=== PATIENT | male | born 1945 | race Caucasian/White ===

== ENCOUNTER 2019-05-30 04:44 | Inpatient (IN) ==
--- NOTE | 2019-05-22 09:06 | PAT Medication Instructions ---
Medication Instructions Date of Service May 22, 2019 Home Medications Testesterone 1 dose INJ UD allopurinol 100 mg PO QPM coQ10 (ubiquinol) 100 mg PO QPM dbgmf-px-1-emz-fbz-eluaepz-ast [krill oil] 1 cap PO QPM metformin 500 mg PO QPM naproxen sodium [Aleve] 440 mg PO Q8H PRN omeprazole 20 mg PO HS sertraline 100 mg PO QPM simvastatin 20 mg PO HS tamsulosin 0.8 mg PO QPM turmeric root extract 500 mg PO QPM Continue as directed Testesterone 1 dose INJ UD ASK your surgeon for instructions naproxen sodium [Aleve] 440 mg PO Q8H PRN STOP taking 2 weeks before surgery (or as soon as possible if surgery is within 2 weeks) coQ10 (ubiquinol) 100 mg PO QPM zitzj-ve-0-ewb-cgx-iguhozl-ast [krill oil] 1 cap PO QPM turmeric root extract 500 mg PO QPM Take morning of surgery With a small sip of water, OTHERWISE NOTHING TO EAT OR DRINK AFTER MIDNIGHT: allopurinol 100 mg PO QPM omeprazole 20 mg PO HS sertraline 100 mg PO QPM simvastatin 20 mg PO HS tamsulosin 0.8 mg PO QPM Other Notes If you have any questions please call us at [phone] or [phone] or [phone] or [phone]
--- NOTE | 2019-05-23 09:54 | Anesthesiology Consultation ---
Date of Service May 23, 2019 Assessment & Plan (1) Encounter for pre-operative examination: - Awaiting surgeon-ordered PCP clearance (KOLE Asher). - Awaiting preop testing (labs). - Awaiting preop EKG tracings (received written report from 04/2019- [facility]). - Possible difficult intubation: due to decreased cervical extension Chart Review Chart Review: Patient seen in Pre Admission Testing Teaching & Discussion Pre-Anesthesia Teaching/Discussion Notes: Instructed NPO after midnight before surgery,except medications with 15 cc of water. Medication instructions provided according to the PAT guidelines. History Surgery Operation Date: 05/30/19 07:30 Proposed Procedures p Left Reverse Shoulder Arthroplasty - Scott Marin M.D. Height/Weight Height: 5 ft 11 in Weight: 118 kg Allergies Allergy/AdvReac Type Severity Reaction Status Date / Time adhesive tape Allergy Unknown SKIN Verified 05/16/19 14:03 IRRITATION Medications Home Medications Medication Instructions Recorded Confirmed Last Taken Testesterone 1 dose INJ UD 05/16/19 Unknown allopurinol 100 mg PO QPM 05/16/19 05/16/19 Unknown coQ10 (ubiquinol) 100 mg PO QPM 05/16/19 05/16/19 Unknown bxggy-xz-2-ruf-mbj-vezvubz-ast 1 cap PO QPM 05/16/19 05/16/19 Unknown [krill oil] metformin 500 mg PO QPM 05/16/19 05/16/19 Unknown naproxen sodium [Aleve] 440 mg PO Q8H PRN 05/16/19 05/16/19 Unknown omeprazole 20 mg PO HS 05/16/19 05/16/19 Unknown sertraline 100 mg PO QPM 05/16/19 05/16/19 Unknown simvastatin 20 mg PO HS 05/16/19 05/16/19 Unknown tamsulosin 0.8 mg PO QPM 05/16/19 05/16/19 Unknown turmeric root extract 500 mg PO QPM 05/16/19 05/16/19 Unknown Past Medical History Medical History Arthritis BPH (benign prostatic hyperplasia) Cancer skin (s/p excision)- ?BCC vs. SCC Diabetes mellitus, type 2 NIDDM GERD (gastroesophageal reflux disease) controlled Hiatal hernia Hyperlipidemia Low testosterone testosterone injections q10 days Obesity Sleep apnea CPAP Exercise / Class Metabolic Activity III < 4 Walking/Shop/Light housework Past Surgical History Surgical History Fusion of spine S/P CERVICAL FRACTURE-RODS IN PLACE 1995 Hemorrhoids REMOVAL History of bowel resection FOR PERFORATION WITH COLOSTOMY/AND REVERSAL COLOSTOMY History of herniorrhaphy MULTIPLE History of repair of rotator cuff LEFT History of tonsillectomy History of total hip arthroplasty R/L History of total knee replacement R/L Past Anesthesia History No Hx of Anesthesia Complications and No Family Hx of Anesthesia Complications History of PONV No Hx of PONV and Hx of Motion Sickness Social History Smoking Status: Former smoker Do You Dip or Chew Tobacco: No Smoking End Date: QUIT 50 YRS AGO Hx Alcohol Use: Yes Alcohol type: beer and hard liquor alcohol intake frequency: a few times a month Hx Substance Use: No Review of Systems Reflux controlled. Patient denies chest pain, shortness of breath, cough, wheezing, palpitations. Physical Exam Vital Signs VITALS BP 145/91 P 67 TEMP 98.3 SP02 95%RA RESP 18 PHYSICAL Decreased cervical extension s/p cervical rods Full TMJ range of motion. TMD 3 finger breaths Mallampati Score 3 Dentition: missing sides on lower, full dentures on upper Lungs: clear throughout to auscultation Cardiac: regular rate and rhythm, no murmurs noted Spine: normal Carotid arteries: negative bruit Extremities: no edema Testing Laboratory Results 04/25/19 WBC 7.04 H/H 15.2/47.0 PLATELETS 258 SODIUM 136 POTASSIUM 4.2 CHLORIDE 103 CO2 29 BUN 16 CREATININE 1.30 GLUCOSE 114 HGBA1C 5.7% Electrocardiogram Date: 04/25/19 SR with occasional PVC's with occasional SPVC's. NS TWA (per written report; awaiting tracings) Chest X-Ray Date: 04/25/19 Chronic pleural thickening along right chest wall laterally and inferiorly. No lobar consolidations or infiltrate.
[2019-05-23 11:21] LABS: Appearance Urine Clear (Clear); Bacteria Urine Automated Negative (Negative); Bilirubin Urine Negative (Negative); Blood Urine Negative (Negative); Cast Urine Automated 0 /lpf (0-5); Color Urine Yellow; Glucose Urine UA Negative (Negative); Ketones Urine Negative (Negative); Leukocyte Esterase Urine Trace (Negative); Nitrite Urine Negative (Negative); Protein Urine Negative (Negative); RBC Urine Automated 0-4 /hpf (0-4); Specific Gravity Urine 1.018 (1.000-1.030); Urobilinogen Urine Negative (Negative)
[2019-05-23 11:25] LABS: Partial Thromboplastin Ratio 1.1; Partial Thromboplastin Time 30.6 Seconds (21.0-31.0); Prothrombin Time 10.5 Seconds (9.0-12.0)
--- NOTE | 2019-05-29 15:41 | History & Physical Report ---
Date of Service May 29, 2019 Assessment & Plan (1) Rotator cuff tear arthropathy of left shoulder: He again has left shoulder rotator cuff tear arthropathy. His previous rotator cuff repair from 2015 has failed, and he has a recurrent full-thickness tear with retraction and fatty atrophy of the rotator cuff muscle bellies. He has already failed a long course of conservative treatment with injections. I again offered him a reverse total shoulder arthroplasty, and he is in agreement with this plan. His diagnosis and the implant were explained in detail. We reviewed his patient specific implant planned today. He has been cleared for surgery by his primary care physician, and I reviewed this today. Risks, benefits, and alternatives of surgery were explained in detail. The surgical procedure, as well as postoperative recovery and rehabilitation, was also explained in detail. Risks include bleeding; infection; damage to surrounding structures such as nerves, blood vessels, and tendons that run in the area; persistent pain or stiffness; hardware failure; dislocation; brachial plexus palsy; blood clots; or need for further surgery. The patient understands all of this and wishes to proceed with surgery. Preoperative workup was completed today, and informed consent was obtained. Present on Admission?: Yes History of Present Illness Chief Complaint: Left shoulder pain Primary Care Provider: NO PCP Mr. Potter is a 73-year-old [id number]-wegb-juptuclk male who has had problems with his left shoulder for many years. He previously underwent a left shoulder rotator cuff repair back [place] [address] Haynes. He reports that after the surgery, he never really regained any good strength in that left shoulder. He had persistent pain and weakness, and poor function. This has progressively worsened over the past 3 to 4 years. He has required numerous injections into that left shoulder over the past 3 years. He thinks that he has had at least 6 to 8 injections in that left shoulder. These typically only last a few weeks. He last had an injection about 2 weeks ago, and it has already worn off. This pain is quite severe, and keeps him up at night. It is significantly limiting his activities of daily living. Allergies Allergy/AdvReac Type Severity Reaction Status Date / Time adhesive tape Allergy Unknown SKIN Verified 05/16/19 14:03 IRRITATION Home Medications Home Medications Medication Instructions Recorded Confirmed Type Testesterone 1 dose INJ UD 05/16/19 History allopurinol 100 mg PO QPM 05/16/19 05/16/19 History coQ10 (ubiquinol) 100 mg PO QPM 05/16/19 05/16/19 History qamyd-au-9-gvn-ekt-dsfwrfh-ast 1 cap PO QPM 05/16/19 05/16/19 History [krill oil] metformin 500 mg PO QPM 05/16/19 05/16/19 History naproxen sodium [Aleve] 440 mg PO Q8H PRN 05/16/19 05/16/19 History omeprazole 20 mg PO HS 05/16/19 05/16/19 History sertraline 100 mg PO QPM 05/16/19 05/16/19 History simvastatin 20 mg PO HS 05/16/19 05/16/19 History tamsulosin 0.8 mg PO QPM 05/16/19 05/16/19 History turmeric root extract 500 mg PO QPM 05/16/19 05/16/19 History Past Med/Surg History Medical History Arthritis BPH (benign prostatic hyperplasia) Cancer skin (s/p excision)- ?BCC vs. SCC Diabetes mellitus, type 2 NIDDM GERD (gastroesophageal reflux disease) controlled Hiatal hernia Hyperlipidemia Low testosterone testosterone injections q10 days Obesity Sleep apnea CPAP Surgical History Fusion of spine S/P CERVICAL FRACTURE-RODS IN PLACE 1995 Hemorrhoids REMOVAL History of bowel resection FOR PERFORATION WITH COLOSTOMY/AND REVERSAL COLOSTOMY History of herniorrhaphy MULTIPLE History of repair of rotator cuff LEFT History of tonsillectomy History of total hip arthroplasty R/L History of total knee replacement R/L Social History Preferred Language: Greenlandic Communication Ability: Effective Dry Ice Maker Required: No Beliefs That Will Affect Care: None Current Living Situation: Spouse Other Information That Helps Us Care for You: No Feels Safe at Home: Yes Safety Concerns: Feels Safe At This Time Smoking Status: Former smoker Do You Dip or Chew Tobacco: No ; Smoking End Date: QUIT 50 YRS AGO ; Second Hand Exposure: No ; Hx Alcohol Use: Yes Alcohol type: beer and hard liquor Hx Substance Use: No Physical Exam Physical Exam: General: The patient appears well developed and well nourished. Awake, alert, and oriented x 3. Appropriate mood and affect. Normal gait and station. Normal coordination and balance. Skin: The skin over the left shoulder shows no lesion or erythema. Inspection/Palpation: Visual inspection reveals no gross deformity of the left shoulder. There is no palpable focal swelling. No significant focal tenderness to palpation. Range of Motion: There is limitation in shoulder range of motion due to pain. He can only actively abduct up to about 70 degrees on his left shoulder, and about 100 degrees on his right. Stability: There is no gross ligamentous laxity. Strength: Supraspinatus strength is very poor. Infraspinatus strength is also very weak. Subscapularis strength is well-maintained. Sensation: The patient reports no numbness in the hand. Vascular: Hand is warm and well perfused. No diffuse edema. Results & Data Diagnostic Findings Previous x-rays and MRI of his left shoulder were reviewed. He has proximal migration of his humeral head, a full-thickness retracted rotator cuff tear, and fatty atrophy of his supraspinatus and infraspinatus muscle bellies. He has obvious anchors in the humeral head consistent with a previous rotator cuff repair. He does have some arthritic degeneration of the glenohumeral joint.
[2019-05-30] MEDS ORDERED: GABAPENTIN 300 MG CAP PO SCH (06:00)
[2019-05-30] MEDS ORDERED: ACETAMINOPHEN 500 MG TAB PO SCH (06:00)
[2019-05-30] MEDS ORDERED: ROPIVACAINE 0.5% HCL/PF 150 MG, BUPIVACAINE 0.5% MPF 30 ML, EPINEPHrine 30MG/30ML (OR U... INFIL SCH (06:00)
[2019-05-30] MEDS ORDERED: dexAMETHasone 4 MG TAB PO SCH (06:00)
[2019-05-30] MEDS ORDERED: CEFAZOLIN 2000MG 2,000 MG/15 ML SYR IV SCH (06:00)
[2019-05-30] MEDS ORDERED: LR 500ML BOLUS, THEN 15ML/HR IV SCH (06:00)
[2019-05-30] MEDS ORDERED: CeleBREX 200 MG CAP PO SCH (06:00)
[2019-05-30] MEDS ORDERED: FAMOTIDINE 20 MG TAB PO SCH (06:00)
[2019-05-30] MEDS ORDERED: BUPIVACAINE/EPINEPHRINE 0.25% 1:200,000 30 ML VIAL ONE (06:24)
[2019-05-30] MEDS ORDERED: fentaNYL citrate 100 MCG/2 ML VIAL ONE (06:59)
[2019-05-30] MEDS ORDERED: MIDAZOLAM HCL 1 MG/ML 2ML VIAL ONE (06:59)
[2019-05-30] MEDS ORDERED: ONDANSETRON INJ 2 MG/ML 2 ML VIAL IV PRN ×2 (06:59→10:59)
[2019-05-30] MEDS ORDERED: fentaNYL citrate 100 MCG/2 ML VIAL IV PRN (06:59)
[2019-05-30] MEDS ORDERED: ePHEDrine sulfate 50 MG/ML AMP IV PRN (06:59)
[2019-05-30] MEDS ORDERED: TRANEXAMIC ACID 1,000 MG in 0.9 % SODIUM CHLORIDE 100 ML IV ONE (06:59)
[2019-05-30] MEDS ORDERED: ATROPINE SULFATE 0.1 MG/ML 10ML SYR IV PRN (06:59)
[2019-05-30] MEDS ORDERED: BACITRACIN INJ 50,000 UNIT VIAL ONE (07:02)
[2019-05-30] MEDS ORDERED: BUPIVACAINE 0.5 % 5 MG/1 ML PF 10ML VIAL ONE (07:04)
--- NOTE | 2019-05-30 07:11 | History & Physical Bridge Note ---
Date of Service May 30, 2019 History & Physical Bridge Note I have examined the patient, reviewed the History & Physical and in the interval since the performance of the History & Physical I have noted the following changes of clinical significance: no changes noted
[2019-05-30] MEDS ORDERED: ROCURONIUM BROMIDE 10 MG/ML 5 ML VIAL ONE (08:20)
[2019-05-30] MEDS ORDERED: ONDANSETRON INJ 2 MG/ML 2 ML VIAL ONE (08:20)
[2019-05-30] MEDS ORDERED: PROPOFOL IV EMULSION 10 MG/ML 20 ML VIAL IV ONE (08:20)
[2019-05-30] MEDS ORDERED: KETAMINE HCL INJ 50 MG/ML 10 ML VIAL ONE (08:35)
[2019-05-30] MEDS ORDERED: NEOSTIGMINE METHYLSULFATE 5 MG/5 ML SYR ONE (08:42)
[2019-05-30] MEDS ORDERED: GLYCOPYRROLATE 0.2 MG/ML VIAL ONE ×2 (08:42→08:45)
[2019-05-30] MEDS ORDERED: PHENYLEPHRINE HCL 10 MG/ML VIAL ONE (09:15)
--- NOTE | 2019-05-30 10:17 | Post Operative Brief Note ---
Immediate Post Op Note v1 Date of Surgery May 30, 2019 Pre & Post Diagnosis Operation Date: 05/30/19 07:15 Pre-Op Diagnosis: Left Shoulder Rotator Cuff Tear Arthropathy Post-Op Diagnosis: Left Shoulder Rotator Cuff Tear Arthropathy I identified the patient and participated in the time-out.: Yes Procedure Operation Date: 05/30/19 07:15 Actual Procedures p Left Reverse Shoulder Arthroplasty(Left) - Scott Marin M.D. Surgeon Scott Marin Director Of Field Sales Santino Friedman PA-C Estimated Blood Loss 100 Findings Consistent with Post-Op Diagnosis Anesthesia Type General Regional Complications none Disposition Disposition: Recovery Room Overlapping Procedure I was present for: the critical portions of procedure. I was immediately available: during the entire case.
--- NOTE | 2019-05-30 10:22 | Operative Report ---
Post Operative Report Pre & Post Diagnosis Operation Date: 05/30/19 07:15 Pre-Op Diagnosis: Left Shoulder Rotator Cuff Tear Arthropathy Post-Op Diagnosis: Left Shoulder Rotator Cuff Tear Arthropathy I identified the patient and participated in the time-out.: Yes Procedure Operation Date: 05/30/19 07:15 Actual Procedures Left Reverse Total Shoulder Arthroplasty (87756) with biceps tenodesis (45877) - Scott Marin M.D. Surgeon Scott Marin Estate Conservator Santino Friedman PA-C Estimated Blood Loss 100 Findings Consistent with Post-Op Diagnosis Specimens None Drains None Anesthesia Type General Regional Complications none Disposition Disposition: Recovery Room Indications Mr. Potter is a 73-year old male with chronic left shoulder pain. Preoperative imaging showed rotator cuff tear arthropathy. Description of Procedure Left reverse Total Shoulder Arthroplasty (15546) with biceps tenodesis () Components Implanted: Tornier Reverse Total Shoulder implants Perform glenoid baseplate: 29mm, 15 degree full wedge with 6.5mm central screw and 5.0mm peripheral screws Glenosphere: 39mm, 3mm eccentric offset Ascend Flex humeral stem: 4B Standard length (78mm) Humeral tray: 1.5mm offset, +0mm thickness Polyethylene insert: 39mm, +6mm thickness Patient was identified in the preoperative holding area. Operative extremity was marked. Regional blockade was given by the Anesthesia Staff. Patient was then brought back to the operating room, and general anesthesia was induced without complication. Appropriate weight-based dose of Ancef was infused intravenously for antibiotic prophylaxis. The patient was then placed in the beachchair position. Left arm was then prepped and draped in a standard sterile fashion using Chlorhexidine prep. A standard deltopectoral incision was made through the skin and subcutaneous tissue. The cephalic vein was identified and retracted medially. Small branches to the deltoid were coagulated as necessary. The clavipectoral fascia was then incised and the subdeltoid space was opened. The rotator cuff was found to be deficient, and I therefore decided to perform a reverse total shoulder arthroplasty as planned preoperatively. The biceps tendon was identified within the bicipital groove and tenodesed at the superior border of the pectoralis tendon with #2 FiberWire sutures. The biceps tendon was then divided proximal to the tenodesis site and the rotator interval was opened. The proximal portion of the biceps tendon was excised. The remaining subscapularis tendon was elevated subperiosteally off of the lesser tuberosity and tagged with a #0 Vicryl suture. The glenohumeral joint was then dislocated, and large osteophytes were debrided with a ronguer. The humeral head cut was then made in the appropriate inclination and version using the cutting guide. The intramedullary canal of the humerus was then opened with a canal finder. The humeral canal was then sequentially broached to the appropriate size. A protective cap was then placed on top of the humeral trial. I then turned my attention to the glenoid. The proximal stump of the biceps tendon was excised, along with the labrum circumferentially around the glenoid. The blueprint drill guide was then positioned on the glenoid, and the guidepin was then inserted. The 15 degree angled reamer reamer was then inserted over the guidepin and an reamed to an appropriate depth. The central screw hole was drilled and tapped, and appropriate length 6.5mm central screw was selected. The baseplate was then implanted into place according to our preoperative blueprint plan by tightening down the central screw. A peripheral 5mm nonlocking screw was placed superiorly first for additional compression of the baseplate, and then additional locking 5 mm peripheral screws were placed to complete fixation of the baseplate. Glenosphere was then impacted and secured. A trial humeral tray and insert were placed on the trial humeral stem, and a trial reduction was carried out. Once I achieved acceptable joint stability and range of motion with the trial implants, the final humeral implants were a ssembled on the back table and then impacted into position. I then took the shoulder through full range of motion to ensure good stability and acceptable motion. Wound was then copiously irrigated with sterile saline. Deep fascia was closed with 0 V-lock suture. Subcutaneous tissue was closed with 2-0 V-lock, and skin was closed with 3-0 V-lock. Skin was then sealed with Dermabond. Sterile d ressings were then applied with a waterproof silver-impregnated dressing. The drapes were removed, the patient was awakened from anesthesia, and taken to the Post Anesthesia Care Unit in stable condition. There were no immediate complications from the procedure. I was present and scrubbed for the entire procedure. Due to the complex nature of the procedure, the entire surgery was performed wi th the operational assistance of Santino Friedman PA-C. The warehouse administrative assistant, under direct supervision, was involved in the performance of all aspects of the surgical procedure including patient positioning, tissue retraction, hemostasis, wound closure, and dressing application. I attest to the content of the Intraoperative Record and any orders documented therein. Any exceptions are noted below.
[2019-05-30] MEDS ORDERED: NALOXONE HCL 0.4 MG/1 ML VIAL/CARP IV PRN (10:59)
[2019-05-30] MEDS ORDERED: MAGNESIUM HYDROXIDE SUSP 30 ML UDC PO PRN (10:59)
[2019-05-30] MEDS ORDERED: METOCLOPRAMIDE HCL INJ 5 MG/ML 2 ML VIAL IV PRN (10:59)
[2019-05-30] MEDS ORDERED: bisacodyL 10 MG SUPP PR PRN (10:59)
[2019-05-30] MEDS ORDERED: OXYCODONE HCL IR 5 MG TAB (IMMEDIATE RELEASE) PO PRN (10:59)
[2019-05-30] MEDS ORDERED: SODIUM CHLORIDE 0.9% 1000ML 1,000 ML IV SCH (11:00)
--- NOTE | 2019-05-30 11:21 | XRay Report ---
XR shoulder LT 1V CLINICAL HISTORY: Postoperative evaluation. COMPARISON: None FINDINGS: Alignment of the left shoulder arthroplasty is anatomic. There is no fracture or unexpecte d radiopaque foreign body. Anterior cervical spine fusion is incidentally noted. IMPRESSION: Expected findings following left shoulder arthroplasty. Electronically signed by: Tarun Cueto M.D. 05/30/2019 11:20 AM
--- NOTE | 2019-05-30 11:22 | Anesthesiology Progress Note ---
Date of Service May 30, 2019 k Anesthesia Post Procedure Vital Signs Vital Signs: Temp Pulse Pulse Pulse Resp BP BP 05/30/19 11:20 79 17 05/30/19 11:19 36.4 C L 05/30/19 11:15 81 15 135/82 05/30/19 11:10 79 22 139/79 05/30/19 11:06 87 24 140/74 05/30/19 11:05 83 20 05/30/19 11:00 83 17 135/91 05/30/19 10:55 82 18 137/80 05/30/19 10:50 81 17 134/81 05/30/19 10:45 86 21 142/87 H 05/30/19 10:41 89 21 112/85 05/30/19 10:40 89 15 05/30/19 10:36 35.8 C L 92 H 94 H 20 141/85 H 141/85 H 05/30/19 05:27 36.6 C 77 20 142/81 H Pulse Ox 05/30/19 11:20 96 05/30/19 11:19 96 05/30/19 11:15 96 05/30/19 11:10 94 05/30/19 11:06 97 05/30/19 11:05 95 05/30/19 11:00 94 05/30/19 10:55 96 05/30/19 10:50 97 05/30/19 10:45 96 05/30/19 10:41 95 05/30/19 10:40 95 05/30/19 10:36 95 05/30/19 05:27 96 Pain Intensity Left Shoulder: Pain Intensity: 0 Transfer of Care Handoff Completed per policy Notes Mental Status: alert / awake / arousable and participated in evaluation Patient Amnestic to Procedure: Yes Nausea / Vomiting: adequately controlled Pain: adequately controlled Airway Patency, RR, SpO2: stable & adequate BP & HR: stable & adequate Hydration State: stable & adequate Anesthetic Complications: no major complications apparent and Pt Satisfied with anesthetic care
[2019-05-30] MEDS ORDERED: NAPROXEN 375 MG TAB PO PRN (11:40)
[2019-05-30] MEDS: CEFAZOLIN 2000MG 2,000 MG/15 ML SYR IV SCH ×2 (15:33→22:55)
[2019-05-30] MEDS: DOCUSATE SODIUM 100 MG CAP PO SCH (20:27)
[2019-05-30] MEDS ORDERED: PANTOprazole 40 MG TAB PO SCH (21:00)
[2019-05-30] MEDS ORDERED: METFORMIN HCL 500 MG TAB PO SCH (21:00)
[2019-05-30] MEDS ORDERED: SERTRALINE HCL 100 MG TABLET PO SCH (21:00)
[2019-05-30] MEDS ORDERED: SIMVASTATIN 20 MG TAB PO SCH (21:00)
[2019-05-30] MEDS ORDERED: NON-FORMULARY MEDICATION (Coq10 (Ubiquinol) 100 MG) PO SCH (21:00)
[2019-05-30] MEDS ORDERED: NON-FORMULARY MEDICATION (Turmeric Root Extract 500 MG) PO SCH (21:00)
[2019-05-30] MEDS ORDERED: NON-FORMULARY MEDICATION (Krill-Om-3-Dha-Epa-Phospho-Ast [Krill Oil] 1 CAP) PO SCH (21:00)
[2019-05-30] MEDS ORDERED: allopurinoL 100 MG TAB PO SCH (21:00)
[2019-05-30] MEDS ORDERED: SENNA 8.6 MG TAB PO SCH (21:00)
[2019-05-30] MEDS ORDERED: TAMSULOSIN HCL 0.4 MG CAP PO SCH (21:00)
[2019-05-30] MEDS: ACETAMINOPHEN 500 MG TAB PO SCH (22:55)
[2019-05-30] MEDS: IBUPROFEN 600 MG TAB PO SCH (22:55)
[2019-05-31] MEDS: IBUPROFEN 600 MG TAB PO SCH ×2 (05:09→09:30)
[2019-05-31] MEDS: ACETAMINOPHEN 500 MG TAB PO SCH ×2 (05:09→09:30)
[2019-05-31 05:20] LABS: Hematocrit (blood only) 41.6 % (42-52); Hemoglobin 13.8 g/dL (14.0-18.0); Mean Corpuscular Hemoglobin 29.3 pg (25-34); Mean Corpuscular Hgb Conc 33.2 g/dL (32-36); Mean Corpuscular Volume 88.3 fL (80-100); Mean Platelet Volume 9.3 fL (7.4-10.4); Platelet Count 254 K/uL (130-400); RDW Coefficient of Variation 14.6 % (11.5-14.5); RDW Standard Deviation 47.2 fL (36.4-46.3); Red Blood Count 4.71 M/uL (4.7-6.1); White Blood Count 13.61 K/uL (4.8-10.8)
[2019-05-31 05:50] LABS: BUN Creatinine Ratio 13.5 (10-20); Calcium 8.5 mg/dl (8.5-10.1); Est GFR (African American) 56.9; Est GFR (Non-African American) 49.1; Potassium 4.5 mmol/L (3.5-5.1)
[2019-05-31] MEDS ORDERED: LEVOTHYROXINE SODIUM 50 MCG TABLET PO SCH (06:30)
--- NOTE | 2019-05-31 07:45 | Anesthesiology Progress Note ---
Date of Service May 31, 2019 Anesthesia Post Procedure Vital Signs Vital Signs: Temp Pulse Pulse Pulse Resp BP BP 05/31/19 07:22 36.8 C 87 16 107/67 05/31/19 03:00 36.4 C L 77 18 136/85 05/30/19 23:10 36.7 C 85 18 127/81 05/30/19 14:54 36.7 C 91 H 18 142/93 H 05/30/19 13:51 93 H 16 128/75 05/30/19 12:41 87 16 131/72 05/30/19 12:15 87 17 124/86 05/30/19 11:45 36.8 C 83 18 124/80 05/30/19 11:35 79 18 135/87 05/30/19 11:30 78 15 141/86 H 05/30/19 11:26 83 18 136/91 05/30/19 11:25 77 16 05/30/19 11:20 79 17 05/30/19 11:19 36.4 C L 05/30/19 11:15 81 15 135/82 05/30/19 11:10 79 22 139/79 05/30/19 11:06 87 24 140/74 05/30/19 11:05 83 20 05/30/19 11:00 83 17 135/91 05/30/19 10:55 82 18 137/80 05/30/19 10:50 81 17 134/81 05/30/19 10:45 86 21 142/87 H 05/30/19 10:41 89 21 112/85 05/30/19 10:40 89 15 05/30/19 10:36 35.8 C L 92 H 94 H 20 141/85 H 141/85 H Pulse Ox 05/31/19 07:22 94 05/31/19 03:00 92 05/30/19 23:10 91 05/30/19 14:54 95 05/30/19 13:51 94 05/30/19 12:41 94 05/30/19 12:15 96 05/30/19 11:45 93 05/30/19 11:35 96 05/30/19 11:30 96 05/30/19 11:26 95 05/30/19 11:25 97 05/30/19 11:20 96 05/30/19 11:19 96 05/30/19 11:15 96 05/30/19 11:10 94 05/30/19 11:06 97 05/30/19 11:05 95 05/30/19 11:00 94 05/30/19 10:55 96 05/30/19 10:50 97 05/30/19 10:45 96 05/30/19 10:41 95 05/30/19 10:40 95 05/30/19 10:36 95 Pain Intensity Left Shoulder: Pain Intensity: 0 Notes Mental Status: alert / awake / arousable and participated in evaluation Nausea / Vomiting: adequately controlled Pain: adequately controlled Airway Patency, RR, SpO2: stable & adequate BP & HR: stable & adequate Hydration State: stable & adequate Neuraxial Anesthesia: sensory block resolved
--- NOTE | 2019-05-31 08:31 | Orthopedic Progress Note ---
Date of Service May 31, 2019 Assessment & Plan (1) Rotator cuff tear arthropathy of left shoulder: POD 1 s/p Left Reverse TSA PT today. DVT prophylaxis - ASA, SCD's Pain management as written. DC planning - OPPT upon discharge. Plan for dc to home today. Subjective Pt sitting up in chair at bedside. No complaints. Pain controlled. Denies SOB,CP,LH. Hoping to go home today. Physical Exam Physical Exam: Awake, alert. Dressings C/D/I. Has some residual numbness in the left thumb but ROM of the wrist/fingers wnl. Rest of sensation intact. Sling in place. Cap refill < 2 seconds. Results & Data Vital Signs (Past 12 Hours) Vital Signs Temp Pulse Resp BP Pulse Ox 05/31/19 07:22 36.8 C 87 16 107/67 94 05/31/19 03:00 36.4 C L 77 18 136/85 92 05/30/19 23:10 36.7 C 85 18 127/81 91
[2019-05-31] MEDS: DOCUSATE SODIUM 100 MG CAP PO SCH (08:36)
[2019-05-31] MEDS ORDERED: ASPIRIN 325 MG ECTAB PO SCH ×2 (09:00)
[2019-05-31] MEDS ORDERED: MULTIVITAMIN TAB PO SCH (09:00)
--- NOTE | 2019-05-31 17:04 | Discharge Summary ---
Date of Service May 31, 2019 Admission HPI Per Admitting Provider Mr. Potter is a 73-year-old [id number] male who has had problems with his left shoulder for many years. He previously underwent a left shoulder rotator cuff [place] back [place] [address] Haynes. He reports that after the surgery, he never really regained any good strength in that left shoulder. He had persistent pain and weakness, and poor function. This has progressively worsened over the past 3 to 4 years. He has required numerous injections into that left shoulder over the past 3 years. He thinks that he has had at least 6 to 8 injections in that left shoulder. These typically only last a few weeks. He last had an injection about 2 weeks ago, and it has already worn off. This pain is quite severe, and keeps him up at night. It is significantly limiting his activities of daily living. Principal Diagnosis Left shoulder rotator cuff tear arthropathy Discharge Data Allergies Allergy/AdvReac Type Severity Reaction Status Date / Time adhesive tape Allergy Unknown SKIN Verified 05/30/19 05:21 IRRITATION Consultations 05/30/19 10:59 Consult Case Management - Discharge Planning Routine Procedures Performed Operation Date: 05/30/19 07:15 Actual Procedures p Left Reverse Shoulder Arthroplasty(Left) - Scott Marin M.D. Ordered Studies 05/30/19 05:00 US - OR guided needle placemen Routine Hospital Course (1) Rotator cuff tear arthropathy of left shoulder: He underwent a left reverse total shoulder arthroplasty on the date of admission without complication. He tolerated the procedure well, and was transferred up to the general orthopedic surgery floor in stable condition. Standard perioperative antibiotics and DVT prophylaxis was initiated. He did very well, and pain was well controlled on oral medications on the morning after surgery. He was determined to be safe and ready for discharge to home. Total Time Total Time Spent Total Time Spent (In Minutes): 20 Discharge Plan Discharge Items Patient Disposition: Home - Self-Care Reason For Visit: Left Shoulder Rotator Cuff Tear Arthropathy Discharge Diagnosis: Left Shoulder Rotator Cuff Tear Arthropathy Activity: Per Instructions section Lifting: Wait until after follow-up appointment Non-emergency contact: Surgeon Call non-emergency contact if: you have any medication questions, your pain is not controlled and your temperature is above 101.5 Follow-up/Referrals: Scott Marin M.D. [Physician] - PCP,NO [Primary Care Provider] - Diet: Regular Ambulatory Orders: Basic Metabolic Panel (Routine) Timeframe: 3 Days Location: Determined by Patient Ordered By: Ck Grady Attending Provider Instructions: Things to Watch Out For -Go to the Emergency Room if you have sudden onset of nausea, vomiting, chest pain, shortness of breath, or uncontrollable pain. -Call the clinic or go to the Emergency Room if you have a sudden increase in the amount of wound drainage or the drainage becomes thick, yellow or green, or foul-smelling. -For routine questions, call the clinic during regular business hours (8am-5pm). For urgent issues after regular business hours, you may call the clinic to be connected to the on-call physician. Dressings -A special waterproof, silver-impregnated dressing was placed on your shoulder. Keep this dressing in place for 1 week after surgery. You may shower with the waterproof dressing in place, but do not soak the dressing in the bathtub or pool. -One week after surgery, you may remove the waterproof dressing. You may continue to shower, and let water run BRIEFLY over the incision, but do not soak the incision in the bathtub or pool for 2 weeks. You may also gently clean the incision with mild soap and water; pat the incision dry after cleaningdo not rub the incision. Apply a new dressing daily thereafter. Shoulder Exercises -Keep your operative shoulder in the sling for comfort, except as detailed below. -You should come out of the sling 4-5 times a day for passive pendulum exercises: lean over and swing your arm in a circular pattern. -You should also do active-assisted forward flexion exercises: use your opposite hand to lift your operative arm forward to 90 degrees. -Do not use your arm to push yourself up out of bed or up from a seated position. -Do not flex your elbow (curl motion) or supinate your forearm (rotating palm up) against resistance. Pain Medicines -You have been prescribed an anti-inflammatory (Motrin/ibuprofen) and a non- narcotic pain medicine (Tylenol/acetaminophen). These are your primary pain me dications. Take them each every 6 hours as instructed. It is recommended that you stagger these medicines every 3 hours (i.e. take ibuprofen at 8:00 am, then acetaminophen at 11:00 am, then ibuprofen at 2:00 pm, etc) -DO NOT take any additional anti-inflammatories (Advil, Aleve/naproxen, Mobic/meloxicam, Celebrex) or any additional Tylenol/acetaminophen products with these prescribed medications. -You have also been prescribed an additional narcotic pain medication (oxycodone). Take this medicine ONLY for breakthrough pain not controlled by the ibuprofen and acetaminophen. -Do not drive or operate heavy machinery while taking the narcotic medication. -Common side effects of narcotic pain medicines include itching, nausea, constipation, and feeling loopy. However, if you develop a rash or hives, stop taking the medicine and call the clinic. If you develop swelling in your throat or difficulty breathing, go to the Emergency Room or call 911 IMMEDIATELY. -You may take over the counter stool softeners if needed for constipation. Aspirin -Take a full strength (325mg) aspirin every day for 4 weeks (28 days) to prevent blood clots. -If you were taking a baby aspirin (81mg) prior to surgery, you may resume taking this 81mg dose after you complete the 28-day course of the 325mg strength dose; do not take the 325mg dose in addition to your 81mg dose. -Be aware that you will bruise easier while taking Aspirin; this is normal. However, if you develop a significantly large area of swelling after an injury, or have a cut that will not stop bleeding, call the clinic or go to the Emergency Room immediately. Pending Studies at Discharge: No Stand-Alone Forms: My [facility] Medications and DC Order Prescriptions: New aspirin 325 mg Tablet,Delayed Release (Dr/Ec) 325 mg PO DAILY Qty: 28 RF: 0 oxycodone 5 mg Tablet 5 mg PO Q6 PRN (Reason: pain) 30 Days Qty: 30 RF: 0 acetaminophen [Tylenol Extra Strength] 500 mg Tablet 500 mg PO Q6H Qty: 60 RF: 2 ibuprofen 600 mg Tablet 600 mg PO Q6H Qty: 60 RF: 2 Continued metformin 500 mg Tablet 500 mg PO QPM RF: 0 sertraline 100 mg Tablet 100 mg PO QPM RF: 0 allopurinol 100 mg Tablet 100 mg PO QPM RF: 0 tamsulosin 0.4 mg Capsule 0.8 mg PO QPM RF: 0 simvastatin 20 mg Tablet 20 mg PO HS RF: 0 omeprazole 20 mg Capsule,Delayed Release(Dr/Ec) 20 mg PO HS RF: 0 turmeric root extract 500 mg Capsule 500 mg PO QPM RF: 0 coQ10 (ubiquinol) 100 mg Capsule 100 mg PO QPM RF: 0 [id number] [krill oil] [id number] mg Capsule 1 cap PO QPM RF: 0 Testesterone 1 dose INJ UD RF: 0 levothyroxine 50 mcg Tablet 50 mcg PO DAILY RF: 0 Discontinued naproxen sodium [Aleve] 220 mg Capsule 440 mg PO Q8H PRN (Reason: Pain) RF: 0 Discharge Orders: Discharge Order (Routine); Ordered 05/31/19 Ordered By: Ck Stringer/Other Patient Handouts: Surgery Prevent DVT After, After Reverse Total Shoulder Replacement Admission Data Admit Date/Time: 05/30/19 10:59 Attending Provider: Scott Marin Admit Provider: Scott Marin Primary Care Provider: PCP,NO Other Interventions: Discharge Summary Assessment (RN) Last Done: 05/31/19 11:47 DC Date/Time DO NOT enter until pt leaves facility: 05/31/19 13:16
== END 2019-05-31 13:16 | disposition home or self-care (01) | DRG 483 ==
LOC: ASU 04:44 → 3E 10:59

== ENCOUNTER 2024-12-11 08:03 | Inpatient (IN) ==
--- NOTE | 2024-08-12 11:21 | PAT Medication Instructions ---
Medication Instructions Date of Service August 12, 2024 Home Medications Medication Instructions Recorded acetaminophen 500 mg tablet 500 mg PO Q6H #60 tabs 05/30/19 (Tylenol Extra Strength) aspirin 325 mg tablet,delayed 325 mg PO DAILY #28 tabs 05/30/19 release ibuprofen 600 mg tablet 600 mg PO Q6H #60 tabs 05/30/19 allopurinol 100 mg tablet 100 mg PO QPM coQ10 (ubiquinol) 100 mg capsule 100 mg PO QPM omeprazole 20 mg capsule,delayed release 20 mg PO HS sertraline 100 mg tablet 100 mg PO QPM simvastatin 20 mg tablet 20 mg PO HS tamsulosin 0.4 mg capsule 0.8 mg PO QPM turmeric root extract 500 mg capsule 500 mg PO QPM acetaminophen 500 mg tablet (Tylenol Extra Strength) 500 mg PO Q6H aspirin 325 mg tablet,delayed release 325 mg PO DAILY ibuprofen 600 mg tablet 600 mg PO Q6H levothyroxine 50 mcg tablet 50 mcg PO QAM ASK your surgeon for instructions ibuprofen 600 mg tablet 600 mg PO Q6H ASK your prescriber and surgeon aspirin 325 mg tablet,delayed release 325 mg PO DAILY STOP taking 2 weeks before surgery (or as soon as possible if surgery is within 2 weeks) coQ10 (ubiquinol) 100 mg capsule 100 mg PO QPM turmeric root extract 500 mg capsule 500 mg PO QPM Take morning of surgery With a small sip of water, OTHERWISE NOTHING TO EAT OR DRINK AFTER MIDNIGHT: acetaminophen 500 mg tablet (Tylenol Extra Strength) 500 mg PO Q6H levothyroxine 50 mcg tablet 50 mcg PO QAM Take evening before surgery allopurinol 100 mg tablet 100 mg PO QPM omeprazole 20 mg capsule,delayed release 20 mg PO HS sertraline 100 mg tablet 100 mg PO QPM simvastatin 20 mg tablet 20 mg PO HS tamsulosin 0.4 mg capsule 0.8 mg PO QPM acetaminophen 500 mg tablet (Tylenol Extra Strength) 500 mg PO Q6H Other Notes If you have any questions please call us at [phone] or [phone] or [phone] or [phone]
--- NOTE | 2024-08-15 12:20 | Anesthesiology Consultation ---
Date of Service August 15, 2024 Assessment & Plan (1) Encounter for pre-operative examination: - Check BSG DOS - Infectious disease screening: Per assessment on 08/15/24- No known recent infectious disease contacts or current infectious disease symptoms. - Hx difficult intubation: Left reverse shoulder arthroplasty (05/30/19): "Pt with poor view with MAC 4, easy mask. Short neck. Glidescope #3 used without difficulty" - Abnormal preop testing: Elevated creatinine (1.5) and abnormal preop CXR (faint bibasilar airspace opacities) on preop testing. Note written to PCP- Awaiting surgeon-ordered PCP preop evaluation + preop testing response (Laya Bergman PAC/[facility], appt 08/22). Patient otherwise acceptable risk for surgery. Chart Review Chart Review: Patient seen in Pre Admission Testing Teaching & Discussion Pre-Anesthesia Teaching/Discussion Notes: Instructed NPO after midnight before surgery,except medications with 15 cc of water. Medication instructions p rovided according to the PAT guidelines. History Surgery Operation Date: 09/04/24 10:05 Proposed Procedures p L4-L5 Decompression and Fusion, Spinal Cord Monitoring - Karan Claros, Height/Weight Height: 5 ft 10.5 in Weight: 119.2 kg Allergies Allergy/AdvReac Type Severity Reaction Status Date / Time adhesive tape Allergy Unknown Skin Verified 08/15/24 12:33 irritation Medications Home Medications Medication Instructions Recorded Confirmed Last Taken allopurinol 100 mg tablet 100 mg PO QPM 05/16/19 08/06/24 Unknown coQ10 (ubiquinol) 100 mg capsule 100 mg PO QPM 05/16/19 08/06/24 Unknown omeprazole 20 mg capsule,delayed 20 mg PO HS 05/16/19 08/06/24 Unknown release sertraline 100 mg tablet 100 mg PO QPM 05/16/19 08/06/24 Unknown simvastatin 20 mg tablet 20 mg PO HS 05/16/19 08/06/24 Unknown tamsulosin 0.4 mg capsule 0.8 mg PO QPM 05/16/19 08/06/24 Unknown turmeric root extract 500 mg 500 mg PO QPM 05/16/19 08/06/24 Unknown capsule acetaminophen 500 mg tablet 500 mg PO Q6H #60 tabs 05/30/19 08/06/24 Unknown (Tylenol Extra Strength) aspirin 325 mg tablet,delayed 325 mg PO DAILY #28 tabs 05/30/19 08/06/24 Unknown release ibuprofen 600 mg tablet 600 mg PO Q6H #60 tabs 05/30/19 08/06/24 Unknown levothyroxine 50 mcg tablet 50 mcg PO QAM 05/30/19 08/06/24 05/29/19 07:00 Past Medical History Medical History Arthritis BPH (benign prostatic hyperplasia) Cancer Skin (s/p excision)- ?BCC vs. SCC Diabetes mellitus, type 2 Per records, patient denies GERD (gastroesophageal reflux disease) Controlled Gout Hiatal hernia Hyperlipidemia Hypothyroidism Obesity Sleep apnea CPAP (compliant) Exercise / Class Metabolic Activity III < 4 Walking/Shop/Light housework Past Surgical History Surgical History Fusion of spine (1995) Cervical rods (r/t cervical fracture) Hemorrhoids Removal History of bowel resection R/t perforation with colostomy > reversal colostomy History of herniorrhaphy Multiple History of left shoulder replacement Left reverse shoulder arthroplasty (05/30/19): "Pt with poor view with MAC 4, easy mask. Short neck. Glidescope #3 used without difficulty" History of repair of rotator cuff Left History of tonsillectomy History of total hip arthroplasty R/L History of total knee replacement R/L Hx of colonoscopy Past Anesthesia History Difficult Airway (Left reverse shoulder arthroplasty (05/30/19): "Pt with poor view with MAC 4, easy mask. Short neck. Glidescope #3 used without difficulty") and No Family Hx of Anesthesia Complications History of PONV No Hx of PONV and No Hx of Motion Sickness Social History Smoking Status: Former smoker Do You Dip or Chew Tobacco: No Smoking End Date: Quit 50 years ago Hx Alcohol Use: Yes Alcohol type: beer and hard liquor alcohol intake frequency: a few times a month Hx Substance Use: No substance use type: does not use Review of Systems Patient denies chest pain, shortness of breath, fever, chills, cough, wheezing. Physical Exam Vital Signs BP 116/70 P 93 TEMP 98.5 SP02 95%RA RESP 18 Physical Decreased cervical extension range of motion. Full TMJ range of motion. TMD 3 finger breaths Mallampati Score III Dentition: full upper denture, lower several missing Lungs: clear throughout to auscultation Cardiac: regular rate and rhythm, no murmurs noted Spine: normal Carotid arteries: negative bruit Extremities: no LE edema Lab Results Anesthesia Preop Results Results Anesthesia Widget: WBC 7.49 K/ul (4.8-10.8) 08/15/24 Hgb 14.9 g/dl (14.0-18.0) 08/15/24 Hct 43.7 % (42.0-52.0) 08/15/24 Plt 234 K/uL (130-400) 08/15/24 Na 139 mmol/L (136-145) 08/15/24 K 4.2 mmol/L (3.5-5.1) 08/15/24 Cl 104 mmol/L (98-107) 08/15/24 CO2 24 mmol/L (21-32) 08/15/24 BUN 20 mg/dl (6-23) 08/15/24 Creat 1.50 mg/dl (0.6-1.4) H 08/15/24 Glucose Level 128 mg/dl (70-99(Fasting)) H 08/15/24 PT 10.8 Seconds (9.0-12.0) 08/15/24 PTT 29 Seconds (21-31) 08/15/24 INR 1.0 (0.9-1.1) 08/15/24 HA1c 6.0 % (4.5-5.6) H 08/15/24 Urine Color Yellow 08/15/24 Urine Appearance Clear (Clear) 08/15/24 Urine pH 5.5 (4.5-7.5) 08/15/24 Urine Specific Dexter 1.019 (1.000-1.030) 08/15/24 Urine Protein Negative (Negative) 08/15/24 Urine Glucose (UA) Negative (Negative) 08/15/24 Urine Ketones Trace (Negative) H 08/15/24 Urine Blood Negative (Negative) 08/15/24 Urine Nitrite Negative (Negative) 08/15/24 Urine Bilirubin Negative (Negative) 08/15/24 Urine Urobilinogen Negative (Negative) 08/15/24 Urine Leukocyte Esterase Negative (Negative) 08/15/24 Blood Type O Positive 08/15/24 Antibody Screen NEGATIVE 08/15/24 Testing Electrocardiogram Date: 08/15/24 NSR at 86bpm. RBBB. Chest X-Ray Date: 08/15/24 FINDINGS: No lines and tubes are seen. Left shoulder arthroplasty is seen. The cardiomediastinal silhouette is normal. Faint bibasilar airspace opacities are seen. No evidence of pleural effusion or pneumothorax. IMPRESSION: Faint bibasilar airspace opacities which may represent atelectasis, pneumonia, and/or aspiration.
--- NOTE | 2024-11-29 10:16 | Anesthesiology Consultation ---
Date of Service November 29, 2024 Assessment & Plan (1) Encounter for pre-operative examination: Chart Review Chart Review: Acceptable Risk for Surgery (Pending DOS labs) and Patient NOT seen in Pre Admission Testing - Check BSG AM DOS - Check CBC with diff and BMP stat DOS (not updated preoperatively) - Hx difficult intubation: Left reverse shoulder arthroplasty (05/30/19): "Pt with poor view with MAC 4, easy mask. Short neck. Glidescope #3 used without difficulty" -Infectious Disease screening: Per PAT nursing assessment on 11/28/24. No known infectious disease contacts in past 10 days or current infectious disease symptoms. No recent travel outside the country. Seen by general surgery 10/09/2024 = seen for follow-up after cyst removals. Patient has history of removal of multiple infected cysts. Patient is doing fine. Denies any pain, drainage, fever or chills. Wounds are healing with no signs of infection. Okay to proceed with back surgery at any point. - PCP visit + preop testing response (08/22/24): "Labs reviewedcreatinine was slightly elevated. GFR slightly lower. Pt Was taking ibuprofen and not drinking water prior. Notes that he is going to the bathroom normally.. So much ibuprofen and repeat labs.. EKG reviewedstable from prior EKG.. CXR reviewedthe bibasilar opacities are similar to prior XR in 2023. Most likely scarring.. Pulmonary: No distress, CTA, no adventitious sounds.. Pt Lowmod risk for surgery.. Labs reviewed okay, CXR and EKG okay" History Surgery Operation Date: 09/04/24 10:05 Proposed Procedures p L4-L5 Decompression and Fusion, Spinal Cord Monitoring - Karan Claros DO Operation Date: 12/11/24 07:45 Proposed Procedures p L4-L5 Decompression and Fusion, Spinal Cord Monitoring - Karan Claros DO Height/Weight Height: 5 ft 10.5 in Weight: 115.212 kg Allergies Allergy/AdvReac Type Severity Reaction Status Date / Time adhesive tape Allergy Unknown Skin Verified 11/28/24 11:50 irritation Medications Home Medications Medication Instructions Recorded Confirmed Last Taken allopurinol 100 mg tablet 100 mg PO QPM 05/16/19 11/28/24 Unknown coQ10 (ubiquinol) 100 mg capsule 100 mg PO QPM 05/16/19 11/28/24 Unknown omeprazole 20 mg capsule,delayed 20 mg PO HS 05/16/19 11/28/24 Unknown release sertraline 100 mg tablet 100 mg PO QPM 05/16/19 11/28/24 Unknown simvastatin 20 mg tablet 20 mg PO HS 05/16/19 11/28/24 Unknown tamsulosin 0.4 mg capsule 0.8 mg PO QPM 05/16/19 11/28/24 Unknown turmeric root extract 500 mg 500 mg PO QPM 05/16/19 11/28/24 Unknown capsule acetaminophen 500 mg tablet 500 mg PO Q6H #60 tabs 05/30/19 11/28/24 Unknown (Tylenol Extra Strength) aspirin 325 mg tablet,delayed 325 mg PO DAILY #28 tabs 05/30/19 11/28/24 Unknown release ibuprofen 600 mg tablet 600 mg PO Q6H #60 tabs 05/30/19 11/28/24 Unknown levothyroxine 50 mcg tablet 50 mcg PO QAM 05/30/19 11/28/24 05/29/19 07:00 Past Medical History Medical History Arthritis BPH (benign prostatic hyperplasia) Cancer Skin (s/p excision)- ?BCC vs. SCC Diabetes mellitus, type 2 Per records, patient denies GERD (gastroesophageal reflux disease) Controlled Gout Hiatal hernia Hyperlipidemia Hypothyroidism Obesity Sleep apnea CPAP (non-compliant per pt) Past Surgical History Surgical History Fusion of spine (1995) 5-6 pt thinks > Cervical rods (r/t cervical fracture) limited ROM all directions Hemorrhoids Removal History of bowel resection R/t perforation with colostomy > reversal colostomy History of herniorrhaphy Multiple History of left shoulder replacement Left reverse shoulder arthroplasty (05/30/19): "Pt with poor view with MAC 4, easy mask. Short neck. Glidescope #3 used without difficulty" History of repair of rotator cuff Left History of tonsillectomy History of tooth extraction History of total hip arthroplasty R/L History of total knee replacement R/L Hx of colonoscopy Hx of removal of cyst 3 from back area removed in Aug 2024 Social History Smoking Status: Former smoker Do You Dip or Chew Tobacco: No Smoking End Date: 40 yrs ago Hx Alcohol Use: Yes Alcohol type: beer alcohol intake frequency: a few times a week Hx Substance Use: No substance use type: does not use Testing Electrocardiogram Date: 08/15/24 NSR at 86bpm. RBBB. Chest X-Ray Date: 08/15/24 FINDINGS: No lines and tubes are seen. Left shoulder arthroplasty is seen. The cardiomediastinal silhouette is normal. Faint bibasilar airspace opacities are seen. No evidence of pleural effusion or pneumothorax. IMPRESSION: Faint bibasilar airspace opacities which may represent atelectasis, pneumonia, and/or aspiration.
[2024-12-11] MEDS ORDERED: DEXAMETHASONE SOD INJ 4 MG/ML VIAL ONE (08:16)
[2024-12-11] MEDS ORDERED: PROPOFOL IV EMULSION 10 MG/ML 20 ML VIAL IV ONE (08:16)
[2024-12-11] MEDS ORDERED: LIDOCAINE 2% 2 ML VIAL/AMP(20MG/ML) INFIL ONE ×2 (08:16→08:17)
[2024-12-11] MEDS ORDERED: fentaNYL citrate PF 100 MCG/2 ML VIAL ONE (08:16)
[2024-12-11] MEDS ORDERED: ONDANSETRON INJ 2 MG/ML 2 ML VIAL ONE (08:16)
[2024-12-11] MEDS ORDERED: ROCURONIUM BROMIDE 10 MG/ML 5 ML VIAL IV ONE ×2 (08:17)
[2024-12-11 08:28] LABS: Basophils # (auto) 0.04 K/uL (0.00-0.20); Basophils % (auto) 0.7 %; Eosinophils # (auto) 0.16 K/uL (0.00-0.50); Eosinophils % (auto) 2.7 %; Hematocrit (blood only) 46.1 % (42.0-52.0); Hemoglobin 15.5 g/dl (14.0-18.0); Immature Granulocytes # (auto) 0.06 K/uL (0.01-0.20); Lymphocytes # (auto) 1.11 K/uL (1.20-3.40); Lymphocytes % (auto) 18.5 %; Mean Corpuscular Hemoglobin 32.3 pg (25.0-34.0); Mean Corpuscular Hgb Conc 33.6 g/dL (32.0-36.0); Mean Platelet Volume 9.5 fL (9.4-12.4); Monocytes # (auto) 0.48 K/uL (0.11-0.59); Neutrophils # (auto) 4.14 K/uL (1.40-6.50); Neutrophils % (auto) 69.1 %; Platelet Count 208 K/uL (130-400); RDW Coefficient of Variation 12.8 % (11.5-14.5); RDW Standard Deviation 45.5 fL (36.4-46.3); White Blood Count 5.99 K/ul (4.8-10.8)
[2024-12-11] MEDS: CeleBREX 200 MG CAP PO SCH (08:37)
[2024-12-11] MEDS: ACETAMINOPHEN 500 MG TAB PO SCH (08:37)
[2024-12-11] MEDS: GABAPENTIN 300 MG CAP PO SCH (08:37)
[2024-12-11 08:46] LABS: BUN Creatinine Ratio 11.4 (10-20); Calcium 9.3 mg/dl (8.6-10.3); Creatinine Clr Calc Pharmacy 54.9 ml/min; Potassium 4.4 mmol/L (3.5-5.1)
[2024-12-11] MEDS: LR 60ML/HR IV SCH (09:21)
[2024-12-11] MEDS: LR 15ML/HR IV SCH (09:21)
--- NOTE | 2024-12-11 09:25 | History & Physical Bridge Note ---
Date of Service December 11, 2024 History & Physical Bridge Note I have examined the patient, reviewed the History & Physical and in the interval since the performance of the History & Physical I have noted the following changes of clinical significance: no changes noted
--- NOTE | 2024-12-11 09:26 | History & Physical Report ---
Date of Service December 11, 2024 Assessment & Plan (1) Lumbosacral spondylosis with radiculopathy: Plan: L4-L5 decompression and fusion History of Present Illness Chief Complaint: Back and leg pain Primary Care Provider: NO PCP This is a 79-year-old male who presents with: Persistent back and leg pain after failing course of nonoperative care is here for surgical invention. Allergies Allergy/AdvReac Type Severity Reaction Status Date / Time adhesive tape Allergy Unknown Skin Verified 12/11/24 08:31 irritation Home Medications Medication Instructions Recorded Confirmed Type allopurinol 100 mg tablet 100 mg PO QPM 05/16/19 12/11/24 History coQ10 (ubiquinol) 100 mg capsule 100 mg PO QPM 05/16/19 12/11/24 History omeprazole 20 mg capsule,delayed 20 mg PO HS 05/16/19 12/11/24 History release sertraline 100 mg tablet 100 mg PO QPM 05/16/19 12/11/24 History simvastatin 20 mg tablet 20 mg PO HS 05/16/19 12/11/24 History tamsulosin 0.4 mg capsule 0.8 mg PO QPM 05/16/19 12/11/24 History turmeric root extract 500 mg 500 mg PO QPM 05/16/19 12/11/24 History capsule acetaminophen 500 mg tablet 500 mg PO Q6H #60 tabs 05/30/19 12/11/24 Rx (Tylenol Extra Strength) aspirin 325 mg tablet,delayed 325 mg PO DAILY #28 tabs 05/30/19 12/11/24 Rx release ibuprofen 600 mg tablet 600 mg PO Q6H #60 tabs 05/30/19 12/11/24 Rx levothyroxine 50 mcg tablet 50 mcg PO QAM 05/30/19 12/11/24 History Past Med/Surg History Problem List (Updated 12/11/24 @ 09:25 by Karan Claros DO) Lumbosacral spondylosis with radiculopathy Encounter for pre-operative examination Medical History Arthritis BPH (benign prostatic hyperplasia) Cancer Skin (s/p excision)- ?BCC vs. SCC Diabetes mellitus, type 2 Per records, patient denies GERD (gastroesophageal reflux disease) Controlled Gout Hiatal hernia Hyperlipidemia Hypothyroidism Obesity Sleep apnea CPAP (non-compliant per pt) Surgical History Fusion of spine (1995) 5-6 pt thinks > Cervical rods (r/t cervical fracture) limited ROM all directions Hemorrhoids Removal History of bowel resection R/t perforation with colostomy > reversal colostomy History of herniorrhaphy Multiple History of left shoulder replacement Left reverse shoulder arthroplasty (05/30/19): "Pt with poor view with MAC 4, easy mask. Short neck. Glidescope #3 used without difficulty" History of repair of rotator cuff Left History of tonsillectomy History of tooth extraction History of total hip arthroplasty R/L History of total knee replacement R/L Hx of colonoscopy Hx of removal of cyst 3 from back area removed in Aug 2024 Social History Smoking Status: Former smoker Tobacco Type: Cigarettes Smoking End Date: 40 yrs ago; Second Hand Exposure: No; Do You Dip or Chew Tobacco: No; Tobacco Cessation Education Requested by Patient: No Hx Alcohol Use: Yes Alcohol type: beer Hx Substance Use: No Preferred Language: Pashto Communication Ability: Effective Automation Mechanic Required: No Beliefs That Will Affect Care: None marital status: Current Living Situation: Spouse Other Information That Helps Us Care for You: No Feels Safe at Home: Yes Safety Concerns: Feels Safe At This Time Assistive Devices: Cane, CPAP, Denture - Upper, Glasses and Walker Physical Exam Physical Exam: Patient is alert and oriented Heart regular rhythm lungs clear Results & Data Results & Data Vital Signs (Past 12 Hours) Vital Signs Temp Pulse Resp BP Pulse Ox O2 Del Method 12/11/24 08:21 36.4 C L 76 17 148/85 H 97 Room Air
[2024-12-11] MEDS ORDERED: ONDANSETRON INJ 2 MG/ML 2 ML VIAL IV PRN ×2 (09:39→13:22)
[2024-12-11] MEDS ORDERED: ePHEDrine sulfate 50 MG/ML AMP IV PRN (09:39)
[2024-12-11] MEDS ORDERED: ATROPINE SULFATE 0.1 MG/ML 10ML SYR IV PRN (09:39)
[2024-12-11] MEDS ORDERED: HYDROmorphone INJ 1 MG/ML SYRINGE IV PRN ×2 (09:39→13:22)
[2024-12-11] MEDS ORDERED: HYDROmorphone INJ 2 MG/ML SYR/VIAL IV PRN (09:39)
[2024-12-11] MEDS: ceFAZolin 2000MG 2,000 MG/15 ML SYR IV SCH ×2 (09:56→17:28)
[2024-12-11] MEDS ORDERED: SUGAMMADEX SODIUM 200 MG/2 ML VIAL IV ONE (10:24)
[2024-12-11] MEDS ORDERED: PHENYLEPHRINE 100MCG/ML 5ML SYR ONE ×2 (10:24)
[2024-12-11] MEDS: ceFAZolin 330 MG/ML 1 GM VIAL ONE (10:35)
[2024-12-11] MEDS: BUPIVACAINE/EPINEPHRINE 0.25% 1:200,000 30 ML VIAL ONE (10:35)
[2024-12-11] MEDS: SURGICEL ABSORB HEMOSTAT 2IN X 14IN TOP ONE (10:36)
[2024-12-11] MEDS ORDERED: PHENYLEPHRINE HCL 10 MG/ML VIAL ONE ×2 (11:04)
[2024-12-11] MEDS: FLOSEAL HEMOSTATIC MATRIX 10ML TOP ONE (11:44)
[2024-12-11] MEDS ORDERED: ALBUMIN HUMAN 5% 12.5 GM/250 ML VIAL IV ONE (11:45)
--- NOTE | 2024-12-11 11:52 | Operative Report ---
Post Operative Report Pre & Post Diagnosis Operation Date: 12/11/24 09:35 Pre-Op Diagnosis: #1 lumbar spondylosis with radiculopathy #2 lumbar spinal stenosis Post-Op Diagnosis: Same I identified the patient and participated in the time-out.: Yes Procedure Operation Date: 12/11/24 09:35 Actual Procedures #1 lumbar decompression with bilateral medial facetectomies and foraminotomies L3-L4 L4-L5 #2 excision of extradural mass L4-L5 on the left. #3 posterior spinal fusion L4-L5 #4 placement posterior instrumentation L4-5 using camber. #5 interbody fusion L4-5. #6 placement of Spira 13 x 26 mm x 2 at L4-5. #7 placement infuse collagen sponge, with Koros in the posterior lateral gutters. #8 application of versa wrap over the exposed dura. Surgeon Karan Claros, DO Barrel Lathe Operator Inside Ludmila Arreola Estimated Blood Loss 600 Findings See Below The patient is 5 foot 10 weighing over 115 kg with a BMI of 36. This combined with an EBL created significant technical difficulty with positioning exposure and the procedure itself. This had at least 50% increased operative time. I am recommending a modifier 22. Specimens None Indications This is a 79-year-old male presents above-mentioned diagnosis after failing course of nonoperative care is here for surgical intervention. Description of Procedure Patient was met with identified informed consent obtained. Patient was then taken to the operative suite underwent intubation placed in a prone position on the Usman table top of the Ehsan frame. All bony prominences well-padded eyes inspected to ensure no external precipice upon the. This point the lumbar spine was prepped and draped in a normal sterile fashion. Sharp dissection with the assistance of Bovie cautery was performed down to and exposing the lamina and transverse processes of L4-L5. From caudal to cephalad fashion complete laminectomy of L4 was performed including bilateral medial facetectomies and foraminotomies addressing severe neural compression. This included removal of extradural mass facet cyst on the left adhered to the dura itself. I then performed a partial laminectomy of L3 with bilateral medial facetectomies to address all subarticular stenosis. Pedicle screws were then placed in L4-L5 bilaterally with assistance of fluoroscopy the process javon placed. By way of a transforaminal approach on the right discectomy of L4-L5 was performed endplates corrected to subcortical bleeding bone and a 13 x 26 mm spiral cage filled with os design bone graft after position. Then proceeded to the left transforaminal region at L4-5. Again discectomy performed. Endplates guided to subcortical bleeding bone and a second 13 x 26 mm spiral cage filled with os design bone graft tapped in position. The rods were then compressed locked in final position bilaterally. The transverse processes of L4-L5 burred to subcortical bleeding bone. Infuse collagen sponge, with Koros was placed in the posterior gutters. Versa wrap placed over the exposed dura. 15 round ERON drain inserted. The incision was then closed with 1 Vicryl the fascia 2-0 Vicryl subcutaneously and 4 Monocryl for final skin closure. Steri-Strips sterile dressing placed. Patient waken taken the PACU stable condition. Please note Ludmila Arreola was present at the entire procedure by the patient positioning complex portion of the surgery and final skin closure. Im ordering 10 grams of Collagen Powder (HCPCS A6010 Primary Dressing) and 10 bordered super absorbent (HCPCS A6196 Secondary Dressing) to treat an incision wound that was caused by a spine procedure. The incision is approximately 2 cm(W) x 2 cm(L) down to the spinal column and epidural space 2 cm (D) in size and is a full thickness wound showing no signs of infection. Collagen comes in 1 gram packets so 10 packets were ordered. Given the size of the wound, with moderate exudate I chose to order a 10 day supply. The patient will be provided instructions for proper application of the collagen wound kit. The patient will be asked to apply the collagen powder daily and then cover it with sterile dressings dispensed. Collagen was selected as I expect the collagen to attract monocytes and fibroblasts, act as a sacrificial substrate for MMPs, and ultimately proved a matrix for tissue and vessel growth. The collagen will act as a primary dressing in this scenario. It is medically necessary for proper healing of these wounds to improve bioavailability and contact with each wound surface, this is also to help prevent infection of wounds and promote healing ultimately leading to a better healing outcome and limit the risk of infection. I attest to the content of the Intraoperative Record and any orders documented therein. Any exceptions are noted below.
--- NOTE | 2024-12-11 12:01 | Fluoroscopy Report ---
FL lumbar spine 2-3V CLINICAL HISTORY: L4-L5 DECOMPRESSION AND FUSION COMPARISON STUDY: None pertinent FLUOROSCOPY TIME: 19.9 seconds FLUOROSCOPY IMAGES: 2 EXPOSURE DOSE: 18.50 mGy FINDINGS: Fluoroscopy provided for localization. IMPRESSION: Please refer to the procedure report for evaluation based upon real time fluoroscopic obs ervation [place] 112: Negative or not required by law. Electronically signed by: Kesha Tejeda M.D. 12/11/2024 11:59 AM
[2024-12-11] MEDS: fentaNYL citrate PF 100 MCG/2 ML VIAL IV PRN (12:12)
--- NOTE | 2024-12-11 12:45 | Anesthesiology Progress Note ---
Date of Service December 11, 2024 Anesthesia Post Procedure Vital Signs Vital Signs: Temp Pulse Pulse Resp BP Pulse Ox O2 Del Method 12/11/24 12:35 84 14 108/62 97 Nasal Cannula 12/11/24 12:25 83 13 122/61 98 Nasal Cannula 12/11/24 12:15 82 15 129/69 98 Oxymask 12/11/24 12:09 36.0 C L 86 23 130/64 96 Oxymask 12/11/24 08:21 36.4 C L 76 17 148/85 H 97 Room Air O2 Flow Rate 12/11/24 12:35 3 12/11/24 12:25 4 12/11/24 12:15 4 12/11/24 12:09 6 12/11/24 08:21 Pain Intensity Back: Pain Intensity: 4 Transfer of Care Handoff Completed per policy Notes Mental Status: alert / awake / arousable Patient Amnestic to Procedure: Yes Nausea / Vomiting: adequately controlled Pain: adequately controlled Airway Patency, RR, SpO2: stable & adequate BP & HR: stable & adequate Hydration State: stable & adequate Anesthetic Complications: no major complications apparent
[2024-12-11] MEDS ORDERED: LORazepam 0.5 MG TAB PO PRN (13:22)
[2024-12-11] MEDS ORDERED: ONDANSETRON 4 MG OD TAB PO PRN (13:22)
[2024-12-11] MEDS ORDERED: PROMETHAZINE 12.5 MG/50.5 ML BAG IV PRN (13:22)
[2024-12-11] MEDS ORDERED: oxyCODONE HCL IR 5 MG TAB (IMMEDIATE RELEASE) PO PRN (13:22)
[2024-12-11] MEDS ORDERED: MAGNESIUM HYDROXIDE SUSP 30 ML UDC PO PRN (13:22)
[2024-12-11] MEDS ORDERED: METOCLOPRAMIDE HCL INJ 5 MG/ML 2 ML VIAL IV PRN (13:22)
[2024-12-11] MEDS ORDERED: hydrOXYzine HCl 25 MG TAB PO PRN (13:22)
[2024-12-11] MEDS ORDERED: SOD PHOSPHATE/SOD BIPHOSPHATE ENEMA 132 ML BTL PR PRN (13:22)
[2024-12-11] MEDS ORDERED: ACETAMINOPHEN 1,000 MG/100 ML VIAL IV PRN (13:22)
[2024-12-11] MEDS ORDERED: HYDROmorphone INJ 0.5 MG/0.5 ML SYR IV PRN (13:22)
[2024-12-11] MEDS ORDERED: traMADol HCL 50 MG TABLET PO PRN (13:22)
[2024-12-11] MEDS ORDERED: ACETAMINOPHEN 500 MG TAB PO PRN (13:22)
[2024-12-11] MEDS ORDERED: bisacodyL 10 MG SUPP PR PRN (13:22)
[2024-12-11] MEDS ORDERED: NALOXONE HCL 0.4 MG/1 ML VIAL/CARP IV PRN (13:22)
[2024-12-11] MEDS ORDERED: DO NOT ADMINISTER FLU VACCINE PRN (13:22)
[2024-12-11] MEDS ORDERED: DO NOT ADMINISTER PNEUMOCOCCAL VACCINE PRN (13:22)
[2024-12-11] MEDS ORDERED: LORazepam 2 MG/1 ML VIAL IV PRN (13:22)
[2024-12-11] MEDS ORDERED: ALUMINUM/MAGNESIUM SUSP 30 ML UDC PO PRN (13:22)
[2024-12-11] MEDS ORDERED: FAMOTIDINE 20 MG TAB PO PRN (13:22)
[2024-12-11] MEDS ORDERED: diphenhydrAMINE Capsule 25 MG CAP PO PRN (13:22)
--- NOTE | 2024-12-11 13:46 | Consultation ---
Date of Consultation December 11, 2024 Assessment & Plan (1) S/P spinal surgery: (2) Lumbosacral spondylosis with radiculopathy: Post op day# 0 S/P s/p decompression L3-L5, excision of extradural mass L4-L5 on the left, and posterior spinal fusion L4-L5 by Dr Hyacinth SEPULVEDA#600ml Pain management per ortho Wound management per ortho PT/OT as appropriate DVT prophylaxis per ortho Incentive spirometry Monitor H&H for acute blood loss anemia, pre-op Hgb: 15 Having some extremity tremor. Labs from this am unremarkable without significant electrolyte abnormality. Monitor. (3) Prediabetes: A1c: 6.0 on 08/15/24 Diet controlled Novolog sliding scale correction per protocol (4) Hypothyroidism: Continue home levothyroxine (5) CKD (chronic kidney disease), stage III: Cr: 1.4. At baseline Monitor renal functions. Avoid nephrotoxic agents when possible. (6) Hyperlipidemia: Continue simvastatin (7) GERD (gastroesophageal reflux disease): Continue PPI (8) BPH (benign prostatic hyperplasia): Continue tamsulosin (9) Gout: Continue allopurinol (10) Sleep apnea: CPAP HS DVT Prophylaxis SCDs Disposition per primary service Follows with Laya Bergman PA-C, [facility] for routine care Pt was seen and care coordinated with Dr Chiu. See addendum Thank you for this consultation. We will follow the patient with you during their hospital stay. You can reach a [facility] via [facility] Supervising Physician Co-Signing Physician Notes Patient is a 79-year-old male with history of hypothyroidism, gout, prediabetes, mood disorder, ANGELA and other medical problems was consulted for postop medical management. Patient is doing well postoperatively. He denies any significant pain at surgical site. He also denies any chest pain, dyspnea, dizziness, focal weakness. He admits to have some involuntary leg tremors postoperatively. Please review HPI for complete details of presentation. I personally reviewed blood work and imaging studies. Physical Exam: Vitals signs as noted above General Appearance: Obese, no apparent distress Head: normocephalic, Atraumatic Eyes: normal inspection, EOMI Neck: supple, Trachea midline Respiratory/Chest: Normal breath sounds, CTA, No accessory muscle use Cardiovascular: S1, S2, No murmur Abdomen/GI:Soft, Non tender, Bowel sounds present Back: Surgical site in dressing, drain Extremities/Musculoskeletal:normal inspection, no edema Neurologic/Psych:AAOX3, grossly no focal neurological deficits ,+ involuntary tremor Skin: normal color, warm S/P Lumbar spondylosis with radiculopathy and lumbar spinal stenosis S/P lumbar decompression, fusion surgery by Dr. 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 I have reviewed the advanced practitioner's documentation on the date of service referred in note and agree with plan. Patient's care is coordinated with Mile Mtz PA-C. Please refer to the documentation above for details of patient's presentation and for discussion of other issues. I spent a total [id number] coordinating, documenting, and providing care for this patient excluding time spent in the performance of separately billed services or time spent by another provider/QHP. History of Present Illness Requesting Physician: Dr Claros Reason for Consultation: Post op medical management Attending Physician: Karan Claros, DO History of Present Illness Patient is 79 year old male with PMH HLD, prediabetes, BPH, hypothyroidism, gout, GERD, ANGELA, seen in medical consultation s/p decompression L3-L5, excision of extradural mass L4-L5 on the left, and posterior spinal fusion L4-L5 today by Dr Claros. Post op patient reports not having pain currently. Reports some intermittent LLE shaking that he has noticed post op. Denies extremity pain or paresthesias. Last BM was yesterday. Hasn't urinated yet post op. Denies fever/chills, N/V/D, INGRAM, dizziness, CP, SOB, cough, abdominal pain, extremity edema, rashes, urinary symptoms. Allergies Allergy/AdvReac Type Severity Reaction Status Date / Time adhesive tape Allergy Unknown Skin Verified 12/11/24 08:31 irritation Home Medications Medication Instructions Recorded Confirmed Type allopurinol 100 mg tablet 100 mg PO QPM 05/16/19 12/11/24 History coQ10 (ubiquinol) 100 mg capsule 100 mg PO QPM 05/16/19 12/11/24 History omeprazole 20 mg capsule,delayed 20 mg PO HS 05/16/19 12/11/24 History release sertraline 100 mg tablet 100 mg PO QPM 05/16/19 12/11/24 History simvastatin 20 mg tablet 20 mg PO HS 05/16/19 12/11/24 History tamsulosin 0.4 mg capsule 0.8 mg PO QPM 05/16/19 12/11/24 History turmeric root extract 500 mg 500 mg PO QPM 05/16/19 12/11/24 History capsule acetaminophen 500 mg tablet 500 mg PO Q6H #60 tabs 05/30/19 12/11/24 Rx (Tylenol Extra Strength) aspirin 325 mg tablet,delayed 325 mg PO DAILY #28 tabs 05/30/19 12/11/24 Rx release ibuprofen 600 mg tablet 600 mg PO Q6H #60 tabs 05/30/19 12/11/24 Rx levothyroxine 25 mcg tablet 25 mcg PO DAILY 12/11/24 12/11/24 History oxycodone 5 mg tablet 5 mg PO Q6H PRN pain #30 tabs 12/11/24 Rx tramadol 50 mg tablet 50 mg PO Q6H PRN pain, moderate 12/11/24 Rx #30 tabs Patient History Medical History Hypothyroidism Gout Obesity Arthritis BPH (benign prostatic hyperplasia) Hiatal hernia GERD (gastroesophageal reflux disease) Controlled Diabetes mellitus, type 2 Per records, patient denies Cancer Skin (s/p excision)- ?BCC vs. SCC Sleep apnea CPAP (non-compliant per pt) Hyperlipidemia Surgical History History of tooth extraction Hx of removal of cyst 3 from back area removed in Aug 2024 History of left shoulder replacement Left reverse shoulder arthroplasty (05/30/19): "Pt with poor view with MAC 4, easy mask. Short neck. Glidescope #3 used without difficulty" Hx of colonoscopy History of repair of rotator cuff Left History of total knee replacement R/L History of total hip arthroplasty R/L Hemorrhoids Removal History of herniorrhaphy Multiple History of tonsillectomy Fusion of spine (1995) 5-6 pt thinks > Cervical rods (r/t cervical fracture) limited ROM all directions History of bowel resection R/t perforation with colostomy > reversal colostomy Social History Smoking Status: Former smoker Tobacco Type: Cigarettes Smoking End Date: 40 yrs ago; Second Hand Exposure: No; Do You Dip or Chew Tobacco: No; Tobacco Cessation Education Requested by Patient: No Hx Alcohol Use: Yes Alcohol type: beer Hx Substance Use: No Preferred Language: Maldivian Communication Ability: Effective Triage Register Nurse Required: No Beliefs That Will Affect Care: None marital status: Current Living Situation: Spouse Other Information That Helps Us Care for You: No Feels Safe at Home: Yes Safety Concerns: Feels Safe At This Time Assistive Devices: Cane, CPAP, Denture - Upper, Glasses and Walker Review of Systems Review of Systems: All systems reviewed & are unremarkable except as noted in HPI & below Physical Exam Physical Exam: General: no distress, overweight elderly male Head: normocephalic, atraumatic Eyes: conjunctiva non-injected, anicteric ENT: normal inspection external ears, nose, mucous membranes moist Neck: supple, trachea midline Lungs: clear, no respiratory distress, no wheezing/rhonchi/rales CV: RRR, no murmur, no pretibial edema Abd: normal BS, soft, non-tender Back: +ERON drain in place with serosanguineous drainage Ext: no cyanosis, no calf tenderness, bilateral pedal pushes and pulls intact, sensation to light touch intact. +noted tremor of LLE Neuro: A&O x 3, no focal deficits noted, normal affect Skin: warm, dry Results & Data Vital Signs (Past 12 Hours) Vital Signs Temp Pulse Pulse Resp BP Pulse Ox O2 Del Method 12/11/24 13:22 36.2 C L 87 18 114/66 94 Room Air 12/11/24 13:00 86 19 123/68 96 Nasal Cannula 12/11/24 12:45 36.4 C L 86 14 113/66 97 Nasal Cannula 12/11/24 12:35 84 14 108/62 97 Nasal Cannula 12/11/24 12:25 83 13 122/61 98 Nasal Cannula 12/11/24 12:15 82 15 129/69 98 Oxymask 12/11/24 12:09 36.0 C L 86 23 130/64 96 Oxymask 12/11/24 08:21 36.4 C L 76 17 148/85 H 97 Room Air O2 Flow Rate 12/11/24 13:22 2 12/11/24 13:00 2 12/11/24 12:45 2 12/11/24 12:35 3 12/11/24 12:25 4 12/11/24 12:15 4 12/11/24 12:09 6 12/11/24 08:21 Laboratory Results Short CBC 12/11/24 Range/Units 08:09 WBC 5.99 (4.8-10.8) K/ul Hgb 15.5 (14.0-18.0) g/dl Hct 46.1 (42.0-52.0) % Plt Count 208 (130-400) K/uL BMP 12/11/24 08:09 Sodium 141 Potassium 4.4 Chloride 105 Carbon Dioxide 32 BUN 16 Creatinine 1.40 Glucose 111 H Calcium 9.3
[2024-12-11] MEDS ORDERED: GLUCOSE 10 TAB/TUBE PO PRN (14:21)
[2024-12-11] MEDS ORDERED: GLUCOSE 40% GEL 15 GM TUBE PO PRN (14:21)
[2024-12-11] MEDS ORDERED: CARBOHYDRATES FOR HYPOGLYCEMIA PO PRN (14:21)
[2024-12-11] MEDS ORDERED: GLUCAGON FOR INJ 1 MG VIAL SQ PRN (14:21)
[2024-12-11] MEDS ORDERED: DEXTROSE 50% 50 ML SYRINGE IV PRN (14:21)
[2024-12-11] MEDS: INSULIN ASPART PER UNIT CHARGE SC SCH (17:26)
[2024-12-11 17:41] LABS: Hematocrit (blood only) 41.9 % (42.0-52.0); Hemoglobin 13.9 g/dl (14.0-18.0)
[2024-12-11] MEDS ORDERED: NON-FORMULARY MEDICATION (Coq10 (Ubiquinol) 100 mg Capsule) PO SCH (21:00)
[2024-12-11] MEDS: SERTRALINE HCL 100 MG TABLET PO SCH (21:09)
[2024-12-11] MEDS: TAMSULOSIN HCL 0.4 MG CAP PO SCH (21:09)
[2024-12-11] MEDS: SIMVASTATIN 20 MG TAB PO SCH (21:09)
[2024-12-11] MEDS: allopurinoL 100 MG TAB PO SCH (21:09)
[2024-12-11] MEDS: PANTOprazole 40 MG TAB PO SCH (21:09)
[2024-12-11] MEDS: DOCUSATE SODIUM/SENNA 50/8.6MG TAB PO SCH (21:09)
[2024-12-12] MEDS: LEVOTHYROXINE SODIUM 25 MCG TABLET PO SCH (06:04)
[2024-12-12] MEDS: POLYETHYLENE (MIRALAX) 17 GM PACK PO SCH (06:12)
[2024-12-12] MEDS ORDERED: LEVOTHYROXINE SODIUM 50 MCG TABLET PO SCH (06:30)
--- NOTE | 2024-12-12 07:08 | Hospitalist Progress Note ---
Date of Service December 12, 2024 Assessment & Plan (1) Lumbosacral spondylosis with radiculopathy: (2) S/P spinal surgery: Plan: Esvin Potter is a 79y/o M with PMHx significant for hypothyroidism, CKD stage III, gout, prediabetes, mood disorder, BPH with LUTS, chronic anemia, prediabetes, GERD, gait ataxia, bilateral hearing loss, multiple thyroid nodules, ANGELA on CPAP HS, vitamin D deficiency and vitamin B12 deficiency who is being seen in consultation for routine postoperative medical management after undergoing elective L3-L5 decompression and fusion and excision of L4-L5 extradural mass on the left performed by Dr. Claros on 12/11/24. Per ortho for pain control, wound care, anticoagulation and activities. Continue incentive spirometry, PT/OT when appropriate as per ortho team. Was having postoperative BLE tremors last evening. These have resolved. Suspect spinal segmental myoclonus. (3) Acute blood loss anemia: Plan: Preoperative Hgb 15.5; Hgb downtrended to 12.5 this morning ISO expected surgical loss (EBL = 600mL). Dilutional component contributing as well. No indication to transfuse at this time as Hgb >7. Continue daily H/H monitoring. (4) Prediabetes: Plan: Hgb A1c 6% in August 2024. Diet-controlled. SSI per protocol. BSG checks ACHS. (5) Hypothyroidism: Plan: Continue levothyroxine. (6) CKD (chronic kidney disease), stage III: Plan: Cr remains stable at baseline. Continue to monitor renal function with daily BMP. Avoid nephrotoxic agents when able. Renally dose medications when able. Other Chronic Medical Conditions: HLD/GERD/BPH/Gout - Continue medications for these specific conditions. ANGELA - Continue CPAP HS. DVT Prophylaxis: SCDs/TEDs as per primary service. Code Status: FULL CODE PCP: Breonna Bergman PA-C [[facility]] Disposition: Discharge planning as per primary service. We will follow the patient with you during their hospital stay. You can reach a member of the [facility]ist Team 06/03 via [employer]. Patient seen in collaboration with Dr. Escamilla. Please see addendum. I spent a total of 38 minutes coordinating, documenting, and providing care for this patient excluding time spent in the performance of separately billed services or time spent by another provider/QHP. This included personally reviewing all current laboratories and imaging studies, medical reconciliation, outpatient chart review and discussion with specialists. This chart was completed in part utilizing Speech Voice Recognition Software. Grammatical errors, random word insertions, pronoun errors, and incomplete sentences are an occasional consequence of this system due to software limitations, ambient noise, and hardware issues. Any formal questions or concerns about the content, text, or information contained within the body of this dictation should be directly addressed to the provider for clarification. Admission and Anticipated Discharge Date Admission Date: December 11, 2024 Supervising Physician Co-Signing Physician Notes Attending Addendum: Case reviewed with the advanced practitioner. I have personally seen and examined patient at bedside I have reviewed the advanced practitioner's documentation on the date of service referenced in note, and I agree with, and take responsibility for the plan of care. please refer to her notes for full details patient seen and examined, records reviewed by myself as well all labs, imaging noted and reviewed ASSESSMENT AND PLAN diagnoses and plan of care as per advanced practitioner's notes I spent a total of 35 minutes coordinating, documenting, and providing care for this patient, excluding time spent in the performance of separately billed services or time spent by another provider/QHP. Vinh Escamilla MD Subjective Patient seen and examined in room E316-1. NAEO. Sitting up in chair at bedside. Endorses minimal back pain at this time. Slept fine overnight. Denies any N/V, abdominal pain, SOB or chest pain. No BM yet postoperatively however he is passing gas. Review of Systems Review of Systems: At least ten systems reviewed and negative, except as noted in the subjective section. Physical Exam Physical Exam: General: Elderly, M. NAD. Sitting up in chair at bedside eating lunch. A&Ox4. No overt focal deficits HEENT: Normocephalic, atraumatic. Conjunctivae normal. External ear and nose normal, oropharynx normal. Respiratory: Normal respiratory effort. Lungs clear to auscultation bilaterally. No accessory muscle use. Cardiovascular: Regular rate and rhythm, normal peripheral pulses. No BLE edema. Abdomen/GI: Active bowel sounds, soft, nondistended, nontender to palpation in all quadrants. Extremities/MSK: Surgical dressing on back C/D/I. ERON drain x 1 intact and draining serosanguineous output. Actively moving all extremities without issue. + pain and discomfort when leaning forward to auscultate lung sounds. BLE neurovascularly intact. Results & Data Results & Data Vital Signs (Past 12 Hours) Vital Signs Temp Pulse Resp BP Pulse Ox O2 Del Method O2 Flow Rate 12/12/24 03:27 36.8 C 99 H 16 125/77 98 Nasal Cannula 2 12/11/24 23:20 36.3 C L 96 H 16 99/63 L 98 Nasal Cannula 2 12/11/24 21:10 Room Air 12/11/24 19:28 36.5 C 91 H 16 109/64 97 Nasal Cannula 2 Laboratory Results Short CBC 12/11/24 12/11/24 Range/Units 08:09 17:19 WBC 5.99 (4.8-10.8) K/ul Hgb 15.5 13.9 L (14.0-18.0) g/dl Hct 46.1 41.9 L (42.0-52.0) % Plt Count 208 (130-400) K/uL BMP 12/11/24 08:09 Sodium 141 Potassium 4.4 Chloride 105 Carbon Dioxide 32 BUN 16 Creatinine 1.40 Glucose 111 H Calcium 9.3 (5) Hypothyroidism Hypothyroidism type: unspecified Qualified Code(s): E03.9 - Hypothyroidism, unspecified (6) CKD (chronic kidney disease), stage III Chronic kidney disease stage 3 subtype: unspecified whether 3a or 3b Qualified Code(s): N18.30 - Chronic kidney disease, stage 3 unspecified
[2024-12-12 07:36] LABS: Basophils # (auto) 0.02 K/uL (0.00-0.20); Basophils % (auto) 0.1 %; Hematocrit (blood only) 37.3 % (42.0-52.0); Hemoglobin 12.5 g/dl (14.0-18.0); Immature Granulocytes # (auto) 0.18 K/uL (0.01-0.20); Immature Granulocytes % (auto) 1.2 %; Lymphocytes # (auto) 0.67 K/uL (1.20-3.40); Lymphocytes % (auto) 4.5 %; Mean Corpuscular Hemoglobin 32.1 pg (25.0-34.0); Mean Corpuscular Hgb Conc 33.5 g/dL (32.0-36.0); Mean Corpuscular Volume 95.6 fL (80.0-100.0); Mean Platelet Volume 9.6 fL (9.4-12.4); Monocytes # (auto) 0.89 K/uL (0.11-0.59); Neutrophils # (auto) 13.02 K/uL (1.40-6.50); Neutrophils % (auto) 88.2 %; Platelet Count 208 K/uL (130-400); RDW Coefficient of Variation 12.7 % (11.5-14.5); RDW Standard Deviation 44.5 fL (36.4-46.3); White Blood Count 14.78 K/ul (4.8-10.8)
[2024-12-12 07:56] LABS: BUN Creatinine Ratio 14.7 (10-20); Calcium 8.9 mg/dl (8.6-10.3); Creatinine Clr Calc Pharmacy 66.2 ml/min; Potassium 4.6 mmol/L (3.5-5.1)
[2024-12-12] MEDS: ASPIRIN 325 MG ECTAB PO SCH (08:15)
[2024-12-12] MEDS: dexAMETHasone 6 MG in SYRINGE 0 ML IV SCH (08:15)
--- NOTE | 2024-12-12 08:32 | Orthopedic Progress Note ---
Date of Service December 12, 2024 Assessment & Plan (1) Lumbosacral spondylosis with radiculopathy: Plan: At this time initiate therapy. Assess his progress. Possible candidate for rehab. Admission and Anticipated Discharge Date Admission Date: December 11, 2024 Subjective Pain is controlled leg symptoms improved Physical Exam Physical Exam: Patient is currently in bed. Comfortable. Good strength testing. Results & Data Vital Signs (Past 12 Hours) Vital Signs Temp Pulse Pulse Resp BP Pulse Ox O2 Del Method 12/12/24 07:32 37 C 95 H 18 106/67 96 Room Air 12/12/24 07:15 Nasal Cannula 12/12/24 03:27 36.8 C 99 H 16 125/77 98 Nasal Cannula 12/11/24 23:20 36.3 C L 96 H 16 99/63 L 98 Nasal Cannula 12/11/24 21:10 Room Air O2 Flow Rate 12/12/24 07:32 12/12/24 07:15 12/12/24 03:27 2 12/11/24 23:20 2 12/11/24 21:10 Queries Orthopedic Spine Obesity: Yes
[2024-12-13 06:42] LABS: Hematocrit (blood only) 39.2 % (42.0-52.0); Hemoglobin 13.1 g/dl (14.0-18.0); Mean Corpuscular Hemoglobin 32.5 pg (25.0-34.0); Mean Corpuscular Hgb Conc 33.4 g/dL (32.0-36.0); Mean Corpuscular Volume 97.3 fL (80.0-100.0); Mean Platelet Volume 10.1 fL (9.4-12.4); Platelet Count 237 K/uL (130-400); RDW Coefficient of Variation 12.8 % (11.5-14.5); RDW Standard Deviation 45.8 fL (36.4-46.3); Red Blood Count 4.03 M/uL (4.70-6.10); White Blood Count 10.46 K/ul (4.8-10.8)
[2024-12-13 07:11] LABS: BUN Creatinine Ratio 20.3 (10-20); Calcium 9.1 mg/dl (8.6-10.3); Creatinine Clr Calc Pharmacy 62.5 ml/min; Magnesium 2.3 mg/dl (1.7-2.4); Potassium 4.8 mmol/L (3.5-5.1)
--- NOTE | 2024-12-13 07:34 | Hospitalist Progress Note ---
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 Claros on 12/11/24. Per ortho for pain control, wound care, anticoagulation and activities. Continue incentive spirometry, PT/OT when appropriate as per ortho team. Of note, patient has not required any narcotic pain medications postoperatively. Was having postoperative BLE tremors. These have resolved. Suspect spinal segmental myoclonus. (3) Acute blood loss anemia: Plan: Preoperative Hgb 15.5. Hgb downtrended postoperatively ISO expected surgical loss (EBL = 600mL) but overall remains stable this morning at 13.1; Dilutional component contributing as well. No indication to transfuse at this time as Hgb >7. Continue daily H/H monitoring. (4) Prediabetes: Plan: Hgb A1c 6% in August 2024. Diet-controlled. SSI per protocol. BSG checks ACHS. (5) Hypothyroidism: Plan: Continue levothyroxine. (6) CKD (chronic kidney disease), stage III: Plan: Cr remains stable at baseline. Continue to monitor renal function with daily BMP. Avoid nephrotoxic agents when able. Renally dose medications when able. Other Chronic Medical Conditions: HLD/GERD/BPH/Gout - Continue medications for these specific conditions. ANGELA - Continue CPAP HS. DVT Prophylaxis: SCDs/TEDs as per primary service. Code Status: FULL CODE PCP: Breonna Bergman PA-C [[facility]] Disposition: Discharge planning as per primary service. We will follow the patient with you during their hospital stay. You can reach a member of the [facility] Team 06/03 via [employer]. Patient seen in collaboration with Dr. Escamilla. Please see addendum. I spent a total of 32 minutes coordinating, documenting, and providing care for this patient excluding time spent in the performance of separately billed services or time spent by another provider/QHP. This included personally reviewing all current laboratories and imaging studies, medical reconciliation, outpatient chart review and discussion with specialists. This chart was completed in part utilizing Speech Voice Recognition Software. Grammatical errors, random word insertions, pronoun errors, and incomplete sentences are an occasional consequence of this system due to software limitations, ambient noise, and hardware issues. Any formal questions or concerns about the content, text, or information contained within the body of this dictation should be directly addressed to the provider for clarification. Admission and Anticipated Discharge Date Admission Date: December 11, 2024 Supervising Physician Co-Signing Physician Notes Attending Addendum: Case reviewed with the advanced practitioner. I have personally seen and examined patient at bedside I have reviewed the advanced practitioner's documentation on the date of service referenced in note, and I agree with, and take responsibility for the plan of care. please refer to her notes for full details patient seen and examined, records reviewed by myself as well diagnoses and plan of care as per advanced practitioner's notes I spent a total of 25 minutes coordinating, documenting, and providing care for this patient, excluding time spent in the performance of separately billed services or time spent by another provider/QHP. Vinh Escamilla MD Subjective Patient seen and examined in room E316-1. MIAH. Reports feeling well this afternoon. Was eating lunch when I entered the room. Endorses that his pain is well-controlled. Of note, patient has NOT required the use of any narcotic pain medications. Denies any SOB, chest pain, abdominal pain or N/V. Review of Systems Review of Systems: At least ten systems reviewed and negative, except as noted in the subjective section. Physical Exam Physical Exam: General: Elderly, M. NAD. Sitting up in chair at bedside eating lunch. A&Ox4. No overt focal deficits HEENT: Normocephalic, atraumatic. Conjunctivae normal. External ear and nose normal, oropharynx normal. Respiratory: Normal respiratory effort. Lungs clear to auscultation bilaterally. No accessory muscle use. Cardiovascular: Regular rate and rhythm, normal peripheral pulses. No BLE edema. Abdomen/GI: Active bowel sounds, soft, nondistended, nontender to palpation in all quadrants. Extremities/MSK: Surgical dressing on back C/D/I. ERON drain x 1 intact and draining serosanguineous output. Actively moving all extremities without issue. + pain and discomfort when leaning forward to auscultate lung sounds. BLE neurovascularly intact. Results & Data Results & Data Vital Signs (Past 12 Hours) Vital Signs Temp Pulse Pulse Resp BP Pulse Ox O2 Del Method 12/13/24 07:23 36.7 C 76 16 117/67 94 Room Air 12/12/24 21:10 Room Air 12/12/24 19:50 36.6 C 78 18 147/68 H 95 Room Air Laboratory Results Short CBC 12/13/24 Range/Units 05:55 WBC 10.46 (4.8-10.8) K/ul Hgb 13.1 L (14.0-18.0) g/dl Hct 39.2 L (42.0-52.0) % Plt Count 237 (130-400) K/uL BMP 12/13/24 05:55 Sodium 139 Potassium 4.8 Chloride 103 Carbon Dioxide 29 BUN 25 H Creatinine 1.23 Glucose 123 H Calcium 9.1 (5) Hypothyroidism Hypothyroidism type: unspecified Qualified Code(s): E03.9 - Hypothyroidism, unspecified (6) CKD (chronic kidney disease), stage III Chronic kidney disease stage 3 subtype: unspecified whether 3a or 3b Qualified Code(s): N18.30 - Chronic kidney disease, stage 3 unspecified
--- NOTE | 2024-12-13 10:03 | Orthopedic Progress Note ---
Date of Service December 13, 2024 Assessment & Plan (1) Lumbosacral spondylosis with radiculopathy: Plan: At this time we will continue physical therapy monitor his ERON operatively discharge home tomorrow. Admission and Anticipated Discharge Date Admission Date: December 11, 2024 Subjective Back pain controlled leg pain improved Physical Exam Physical Exam: Patient is in the chair at the bedside. Is constricted testing. Appears comfortable. Results & Data Vital Signs (Past 12 Hours) Vital Signs Temp Pulse Resp BP Pulse Ox O2 Del Method 12/13/24 07:23 36.7 C 76 16 117/67 94 Room Air 12/13/24 07:20 Room Air Queries Orthopedic Spine Obesity: Yes
[2024-12-14 06:59] LABS: Hematocrit (blood only) 37.6 % (42.0-52.0); Hemoglobin 12.8 g/dl (14.0-18.0); Mean Corpuscular Hemoglobin 32.6 pg (25.0-34.0); Mean Corpuscular Volume 95.7 fL (80.0-100.0); Mean Platelet Volume 9.9 fL (9.4-12.4); Platelet Count 224 K/uL (130-400); RDW Coefficient of Variation 12.8 % (11.5-14.5); RDW Standard Deviation 45.1 fL (36.4-46.3); Red Blood Count 3.93 M/uL (4.70-6.10); White Blood Count 6.82 K/ul (4.8-10.8)
[2024-12-14 07:22] LABS: BUN Creatinine Ratio 23.1 (10-20); Calcium 9.3 mg/dl (8.6-10.3); Creatinine Clr Calc Pharmacy 59.1 ml/min; Magnesium 2.2 mg/dl (1.7-2.4); Potassium 4.5 mmol/L (3.5-5.1)
--- NOTE | 2024-12-14 07:43 | Hospitalist Progress Note ---
Date of Service December 14, 2024 Assessment & Plan (1) Lumbosacral spondylosis with radiculopathy: (2) S/P spinal surgery: Plan: Esvin Potter is a 79y/o M with PMHx significant for hypothyroidism, CKD stage III, gout, prediabetes, mood disorder, BPH with LUTS, chronic anemia, prediabetes, GERD, gait ataxia, bilateral hearing loss, multiple thyroid nodules, ANGELA on CPAP HS, vitamin D deficiency and vitamin B12 deficiency who is being seen in consultation for routine postoperative medical management after undergoing elective L3-L5 decompression and fusion and excision of L4-L5 extradural mass on the left performed by Dr. Claros on 12/11/24. Per ortho for pain control, wound care, anticoagulation and activities. Continue incentive spirometry, PT/OT when appropriate as per ortho team. Doing well with pain control On day of procedure had LLE tremor which has resolved and not recurred. Possible spinal segmental myoclonus. Ortho spine plans for discharge home tomorrow (3) Acute blood loss anemia: Plan: EBL#600ml Hgb: 12.8 and stable. Preoperative Hgb 15.5. Having decreased ERON drain output (4) Prediabetes: Plan: Hgb A1c in August 2024. Diet-controlled. SSI per protocol. BSG checks ACHS. (5) Hypothyroidism: Plan: Continue levothyroxine (6) CKD (chronic kidney disease), stage III: Plan: Cr: 1.3. Remains about baseline Monitor renal functions. Avoid nephrotoxic agents when possible. #Hyperlipidemia: Continue simvastatin #GERD Continue PPI #BPH (benign prostatic hyperplasia): Continue tamsulosin #Gout: Continue allopurinol DVT Prophylaxis: SCDs/TEDs as per primary service. Code Status: FULL CODE PCP: Breonna Bergman PA-C [[facility] [place]] Disposition: Discharge planning as per primary service. Planned to be discharged home tomorrow We will follow the patient with you during their hospital stay. [facility] via [employer]. Patient seen in collaboration with Dr. Escamilla. I spent a total of 30 minutes coordinating, documenting, and providing care for this patient excluding time spent in the performance of separately billed services or time spent by another provider/QHP. This included personally reviewing all current laboratories and imaging studies, medical reconciliation, outpatient chart review and discussion with specialists. Admission and Anticipated Discharge Date Admission Date: December 11, 2024 Supervising Physician Co-Signing Physician Notes Attending Addendum: Case reviewed with the advanced practitioner. I have reviewed the advanced practitioner's documentation on the date of service referenced in note, and I agree with, and take responsibility for the plan of care. please refer to her notes for full details patient seen and examined, records reviewed by myself as well diagnoses and plan of care as per advanced practitioner's notes I spent a total of 15 minutes coordinating, documenting, and providing care for this patient, excluding time spent in the performance of separately billed services or time spent by another provider/QHP. Vinh Escamilla MD Subjective Patient seen and examined. Sitting up in bedside chair in room 316-1. Is POD #3 s/p decompression L3-L5, excision of extradural mass L4-L5 on the left, and posterior spinal fusion L4-L5 by Dr Claros. Patient reports is doing well and reports pain controlled. Denies LE paresthesias or pain or weakness. Is eating and drinking without difficulty. Denies fever/chills, diaphoresis, N/V/D/C, INGRAM, dizziness, syncope, CP, SOB, cough, rhinorrhea, abdominal pain, extremity edema, rashes, urinary symptoms. Review of Systems Review of Systems: All systems reviewed & are unremarkable except as noted in HPI & below Physical Exam Physical Exam: General: no distress, obese elderly male Head: normocephalic, atraumatic Eyes: conjunctiva non-injected, anicteric ENT: normal inspection external ears, nose, mucous membranes moist Neck: supple, trachea midline Lungs: clear, no respiratory distress, no wheezing/rhonchi/rales CV: RRR, no murmur, no pretibial edema Abd: normal BS, soft, non-tender Back: surgical dressing in place. prior marked area of drainage is within markings and no signs further drainage. ERON drain in place with small amount of serosanguineous drainage Ext: no cyanosis, no calf tenderness, moves BLE and BUE extremities, sensation to light touch intact Neuro: A&O x 3, no focal deficits noted, normal affect Skin: warm, dry Results & Data Results & Data Vital Signs (Past 12 Hours) Vital Signs Temp Pulse Resp BP BP Pulse Ox O2 Del Method 12/14/24 07:33 36.5 C 72 18 130/76 98 Room Air 12/13/24 20:23 36.6 C 67 18 146/81 H 95 Room Air Laboratory Results Short CBC 12/14/24 Range/Units 06:22 WBC 6.82 (4.8-10.8) K/ul Hgb 12.8 L (14.0-18.0) g/dl Hct 37.6 L (42.0-52.0) % Plt Count 224 (130-400) K/uL BMP 12/14/24 06:22 Sodium 137 Potassium 4.5 Chloride 100 Carbon Dioxide 30 BUN 30 H Creatinine 1.30 Glucose 143 H Calcium 9.3 (5) Hypothyroidism Hypothyroidism type: unspecified Qualified Code(s): E03.9 - Hypothyroidism, unspecified (6) CKD (chronic kidney disease), stage III Chronic kidney disease stage 3 subtype: unspecified whether 3a or 3b Qualified Code(s): N18.30 - Chronic kidney disease, stage 3 unspecified
--- NOTE | 2024-12-14 08:08 | Orthopedic Progress Note ---
Date of Service December 14, 2024 Assessment & Plan (1) Lumbosacral spondylosis with radiculopathy: Plan: Today we will continue physical therapy monitor his ERON output anticipate discharge home tomorrow. Admission and Anticipated Discharge Date Admission Date: December 11, 2024 Subjective Patient's back pain is controlled leg symptoms improved. He is tolerating physical therapy. Physical Exam Physical Exam: On exam he is in the chair at the bedside. Discussed when to testing. Appears comfortable. Results & Data Vital Signs (Past 12 Hours) Vital Signs Temp Pulse Resp BP BP Pulse Ox O2 Del Method 12/14/24 07:33 36.5 C 72 18 130/76 98 Room Air 12/13/24 20:23 36.6 C 67 18 146/81 H 95 Room Air Queries Orthopedic Spine Obesity: Yes
[2024-12-14] MEDS: dexAMETHasone 1 MG TAB PO ONE (09:46)
[2024-12-15 07:00] VITALS: BP 127/74; PULSE 79; RESP 16; TEMP 97.9; O2SAT 96
--- NOTE | 2024-12-15 07:36 | Hospitalist Progress Note ---
Date of Service December 15, 2024 Assessment & Plan (1) Lumbosacral spondylosis with radiculopathy: (2) S/P spinal surgery: Plan: Esvin Potter is a 79y/o M with PMHx significant for hypothyroidism, CKD stage III, gout, prediabetes, mood disorder, BPH with LUTS, chronic anemia, prediabetes, GERD, gait ataxia, bilateral hearing loss, multiple thyroid nodules, ANGELA on CPAP HS, vitamin D deficiency and vitamin B12 deficiency who is being seen in consultation for routine postoperative medical management after undergoing elective L3-L5 decompression and fusion and excision of L4-L5 extradural mass on the left performed by Dr. Claros on 12/11/24. Patient has done well and not required narcotic pain medications post op. Per ortho for wound care and activities. Ortho spine plans for discharge home today. (3) Acute blood loss anemia: Plan: EBL#600ml Yesterday Hgb: 12.8 and stable. Preoperative Hgb 15.5. (4) Prediabetes: Plan: Hgb A1c in August 2024. Diet-controlled (5) Hypothyroidism: Plan: Continue levothyroxine (6) CKD (chronic kidney disease), stage III: Plan: Yesterday Cr: 1.3. Remains about baseline Monitor renal functions. Avoid nephrotoxic agents when possible. #Hyperlipidemia: Continue home simvastatin #GERD Continue PPI #BPH (benign prostatic hyperplasia): Continue tamsulosin #Gout: Continue allopurinol DVT Prophylaxis: SCDs/TEDs as per primary service. Code Status: FULL CODE PCP: Breonna Bergman PA-C [[facility] [place]] Disposition: Discharge home today per primary service, Ortho spine, Dr Claros. I spent a total of 30 minutes coordinating, documenting, and providing care for this patient excluding time spent in the performance of separately billed services or time spent by another provider/QHP. This included personally reviewing all current laboratories and imaging studies, medical reconciliation, outpatient chart review and discussion with specialists. Admission and Anticipated Discharge Date Admission Date: December 11, 2024 Supervising Physician Co-Signing Physician Notes Attending Addendum: Case reviewed with the advanced practitioner. I have reviewed the advanced practitioner's documentation on the date of service referenced in note, and I agree with, and take responsibility for the plan of care. please refer to her notes for full details records reviewed by myself as well patient has already left before I could perform a physical exam diagnoses and plan of care as per advanced practitioner's notes I spent a total of 10 minutes coordinating, documenting, and providing care for this patient, excluding time spent in the performance of separately billed services or time spent by another provider/QHP. Vinh Escamilla MD Subjective Seen and examined in 316-1. Patient sitting in bedside chair. Reports hasn't be en sleeping and feels tired. States back pain is controlled and hasn't required any narcotic pain medications post op. He had been receiving bowel regimen and had loose stool. Recommend can hold on bowel regimen medications at this time. He is eating and drinking well and has been able to ambulate with walker. Denies fever/chills, diaphoresis, N/V/C, INGRAM, dizziness, sCP, SOB, palpitations, cough, abdominal pain, paresthesias, extremity weakness, extremity edema, rashes, urinary symptoms. He is planned for discharge home today by ortho spine. Review of Systems Review of Systems: All systems reviewed & are unremarkable except as noted in HPI & below Physical Exam Physical Exam: General: no distress, obese elderly male Head: normocephalic, atraumatic Eyes: conjunctiva non-injected, anicteric ENT: normal inspection external ears, nose, mucous membranes moist Neck: supple, trachea midline Lungs: clear, no respiratory distress, no wheezing/rhonchi/rales CV: RRR, no murmur, no pretibial edema Abd: normal BS, soft, non-tender Back: surgical dressing in place. prior marked area of drainage is within markings and no signs further drainage. ERON drain in place with small amount of serosanguineous drainage Ext: no cyanosis, no calf tenderness, moves BLE and BUE extremities, sensation to light touch intact Neuro: A&O x 3, no focal deficits noted, normal affect Skin: warm, dry Results & Data Results & Data Vital Signs (Past 12 Hours) Vital Signs Temp Pulse Resp BP Pulse Ox O2 Del Method 12/15/24 06:59 36.6 C 79 16 127/74 96 Room Air 12/14/24 21:26 Room Air (5) Hypothyroidism Hypothyroidism type: unspecified Qualified Code(s): E03.9 - Hypothyroidism, unspecified (6) CKD (chronic kidney disease), stage III Chronic kidney disease stage 3 subtype: unspecified whether 3a or 3b Qualified Code(s): N18.30 - Chronic kidney disease, stage 3 unspecified
--- NOTE | 2024-12-15 08:56 | Discharge Summary ---
Date of Service December 15, 2024 Admission HPI Per Admitting Provider This is a 79-year-old male who presents with: Persistent back and leg pain after failing course of nonoperative care is here for surgical invention. Principal Diagnosis Lumbar spondylosis with radiculopathy Discharge Data Allergies Allergy/AdvReac Type Severity Reaction Status Date / Time adhesive tape Allergy Unknown Skin Verified 12/11/24 08:31 irritation Consultations 12/11/24 13:22 Consult Hospitalist Routine Procedures Performed Operation Date: 12/11/24 09:35 Actual Procedures p L4-L5 Decompression and Fusion(Not Applicable) - Karan Claros DO Ordered Studies 12/11/24 09:35 FL lumbar spine 2-3V Routine Hospital Course (1) Lumbosacral spondylosis with radiculopathy: Patient with lumbar decompression fusion tolerated as well as taken orthopedic postoperative. Postoperatively he progressed appropriate. Marked improvement of his leg symptoms back pain. ERON drain decreasing improving. Extra strength testing. Subsequent discharge home. Discharge orders instructions from the chart for further review. Total Time Total Time Spent Total Time Spent (In Minutes): 20 minutes Discharge Plan Discharge Items Patient Disposition: Home - Self-Care Reason For Visit: Lumbar Spondylosis, Lumbar Disc Disease Discharge Diagnosis: Lumbar spondylosis with radiculopathy Activity: As commented below Non-emergency contact: Primary Care Provider Call non-emergency contact if: you have any medication questions Follow-up/Referrals: PCPBHAVIN [Physician] - Diet: Regular Addtl Attending Provider Instructions: ACTIVITY RECOMMENDATIONS: SELF CARE INSTRUCTIONS AFTER THORACIC/LUMBAR FUSIONS 1. You may walk to your tolerance. It is good exercise for your legs and back. Expect some back and intermittent leg aches and pains. 2. You may perform "counter-top" level activities (make a sandwich, alyssa with a project, etc.). 3. No bending or lifting of more than 10 pounds or back twisting of any nature (roll like a log when turning in bed). 4. You may ride in a car for 20-30 minutes at a time. No driving until after your first visit with your doctor. 5. Frequent changes of position and restricting sitting to 30 minutes at a time will help limit the amount of back spasms and stiffness you may experience. 6. You may discontinue the use of ambulatory aids (cane, crutches, etc.) once your strength and confidence allow. 7. You may railroad inspector the shower and let water strike your incision when you arrive home at least once daily. Do not take a tub bath, sit in a hot tub or go into a swimming pool until after your first recheck in the office. 8. You may resume previous diet. SPECIAL CARE INSTRUCTIONS: VERY IMPORTANT TO READ AND REVIEW A. Your surgical incision has been closed with a cosmetic suture under the skin that will dissolve in about 6 weeks. In 14 days, you can use a pair of clean scissors and cut the suture that is left outside of the skin at the ends of your incision. 1. The small skin tapes can be removed 7 days after surgery if they have not fallen off by that point. 2. You may keep the wound open to air as much as possible to promote healing after post-op day number 5 unless told otherwise by your doctor. 3. If you think the wound looks like it is becoming infected (redness or worsening drainage) and/or you are experiencing fever, chill or worsening back pain and muscle spasms, contact the office so that we may evaluate you as soon as possible. B. Complications are uncommon, but please contact us if you have any signs or symptoms of: 1. wound infection (fever higher than 102.5 degrees F, redness, separation of wound, drainage, or increasing pain from the incision) 2. blood clots in legs (pain, swelling, redness and warmth in legs) 3. urinary tract infection (fever higher than 102.5 degrees F, burning upon urination or increased frequency of urination) 4. nerve problems (inability to walk on your toes or heels, numbness, loss of bowel or bladder control) 5. any other symptoms that concern you C. Please call the office at if you have any concerns or questions about your operation or recovery. D. No smoking! Smoking drastically decreases the chance of a solid fusion. E. Do not take any anti-inflammatory medications (Indocin, Advil, Motrin, Aspirin, Naprosyn, etc.) as these may inhibit the chance of a solid fusion. Tylenol is okay to take for pain. MANAGING PAIN AFTER SPINAL SURGERY 1. Narcotic medication is intended for short-term use and will be provided for surgical pain. Surgical pain usually lasts for a period of 4-6 weeks. Narcotic medication includes Percocet, Vicodin, Darvocet, Tylenol #3 or Lortab. 2. Longer-term pain is more appropriately treated with non-narcotic medication such as Tylenol ES. 3. Muscle spasm is not appropriately treated with narcotics. Muscle relaxers such as Soma, Flexeril or Skelaxin can be used along with Tylenol ES. 4. Remember that we all live with some "aches and pains". This is not unusual or uncommon after an injury or as we get older. a. Back pain is expected and may include muscle spasms for 4 to 6 weeks after surgery. The pain should gradually improve. If the pain worsens for no apparent reason, please contact the office. b. Intermittent leg pain may also be experienced and should not be concerned about unless it worsens for no apparent reason. If so, please contact the office. 5. We will provide appropriate medication within the normal guidelines of their prescribed use. We will also be very cautious and aware of potential abuse and extended duration of patients' medication needs. a. Pain medications are for your comfort and to assist with sleep and rest so that the tissue can heal. They are not provided in order to return to normal activity and should not be used through the day. To do so or worsening pain at night can result from ongoing tissue damage and development of tolerance to the prescribed medicine. 6. Please allow 2-3 days to process refills. Prescriptions will not be mailed but must be picked up at the office. FOLLOW UP VISIT: Keep your scheduled follow-up appointment. Any questions, please call the office at . Pending Studies at Discharge: No Stand-Alone Forms: My [facility], Smoking Cessation Medications and AK Order Prescriptions: New tramadol 50 mg tablet 50 mg PO Q6H PRN (Reason: pain, moderate) Qty: 30 0RF oxycodone 5 mg tablet 5 mg PO Q6H PRN (Reason: pain) Qty: 30 0RF Continued sertraline 100 mg Tablet 100 mg PO QPM allopurinol 100 mg Tablet 100 mg PO QPM tamsulosin 0.4 mg Capsule 0.8 mg PO QPM simvastatin 20 mg Tablet 20 mg PO HS omeprazole 20 mg Capsule,Delayed Release(Dr/Ec) 20 mg PO HS turmeric root extract 500 mg Capsule 500 mg PO QPM coQ10 (ubiquinol) 100 mg Capsule 100 mg PO QPM aspirin 325 mg Tablet,Delayed Release (Dr/Ec) 325 mg PO DAILY Qty: 28 0RF acetaminophen [Tylenol Extra Strength] 500 mg Tablet 500 mg PO Q6H Qty: 60 2RF ibuprofen 600 mg Tablet 600 mg PO Q6H Qty: 60 2RF levothyroxine 25 mcg tablet 25 mcg PO DAILY Discharge Orders: Discharge Order (Routine); Ordered 12/15/24 Ordered By: Karan Claros Admission Data Admit Date/Time: 12/11/24 11:56 Attending Provider: Karan Claros Admit Provider: Karan Claros Primary Care Provider: Laya Bergman Other Providers: Dilcia Ku; Vinh Escamilla
== END 2024-12-15 12:42 | disposition home or self-care (01) | DRG 402 ==
LOC: ASU 08:03 → 3E 11:56

== ENCOUNTER 2024-12-23 09:37 | Inpatient (IN) ==
[2024-12-23] MEDS ORDERED: NALOXONE HCL 0.4 MG/1 ML VIAL/CARP IV PRN (15:15)
[2024-12-23] MEDS ORDERED: LORazepam 0.5 MG TAB PO PRN (15:15)
[2024-12-23] MEDS ORDERED: PROMETHAZINE 12.5 MG/50.5 ML BAG IV PRN (15:15)
[2024-12-23] MEDS ORDERED: LORazepam 2 MG/1 ML VIAL IV PRN (15:15)
[2024-12-23] MEDS ORDERED: traMADol HCL 50 MG TABLET PO PRN (15:15)
[2024-12-23] MEDS ORDERED: ACETAMINOPHEN 500 MG TAB PO PRN (15:15)
[2024-12-23] MEDS ORDERED: METOCLOPRAMIDE HCL INJ 5 MG/ML 2 ML VIAL IV PRN (15:15)
[2024-12-23] MEDS ORDERED: ONDANSETRON INJ 2 MG/ML 2 ML VIAL IV PRN (15:15)
[2024-12-23] MEDS ORDERED: ONDANSETRON 4 MG OD TAB PO PRN (15:15)
--- NOTE | 2024-12-23 15:26 | Hospitalist Consultation ---
Date of Consultation December 23, 2024 Assessment & Plan (1) Bacteremia: (2) Lumbar surgical wound fluid collection: (3) Prediabetes: (4) CKD (chronic kidney disease), stage III: (5) Sleep apnea: (6) BPH (benign prostatic hyperplasia): (7) Hypothyroidism: (8) Gout: Plan This is a 79 y/o male with hypothyroidism, prediabetes, gout, ANGELA, mood disorder and other medical history as outlined below who was transferred from [facility] today with bacteremia and post-operative fluid collection. Today 4/4 blood cultures positive for GPC, pt has been on vancomycin and Zosyn since yesterday. Spoke with Dr. Gonzalez, hospitalist at [facility] to get report. Records from admission there were extensively reviewed. Final identification of organism is still pending. We have been consulted for medical management. Tentative plan for OR tomorrow. #Post-operative fluid collection #Bacteremia - 4/4 positive blood cultures for GPC, final ID pending at [facility] - Continue empiric vancomycin and Zosyn for now - Will need final results from [facility] when available - Repeat blood cultures today, baseline labs including lactate and procal today - Eventual ID consult but will defer until have more specific information on bacteremia available - Procedural management per primary service #Severe back pain due to #1 - Pain control and activity per primary team #Prediabetes - Diabetic diet - Insulin sliding scale #Gout - Chronic, stable - continue allopurinol #ANGELA - does not use CPAP at home but will to use while admitted - CPAP at HS per protocol #CKD3 - baseline creatinine 1.4 - Check labs today and in the AM #Hyperlipidemia - Chronic, stable - continue statin #BPH - having difficulty with urgency, trouble using the urinal with resultant incontinence - Continue tamsulosin - Since tentative plan for OR tomorrow, will place Javier #GERD - Chronic, stable - continue daily PPI #Hypothyroidism - Chronic, stable - continue levothyroxine DVT prophylaxis per ortho - has been receiving subQ heparin at [facility] Pt seen and reviewed with collaborating physician, Dr. Barone. Plan of care discussed and as outlined above. Thank you for this consultation. We will continue to follow this patient with you. A member of the [facility] Hospitalist Team is available 06/03 via the [employer]. Please don't hesitate to reach out with questions. I spent a total of 70 minutes coordinating, documenting, and providing care for this patient excluding time spent in the performance of separately billed services or time spent by another provider/Q. Heydi Smith PA-C Supervising Physician Co-Signing Physician Notes Patient transferred from [facility] Recent lumbar decompression surgery. Presents to [facility] with severe back pain [facility] reported MRI showing fluid collection at surgical site and Blood cultures have GPC in 11/15 bottles Patient currently reports severe low back pain, some constipation On exam, General: Not in distress, obese Eyes: PERRL, conjunctivae normal, not pale, anicteric sclerae, EOM intact bilaterally ENMT: External ear and nose normal, oropharynx normal Respiratory: Normal respiratory effort, no respiratory distress, lungs clear to auscultation, no crackles and no wheezes Cardiovascular: RRR S1 S2 Gastrointestinal (Abdomen): Protuberant abdomen (reports this is normal for him), soft, nontender, normal bowel sounds Musculoskeletal: +pedal edema. Clean dressing/+tenderness over lower back Neurologic: Alert and oriented x 3, No focal weakness, sensation grossly intact Psychiatric: Euthymic affect Post op fluid collection which may be seroma or hematoma Considering reported bacteremia, collection may be abscess Ortho spine planning OR in AM Continue vanc and zosyn for now, get Blood cultures here and follow up Blood cultures here and at [facility]. Can deescalate antibiotics as appropriate once speciation occurs Can get ID once more results are obtained from [facility]. Other plans as detailed by Eloina Smith PA-C I spent a total of 35 minutes coordinating, documenting and providing care for this patient excluding time spent in performance of separately billed services History of Present Illness Reason for Consultation: Medical Management Requesting Physician: Dr. Karan Claros Attending Physician: Karan Claros, History of Present Illness This is a 79 y/o male with hypothyroidism, prediabetes, gout, ANGELA, mood disorder and other medical history as outlined below who was transferred from [facility] today with bacteremia and post-operative fluid collection. Pt underwent L3-L5 decompression and fusion with excision of extradural mass L4-L5 left on 12/11/[address] Claros. Pt had an uneventful initial post-operative course and was discharged to home on 12/15/24. On 12/19, he presented to the ED at [facility] due to severe lower back pain and was admitted for pain control. Initial CRP on 12/20 was reported to be 21 so blood cultures were drawn. MRI showed a fluid collection at L3-L5, hematoma vs. seroma vs. infection. Yesterday, 1 of 4 blood cultures came back positive for GPC so vancomycin and Zosyn were initiated. CRP yesterday was 9.4. Today, 4 of 4 blood cultures were positive for GPC and CRP increased to 15.3 with corresponding increase in pain so hospitalist spoke with Dr. Claros regarding plan of care. Decision made to transfer patient to [facility] where his surgeon was available to see and manage patient. We have now been consulted to assist with medical management. Pt reports that he was having significant pain when he was discharged from [facility] that only worsened when he was at home. Describes the pain as being localized to his lower back without radiation to legs, no numbness or tingling. Denies chest pain, fevers, chills, N/V/D, SOB, abdominal pain. Last BM was yesterday. Having urinary urgency but denies dysuria or hematuria. CT L-spine 12/19/24 - an area of fluid within the spinal canal and protruding into the dorsal soft tissues, high density, favoring blood products (post-op hematoma vs. seroma) MRI Lumbar spin 12/20/24 - postsurgical laminectomy and posterior fusion changes at L4-5 again identified, previously seen fluid collection in postoperative bed is again identified, most pronounced at the L3-4 level and not well evaluated at the level of the hardware, fluid collection demonstrates mild peripheral enhancement (seroma and/or hematoma, cannot r/o superimposed infection such as abscess) [facility] Inpatient Medications: Zosyn 3.375 g IV Q8 hours, allopurinol 100 mg HS, atorvastatin 10 mg HS, subQ heparin 5000 units BID, sertraline 100 mg HS, tamsulosin 0.4 mg BID, vancomycin 1000 mg Q18 hours, levothyroxine 25 mcg daily, pantoprazole 40 mg daily Allergies Allergy/AdvReac Type Severity Reaction Status Date / Time adhesive tape Allergy Unknown Skin Verified 12/11/24 08:31 irritation Home Medications Medication Instructions Recorded Confirmed Type allopurinol 100 mg tablet 100 mg PO QPM 05/16/19 12/23/24 History coQ10 (ubiquinol) 100 mg capsule 100 mg PO QPM 05/16/19 12/23/24 History omeprazole 20 mg capsule,delayed 20 mg PO HS 05/16/19 12/23/24 History release sertraline 100 mg tablet 100 mg PO QPM 05/16/19 12/23/24 History simvastatin 20 mg tablet 20 mg PO HS 05/16/19 12/23/24 History tamsulosin 0.4 mg capsule 0.8 mg PO QPM 05/16/19 12/23/24 History turmeric root extract 500 mg 500 mg PO QPM 05/16/19 12/23/24 History capsule acetaminophen 500 mg tablet 500 mg PO Q6H #60 tabs 05/30/19 12/23/24 Rx (Tylenol Extra Strength) aspirin 325 mg tablet,delayed 325 mg PO DAILY #28 tabs 05/30/19 12/23/24 Rx release ibuprofen 600 mg tablet 600 mg PO Q6H #60 tabs 05/30/19 12/23/24 Rx levothyroxine 25 mcg tablet 25 mcg PO DAILY 12/11/24 12/23/24 History oxycodone 5 mg tablet 5 mg PO Q6H PRN pain #30 tabs 12/11/24 12/23/24 Rx tramadol 50 mg tablet 50 mg PO Q6H PRN pain, moderate 12/11/24 12/23/24 Rx #30 tabs Patient History Medical History Hypothyroidism Gout Obesity Arthritis BPH (benign prostatic hyperplasia) Hiatal hernia GERD (gastroesophageal reflux disease) Controlled Diabetes mellitus, type 2 Per records, patient denies Cancer Skin (s/p excision)- ?BCC vs. SCC Sleep apnea CPAP (non-compliant per pt) Hyperlipidemia Surgical History History of tooth extraction Hx of removal of cyst 3 from back area removed in Aug 2024 History of left shoulder replacement Left reverse shoulder arthroplasty (05/30/19): "Pt with poor view with MAC 4, easy mask. Short neck. Glidescope #3 used without difficulty" Hx of colonoscopy History of repair of rotator cuff Left History of total knee replacement R/L History of total hip arthroplasty R/L Hemorrhoids Removal History of herniorrhaphy Multiple History of tonsillectomy Fusion of spine (1995) 5-6 pt thinks > Cervical rods (r/t cervical fracture) limited ROM all directions History of bowel resection R/t perforation with colostomy > reversal colostomy Social History Smoking Status: Former smoker Tobacco Type: Cigarettes Second Hand Exposure: No; Do You Dip or Chew Tobacco: No; Hx Alcohol Use: No Hx Substance Use: No Preferred Language: Macedonian Communication Ability: Effective All Around Presser Required: No Beliefs That Will Affect Care: None marital status: Current Living Situation: Spouse Feels Safe at Home: Yes Assistive Devices: Cane and Walker Review of Systems Review of Systems: All systems reviewed & are unremarkable except as noted in Subjective Physical Exam Physical Exam: Please see physician note for details of the physical exam. (2) Lumbar surgical wound fluid collection Encounter type: initial encounter Qualified Code(s): T81.89XA - Other complications of procedures, not elsewhere classified, initial encounter (4) CKD (chronic kidney disease), stage III Chronic kidney disease stage 3 subtype: unspecified whether 3a or 3b Qualified Code(s): N18.30 - Chronic kidney disease, stage 3 unspecified (5) Sleep apnea Sleep apnea type: obstructive Qualified Code(s): G47.33 - Obstructive sleep apnea (adult) (pediatric) (6) BPH (benign prostatic hyperplasia) Lower urinary tract symptom detail: unspecified Lower urinary tract symptom presence: symptoms present Qualified Code(s): N40.1 - Benign prostatic hyperplasia with lower urinary tract symptoms (7) Hypothyroidism Hypothyroidism type: unspecified Qualified Code(s): E03.9 - Hypothyroidism, unspecified
[2024-12-23] MEDS: Patient's HEIGHT &/or WEIGHT Needed STA (15:28)
[2024-12-23] MEDS: HYDROmorphone INJ 1 MG/ML SYRINGE IV PRN (15:41)
[2024-12-23] MEDS ORDERED: GLUCOSE 10 TAB/TUBE PO PRN (15:50)
[2024-12-23] MEDS ORDERED: GLUCAGON FOR INJ 1 MG VIAL SQ PRN (15:50)
[2024-12-23] MEDS ORDERED: CARBOHYDRATES FOR HYPOGLYCEMIA PO PRN (15:50)
[2024-12-23] MEDS ORDERED: DEXTROSE 50% 50 ML SYRINGE IV PRN (15:50)
[2024-12-23] MEDS ORDERED: GLUCOSE 40% GEL 15 GM TUBE PO PRN (15:50)
[2024-12-23] MEDS ORDERED: VANCOMYCIN CONSULT ACTIVE PRN (16:10)
[2024-12-23 16:27] LABS: Basophils # (auto) 0.03 K/uL (0.00-0.20); Basophils % (auto) 0.2 %; Eosinophils # (auto) 0.08 K/uL (0.00-0.50); Eosinophils % (auto) 0.7 %; Hematocrit (blood only) 33.8 % (42.0-52.0); Hemoglobin 11.3 g/dl (14.0-18.0); Immature Granulocytes # (auto) 0.21 K/uL (0.01-0.20); Immature Granulocytes % (auto) 1.7 %; Lymphocytes # (auto) 0.76 K/uL (1.20-3.40); Lymphocytes % (auto) 6.2 %; Mean Corpuscular Hemoglobin 32.5 pg (25.0-34.0); Mean Corpuscular Hgb Conc 33.4 g/dL (32.0-36.0); Mean Corpuscular Volume 97.1 fL (80.0-100.0); Mean Platelet Volume 9.6 fL (9.4-12.4); Monocytes % (auto) 7.3 %; Neutrophils # (auto) 10.27 K/uL (1.40-6.50); Neutrophils % (auto) 83.9 %; Platelet Count 322 K/uL (130-400); RDW Coefficient of Variation 13.1 % (11.5-14.5); RDW Standard Deviation 46.5 fL (36.4-46.3); Red Blood Count 3.48 M/uL (4.70-6.10); White Blood Count 12.25 K/ul (4.8-10.8)
--- NOTE | 2024-12-23 16:30 | Pharmacy Report ---
Pharmacy PK ABX Note - Date of Service December 23, 2024 - Assessment and Plan Assessment 79 year old M receiving IV Vancomycin + Zosyn for treatment of bacteremia. Patient transferred from [facility], where he received: 3 doses of Zosyn 3.375g IV q8h Vancomycin 2g IV on 12/22 @ 1600, 1g IV on 12/23 @0912 SCr at baseline = 1.3mg/dl Pertinent microbiologic data from [facility] includes: Bloods culture growing GPC in 11/15. Day # 2 of antimicrobial therapy. Plan Vancomycin * Maintenance dose: 1500 mg IV every 24 hours, begin at 1800 today. * Regimen is predicted to achieve target AUC/GILDA of 400-600 mg/L.hr * Random level ordered for: 12/24/24 Zosyn 4.5g IV Q8H Pharmacy will continue to follow and will adjust dose/frequency as necessary. Thank you. Pharmacy has transitioned to AUC monitoring for vancomycin. AUC/GILDA is the pr eferred PK/PD target and is associated with decreased risk of nephrotoxicity compared to traditional trough targets.
[2024-12-23] MEDS: INSULIN ASPART PER UNIT CHARGE SC SCH (16:50)
[2024-12-23 16:53] LABS: Albumin Globulin Ratio 1.1 (0.9-2); Albumin Level 3.4 gm/dl (3.4-5.0); BUN Creatinine Ratio 24.2 (10-20); Bilirubin,Total 0.5 mg/dl (0.2-1.0); Calcium 9.1 mg/dl (8.6-10.3); Creatinine Clr Calc Pharmacy 63.4 ml/min; Globulin 3.2 gm/dl (2.5-4.0); Potassium 4.5 mmol/L (3.5-5.1); Total Protein 6.6 gm/dl (6.0-8.3)
[2024-12-23 17:05] LABS: INR 1.1 (0.9-1.1); Partial Thromboplastin Ratio 1.3; Partial Thromboplastin Time 34 Seconds (21-31); Prothrombin Time 11.4 Seconds (9.0-12.0)
[2024-12-23] MEDS: PIPERACILLIN/TAZOBACTAM 4.5 GM/100 ML BAG IV SCH (17:10)
[2024-12-23] MEDS: VANCOMYCIN HCL 1,500 MG in SODIUM CHLORIDE 0.9% 500 ML IV SCH (17:10)
[2024-12-23] MEDS: SIMVASTATIN 20 MG TAB PO SCH (21:32)
[2024-12-23] MEDS: allopurinoL 100 MG TAB PO SCH (21:32)
[2024-12-23] MEDS: TAMSULOSIN HCL 0.4 MG CAP PO SCH (21:32)
[2024-12-23] MEDS: SERTRALINE HCL 100 MG TABLET PO SCH (21:32)
[2024-12-24] MEDS ORDERED: Nursing to Pharmacy Communication SCH (04:45)
[2024-12-24] MEDS: ACETAMINOPHEN 1,000 MG/100 ML VIAL IV PRN (05:41)
[2024-12-24] MEDS: LEVOTHYROXINE SODIUM 25 MCG TABLET PO SCH (05:41)
[2024-12-24 05:44] LABS: Basophils # (auto) 0.03 K/uL (0.00-0.20); Basophils % (auto) 0.3 %; Eosinophils # (auto) 0.14 K/uL (0.00-0.50); Eosinophils % (auto) 1.3 %; Hematocrit (blood only) 31.9 % (42.0-52.0); Hemoglobin 10.7 g/dl (14.0-18.0); Immature Granulocytes # (auto) 0.25 K/uL (0.01-0.20); Immature Granulocytes % (auto) 2.2 %; Lymphocytes # (auto) 1.02 K/uL (1.20-3.40); Lymphocytes % (auto) 9.1 %; Mean Corpuscular Hemoglobin 32.3 pg (25.0-34.0); Mean Corpuscular Hgb Conc 33.5 g/dL (32.0-36.0); Mean Corpuscular Volume 96.4 fL (80.0-100.0); Mean Platelet Volume 9.5 fL (9.4-12.4); Monocytes # (auto) 0.93 K/uL (0.11-0.59); Monocytes % (auto) 8.3 %; Neutrophils # (auto) 8.81 K/uL (1.40-6.50); Neutrophils % (auto) 78.8 %; Platelet Count 315 K/uL (130-400); RDW Coefficient of Variation 13.1 % (11.5-14.5); RDW Standard Deviation 45.9 fL (36.4-46.3); Red Blood Count 3.31 M/uL (4.70-6.10); White Blood Count 11.18 K/ul (4.8-10.8)
[2024-12-24 06:00] LABS: BUN Creatinine Ratio 21.1 (10-20); C Reactive Protein 20.95 mg/dl (0-0.5); Calcium 8.9 mg/dl (8.6-10.3); Creatinine Clr Calc Pharmacy 66.7 ml/min; Potassium 4.6 mmol/L (3.5-5.1)
[2024-12-24] MEDS: INSULIN ASPART PER UNIT CHARGE SC SCH (06:30)
[2024-12-24] MEDS: PANTOprazole 40 MG TAB PO SCH (09:31)
[2024-12-24] MEDS: oxyCODONE HCL IR 5 MG TAB (IMMEDIATE RELEASE) PO PRN (09:37)
[2024-12-24] MEDS ORDERED: LIDOCAINE 2% 2 ML VIAL/AMP(20MG/ML) INFIL ONE (09:59)
[2024-12-24] MEDS ORDERED: ONDANSETRON INJ 2 MG/ML 2 ML VIAL ONE (09:59)
[2024-12-24] MEDS ORDERED: GLYCOPYRROLATE 0.2 MG/ML VIAL ONE (09:59)
[2024-12-24] MEDS ORDERED: PROPOFOL IV EMULSION 10 MG/ML 20 ML VIAL IV ONE (09:59)
[2024-12-24] MEDS ORDERED: fentaNYL citrate PF 100 MCG/2 ML VIAL ONE (09:59)
[2024-12-24] MEDS ORDERED: MIDAZOLAM HCL 1 MG/ML 2ML VIAL ONE (09:59)
[2024-12-24] MEDS ORDERED: ROCURONIUM BROMIDE 10 MG/ML 5 ML VIAL IV ONE (09:59)
[2024-12-24] MEDS ORDERED: DEXAMETHASONE SOD INJ 4 MG/ML VIAL ONE (09:59)
[2024-12-24] MEDS ORDERED: SUGAMMADEX SODIUM 200 MG/2 ML VIAL IV ONE (10:03)
--- NOTE | 2024-12-24 10:19 | History & Physical Report ---
Date of Service December 24, 2024 Assessment & Plan (1) Lumbar surgical wound fluid collection: Plan: Plan at this time he is n.p.o. we will plan for irrigation and debridement of lumbar spine today. Admission and Anticipated Discharge Date Admission Date: December 23, 2024 History of Present Illness Chief Complaint: Positive blood cultures Primary Care Provider: Laya Bergman PA-C This is a 79-year-old male well-known to hi status post lumbar decompression and fusion of the lumbar spine. He was discharged last week and was later taken to the [facility] over the weekend. We were notified yesterday that he is having positive blood cultures and there is suspicion that it is from the lumbar region. Subsequently he was admitted to [facility] with plans for I&D. He notes no significant back pain today. He denies any radicular complaints or leg weakness. Allergies Allergy/AdvReac Type Severity Reaction Status Date / Time adhesive tape Allergy Unknown Skin Verified 12/11/24 08:31 irritation Home Medications Medication Instructions Recorded Confirmed Type allopurinol 100 mg tablet 100 mg PO QPM 05/16/19 12/23/24 History coQ10 (ubiquinol) 100 mg capsule 100 mg PO QPM 05/16/19 12/23/24 History omeprazole 20 mg capsule,delayed 20 mg PO HS 05/16/19 12/23/24 History release sertraline 100 mg tablet 100 mg PO QPM 05/16/19 12/23/24 History simvastatin 20 mg tablet 20 mg PO HS 05/16/19 12/23/24 History tamsulosin 0.4 mg capsule 0.8 mg PO QPM 05/16/19 12/23/24 History turmeric root extract 500 mg 500 mg PO QPM 05/16/19 12/23/24 History capsule acetaminophen 500 mg tablet 500 mg PO Q6H #60 tabs 05/30/19 12/23/24 Rx (Tylenol Extra Strength) aspirin 325 mg tablet,delayed 325 mg PO DAILY #28 tabs 05/30/19 12/23/24 Rx release ibuprofen 600 mg tablet 600 mg PO Q6H #60 tabs 05/30/19 12/23/24 Rx levothyroxine 25 mcg tablet 25 mcg PO DAILY 12/11/24 12/23/24 History oxycodone 5 mg tablet 5 mg PO Q6H PRN pain #30 tabs 12/11/24 12/23/24 Rx tramadol 50 mg tablet 50 mg PO Q6H PRN pain, moderate 12/11/24 12/23/24 Rx #30 tabs Past Med/Surg History Problem List (Updated 12/23/24 @ 16:55 by Ibis Smith PA-C) Lumbar surgical wound fluid collection Bacteremia Acute blood loss anemia CKD (chronic kidney disease), stage III Prediabetes S/P spinal surgery Lumbosacral spondylosis with radiculopathy Encounter for pre-operative examination Medical History Hypothyroidism Gout Obesity Arthritis BPH (benign prostatic hyperplasia) Hiatal hernia GERD (gastroesophageal reflux disease) Controlled Diabetes mellitus, type 2 Per records, patient denies Cancer Skin (s/p excision)- ?BCC vs. SCC Sleep apnea CPAP (non-compliant per pt) Hyperlipidemia Surgical History History of tooth extraction Hx of removal of cyst 3 from back area removed in Aug 2024 History of left shoulder replacement Left reverse shoulder arthroplasty (05/30/19): "Pt with poor view with MAC 4, easy mask. Short neck. Glidescope #3 used without difficulty" Hx of colonoscopy History of repair of rotator cuff Left History of total knee replacement R/L History of total hip arthroplasty R/L Hemorrhoids Removal History of herniorrhaphy Multiple History of tonsillectomy Fusion of spine (1995) 5-6 pt thinks > Cervical rods (r/t cervical fracture) limited ROM all directions History of bowel resection R/t perforation with colostomy > reversal colostomy Social History Smoking Status: Former smoker Tobacco Type: Cigarettes Second Hand Exposure: No; Do You Dip or Chew Tobacco: No; Tobacco Cessation Education Requested by Patient: No Hx Alcohol Use: No Hx Substance Use: No Preferred Language: Lithuanian Communication Ability: Effective Nurse Consultant Required: No Beliefs That Will Affect Care: None marital status: Current Living Situation: Spouse Other Information That Helps Us Care for You: No Feels Safe at Home: Yes Safety Concerns: Feels Safe At This Time Assistive Devices: Cane and Walker Physical Exam Physical Exam: On exam he is neurologically intact. He is comfortable. He does have some tenderness to the right knee but painless range of motion to the right knee. Results & Data Results & Data Vital Signs (Past 12 Hours) Vital Signs Temp Pulse Resp BP Pulse Ox O2 Del Method 12/24/24 09:35 Room Air 12/24/24 07:18 36.4 C L 65 18 124/68 96 Room Air Code Status & VTE Plan VTE Prophylaxis Plan VTE Prophylaxis will be ordered: Yes (1) Lumbar surgical wound fluid collection Encounter type: initial encounter Qualified Code(s): T81.89XA - Other complications of procedures, not elsewhere classified, initial encounter
[2024-12-24] MEDS: LACTATED RINGER'S 1,000 ML IV SCH (11:20)
--- NOTE | 2024-12-24 12:25 | Anesthesiology Consultation ---
Date of Service December 24, 2024 Assessment & Plan Chart Review Chart Review: Acceptable Risk for Surgery ASA ASA3 Proposed Anesthesia Anesthesia Type: General Risk / Benefits Reviewed With: PT / POA / Parent / Guardian, Accepts Plan and Informed Consent Obtained History Surgery Operation Date: 12/24/24 12:55 Proposed Procedures p Incision and Drainage Lumbar Spine - Karan Claros, DO Height/Weight Height: 5 ft 10 in Weight: 115 kg Allergies Allergy/AdvReac Type Severity Reaction Status Date / Time adhesive tape Allergy Unknown Skin Verified 12/11/24 08:31 irritation Medications Home Medications Medication Instructions Recorded Confirmed Last Taken allopurinol 100 mg tablet 100 mg PO QPM 05/16/19 12/23/24 12/10/24 21:00 coQ10 (ubiquinol) 100 mg capsule 100 mg PO QPM 05/16/19 12/23/24 1 Week Ago ~12/04/24 omeprazole 20 mg capsule,delayed 20 mg PO HS 05/16/19 12/23/24 12/10/24 21:00 release sertraline 100 mg tablet 100 mg PO QPM 05/16/19 12/23/24 12/10/24 21:00 simvastatin 20 mg tablet 20 mg PO HS 05/16/19 12/23/24 12/10/24 21:00 tamsulosin 0.4 mg capsule 0.8 mg PO QPM 05/16/19 12/23/24 12/10/24 21:00 turmeric root extract 500 mg 500 mg PO QPM 05/16/19 12/23/24 1 Week Ago capsule ~12/04/24 acetaminophen 500 mg tablet 500 mg PO Q6H #60 tabs 05/30/19 12/23/24 12/11/24 05:00 (Tylenol Extra Strength) aspirin 325 mg tablet,delayed 325 mg PO DAILY #28 tabs 05/30/19 12/23/24 12/11/24 06:00 release ibuprofen 600 mg tablet 600 mg PO Q6H #60 tabs 05/30/19 12/23/24 1 Year Ago ~12/12/23 levothyroxine 25 mcg tablet 25 mcg PO DAILY 12/11/24 12/23/24 12/11/24 oxycodone 5 mg tablet 5 mg PO Q6H PRN pain #30 tabs 12/11/24 12/23/24 Unknown tramadol 50 mg tablet 50 mg PO Q6H PRN pain, moderate 12/11/24 12/23/24 Unknown #30 tabs Active Medications Generic Name Dose Route Start Last Admin Trade Name Lasha PRN Reason Stop Dose Admin Allopurinol 100 mg 12/23/24 21:00 12/23/24 21:32 Allopurinol 100 Mg Tab PO 01/22/25 20:59 100 mg QPM KATHERINE Administration Hydromorphone HCl 1 mg 12/23/24 15:15 12/23/24 21:36 Hydromorphone Inj 1 Mg/Ml Syringe IV 01/06/25 15:14 1 mg Q3H PRN Administration severe pain (scale 7-10) Acetaminophen 1,000 mg in 100 mls @ 400 mls/hr 12/23/24 15:15 12/24/24 06:29 Ofirmev IV 12/24/24 15:16 Infused Q8H PRN Infusion Pain Rating 1-3 & Pre PT Piperacillin Sod/Tazobactam Sod 4.5 gm in 100 mls @ 25 mls/hr 12/23/24 18:00 12/24/24 09:31 Zosyn IV 01/06/25 17:59 25 mls/hr Q8H KATHERINE Administration Protocol Vancomycin HCl 1,500 mg/ 530 mls @ 200 mls/hr 12/23/24 18:00 12/23/24 21:28 Sodium Chloride IV 01/06/25 17:59 Infused Q24H KATHERINE Infusion Lactated Ringer's 1,000 mls @ 15 mls/hr 12/24/24 11:30 12/24/24 11:20 Lr IV 12/27/24 11:29 15 mls/hr .Q24H KATHERINE Administration Insulin Aspart 0 units 12/24/24 06:00 12/24/24 06:30 Insulin Aspart Per Unit Charge SC 01/23/25 05:59 Not Given Q6 KATHERINE Levothyroxine Sodium 25 mcg 12/24/24 06:30 12/24/24 05:41 Levothyroxine Sodium 25 Mcg Tablet PO 01/23/25 06:29 25 mcg DAILYBB KATHERINE Administration Oxycodone HCl 5 - 10 mg 12/23/24 15:15 12/24/24 09:37 Oxycodone Hcl Ir 5 Mg Tab (Immediate Release) PO 01/06/25 15:14 5 mg Q4H PRN Administration mod to severe pain Pantoprazole Sodium 40 mg 12/24/24 09:00 12/24/24 09:31 Pantoprazole 40 Mg Tab PO 01/23/25 08:59 40 mg QAM KATHERINE Administration Sertraline HCl 100 mg 12/23/24 21:00 12/23/24 21:32 Sertraline Hcl 100 Mg Tablet PO 01/22/25 20:59 100 mg QPM KATHERINE Administration Simvastatin 20 mg 12/23/24 21:00 12/23/24 21:32 Simvastatin 20 Mg Tab PO 01/22/25 20:59 20 mg HS KATHERINE Administration Tamsulosin HCl 0.8 mg 12/23/24 21:00 12/23/24 21:32 Tamsulosin Hcl 0.4 Mg Cap PO 01/22/25 20:59 0.8 mg QPM KATHERINE Administration NPO Date Last Intake of Fluids: 12/24/24 Time Last Intake of Fluids: 09:37 Date Last Intake of Solids: 12/23/24 Time Last Intake of Solids: 18:00 Past Medical History Medical History Hypothyroidism Gout Obesity Arthritis BPH (benign prostatic hyperplasia) Hiatal hernia GERD (gastroesophageal reflux disease) Controlled Diabetes mellitus, type 2 Per records, patient denies Cancer Skin (s/p excision)- ?BCC vs. SCC Sleep apnea CPAP (non-compliant per pt) Hyperlipidemia Exercise / Class Metabolic Activity IV < 2 Limit ADL/Bedbound Past Surgical History Surgical History History of tooth extraction Hx of removal of cyst 3 from back area removed in Aug 2024 History of left shoulder replacement Left reverse shoulder arthroplasty (05/30/19): "Pt with poor view with MAC 4, easy mask. Short neck. Glidescope #3 used without difficulty" Hx of colonoscopy History of repair of rotator cuff Left History of total knee replacement R/L History of total hip arthroplasty R/L Hemorrhoids Removal History of herniorrhaphy Multiple History of tonsillectomy Fusion of spine (1995) 5-6 pt thinks > Cervical rods (r/t cervical fracture) limited ROM all directions History of bowel resection R/t perforation with colostomy > reversal colostomy Past Anesthesia History No Hx of Anesthesia Complications and No Family Hx of Anesthesia Complications History of PONV No Hx of PONV and No Hx of Motion Sickness Social History Smoking Status: Former smoker Do You Dip or Chew Tobacco: No Hx Alcohol Use: No Alcohol type: beer alcohol intake frequency: a few times a week Hx Substance Use: No substance use type: does not use Physical Exam Vital Signs Last Vital Signs Temp 36.8 C 12/24/24 11:11 Pulse 65 12/24/24 11:11 Resp 20 12/24/24 11:11 BP 114/60 12/24/24 11:11 Pulse Ox 97 12/24/24 11:11 O2 Del Method Room Air 12/24/24 11:11 Constitutional + obese; no acute distress ENMT Mouth: + dentures and + chipped teeth; no TMJ abnormality Thyromental Distance: > or= 3.5 Finger Breadths Mallampati Class: III Neck normal visual inspection Respiratory normal respiratory effort; no respiratory distress Auscultation: lungs clear to auscultation bilaterally Cardiovascular Rate/Rhythm: regular rate and regular rhythm Musculoskeletal Extremities: extremities normal to inspection Psychiatric Orientation: alert and oriented x 3 Testing Laboratory Results 12/24/24 05:25 12/24/24 05:25 PT 11.4 Seconds (9.0-12.0) 12/23/24 16:09 INR 1.1 (0.9-1.1) 12/23/24 16:09 APTT 34 Seconds (21-31) H 12/23/24 16:09 12/24/24 12/24/24 11:13 06:02 POC Glucose 100 H 89 Electrocardiogram Date: 08/15/24 Findings: + NSR @ and + RBBB
[2024-12-24] MEDS ORDERED: HYDROmorphone INJ 1 MG/ML SYRINGE IV PRN (12:26)
[2024-12-24] MEDS ORDERED: HYDROmorphone INJ 2 MG/ML SYR/VIAL IV PRN (12:26)
[2024-12-24] MEDS ORDERED: ATROPINE SULFATE 0.1 MG/ML 10ML SYR IV PRN (12:26)
[2024-12-24] MEDS ORDERED: ePHEDrine sulfate 50 MG/ML AMP IV PRN (12:26)
[2024-12-24] MEDS ORDERED: ONDANSETRON INJ 2 MG/ML 2 ML VIAL IV PRN ×2 (12:26→14:44)
--- NOTE | 2024-12-24 13:01 | Hospitalist Progress Note ---
Date of Service December 24, 2024 Assessment & Plan (1) Bacteremia: (2) Lumbar surgical wound fluid collection: (3) Prediabetes: (4) CKD (chronic kidney disease), stage III: (5) Sleep apnea: (6) BPH (benign prostatic hyperplasia): (7) Hypothyroidism: (8) Gout: Plan This is a 79 y/o male with hypothyroidism, prediabetes, gout, ANGELA, mood disorder and other medical history as outlined below who was transferred from [facility] today with bacteremia and post-operative fluid collection. Today 4/4 blood cultures positive for GPC, pt has been on vancomycin and Zosyn since yesterday. Spoke with Dr. Gonzalez, hospitalist at [facility] to get report. Records from admission there were extensively reviewed. Final identification of organism is still pending. We have been consulted for medical management. Tentative plan for OR tomorrow. #Post-operative fluid collection #Bacteremia - 4/4 positive blood cultures for GPC, final ID pending at [facility] - Continue empiric vancomycin and Zosyn for now - f/u repeat cultures - will consult ID once sensitivities available - Procedural management per primary service - OR today, POD 0 #Severe back pain due to #1 - Pain control and activity per primary team #Prediabetes - Diabetic diet - Insulin sliding scale #Gout - Chronic, stable - continue allopurinol #ANGELA - does not use CPAP at home but will to use while admitted - CPAP at HS per protocol #CKD3 - baseline creatinine 1.4 - Check labs today and in the AM #Hyperlipidemia - Chronic, stable - continue statin #BPH - having difficulty with urgency, trouble using the urinal with resultant incontinence - Continue tamsulosin #GERD - Chronic, stable - continue daily PPI #Hypothyroidism - Chronic, stable - continue levothyroxine I spent a total of 40 minutes in direct patient care, including [id number] time with the patient and/or family, reviewing medical records, ordering and reviewing diagnostic tests, and coordinating care with other healthcare providers. This time includes: history taking, physical examination, medical decision making, counseling, ECG interpretation, imaging interpretation, lab interpretation, orders, and education, excluding time spent in the performance of separately billed services. Admission and Anticipated Discharge Date Admission Date: December 23, 2024 Subjective Patient seen and examined at bedside. Patient looking forward to procedure, states he has a lot of pain with movement. Review of Systems Review of Systems: CONSTITUTIONAL: Patient denies fevers, chills, sweats and weight changes. EYES: Patient denies any visual symptoms. EARS, NOSE, AND THROAT: No difficulties with hearing. No symptoms of rhinitis or sore throat. CARDIOVASCULAR: Patient denies chest pains, palpitations, orthopnea and paroxysmal nocturnal dyspnea. RESPIRATORY: No dyspnea on exertion, no wheezing or cough. GI: No nausea, vomiting, diarrhea, constipation, abdominal pain, hematochezia or melena. : No urinary hesitancy or dribbling. No nocturia or urinary frequency. No abnormal urethral discharge. MUSCULOSKELETAL: lower back pain NEUROLOGIC: No chronic headaches, no seizures. Patient denies numbness, tingling or weakness. PSYCHIATRIC: Patient denies problems with mood disturbance. No problems with anxiety. ENDOCRINE: No excessive urination or excessive thirst. DERMATOLOGIC: Patient denies any rashes or skin changes. Physical Exam Physical Exam: Gen: A&O 3 NAD HEENT: NCAT, EOMI, not icteric. External ears normal. No rhinorrhea. Moist mucous membranes. Neck: Supple, full range of motion, no observable masses, No meningeal sign. Lungs: No Respiratory distress. CV: RRR, no edema. Abdomen: Soft, nondistended, No rebound tenderness. MSK: low back pain and erythema Skin: No rashes, petechiae, lesions. Normal color per patient. Neuro: Normal Gait, Grossly intact. Psych: Appropriate for situation. Results & Data Results & Data Vital Signs (Past 12 Hours) Vital Signs Temp Pulse Resp BP Pulse Ox O2 Del Method 12/24/24 11:11 36.8 C 65 20 114/60 97 Room Air 12/24/24 09:35 Room Air 12/24/24 07:18 36.4 C L 65 18 124/68 96 Room Air Laboratory Results -personally reviewed, leukocytosis in setting of known bacteremia and wound infection Medications Administered Allopurinol (Allopurinol 100 Mg Tab) 100 mg PO QPM [facility] Stop: 01/22/25 20:59 Last Admin: 12/23/24 21:32 Dose: 100 mg Documented By: DIXIE Hydromorphone HCl (Hydromorphone Inj 1 Mg/Ml Syringe) 1 mg IV Q3H PRN PRN Reason: severe pain (scale 7-10) Stop: 01/06/25 15:14 Last Admin: 12/23/24 21:36 Dose: 1 mg Documented By: Admin: 12/23/24 15:41 Dose: 1 mg Documented By: JASPREET Acetaminophen (Ofirmev) 1,000 mg in 100 mls @ 400 mls/hr IV Q8H PRN PRN Reason: Pain Rating 1-3 & Pre PT Stop: 12/24/24 15:16 Last Infusion: 12/24/24 06:29 Dose: Infused Documented By: Admin: 12/24/24 05:41 Dose: 400 mls/hr Documented By: DIXIE Piperacillin Sod/Tazobactam Sod (Zosyn) 4.5 gm in 100 mls @ 25 mls/hr IV Q8H KATHERINE; Protocol Stop: 01/06/25 17:59 Last Admin: 12/24/24 09:31 Dose: 25 mls/hr Documented By: Infusion: 12/24/24 06:31 Dose: Infused Documented By: Admin: 12/24/24 02:15 Dose: 25 mls/hr Documented By: Infusion: 12/23/24 21:28 Dose: Infused Documented By: Admin: 12/23/24 17:10 Dose: 25 mls/hr Documented By: JASPREET Vancomycin HCl 1,500 mg/ (Sodium Chloride) 530 mls @ 200 mls/hr IV Q24H [facility] Stop: 01/06/25 17:59 Last Infusion: 12/23/24 21:28 Dose: Infused Documented By: Admin: 12/23/24 17:10 Dose: 200 mls/hr Documented By: JASPREET Lactated Ringer's (Lr) 1,000 mls @ 15 mls/hr IV .Q24H KATHERINE Stop: 12/27/24 11:29 Last Infusion: 12/24/24 12:45 Dose: Infused Documented By: Admin: 12/24/24 11:20 Dose: 15 mls/hr Documented By: TE Insulin Aspart (Insulin Aspart Per Unit Charge) 0 units SC Q6 KATHERINE Stop: 01/23/25 05:59 Last Admin: 12/24/24 06:30 Dose: Not Given Documented By: DIXIE Co-signed By: SAIRA Levothyroxine Sodium (Levothyroxine Sodium 25 Mcg Tablet) 25 mcg PO DAILYBB [facility] Stop: 01/23/25 06:29 Last Admin: 12/24/24 05:41 Dose: 25 mcg Documented By: DIXIE Oxycodone HCl (Oxycodone Hcl Ir 5 Mg Tab (Immediate Release)) 5 - 10 mg PO Q4H PRN PRN Reason: mod to severe pain Stop: 01/06/25 15:14 Last Admin: 12/24/24 09:37 Dose: 5 mg Documented By: JJ Pantoprazole Sodium (Pantoprazole 40 Mg Tab) 40 mg PO QAM KATHERINE Stop: 01/23/25 08:59 Last Admin: 12/24/24 09:31 Dose: 40 mg Documented By: JJ Sertraline HCl (Sertraline Hcl 100 Mg Tablet) 100 mg PO QPM KATHERINE Stop: 01/22/25 20:59 Last Admin: 12/23/24 21:32 Dose: 100 mg Documented By: DIXIE Simvastatin (Simvastatin 20 Mg Tab) 20 mg PO HS KATHERINE Stop: 01/22/25 20:59 Last Admin: 12/23/24 21:32 Dose: 20 mg Documented By: DIXIE Tamsulosin HCl (Tamsulosin Hcl 0.4 Mg Cap) 0.8 mg PO QPM KATHERINE Stop: 01/22/25 20:59 Last Admin: 12/23/24 21:32 Dose: 0.8 mg Documented By: DIXIE (2) Lumbar surgical wound fluid collection Encounter type: initial encounter Qualified Code(s): T81.89XA - Other complications of procedures, not elsewhere classified, initial encounter (4) CKD (chronic kidney disease), stage III Chronic kidney disease stage 3 subtype: unspecified whether 3a or 3b Qualified Code(s): N18.30 - Chronic kidney disease, stage 3 unspecified (5) Sleep apnea Sleep apnea type: obstructive Qualified Code(s): G47.33 - Obstructive sleep apnea (adult) (pediatric) (6) BPH (benign prostatic hyperplasia) Lower urinary tract symptom presence: symptoms present Lower urinary tract symptom detail: unspecified Qualified Code(s): N40.1 - Benign prostatic hyp erplasia with lower urinary tract symptoms (7) Hypothyroidism Hypothyroidism type: unspecified Qualified Code(s): E03.9 - Hypothyroidism, unspecified
[2024-12-24] MEDS ORDERED: ePHEDrine sulfate 50 MG/5 ML SYR ONE (13:06)
[2024-12-24] MEDS ORDERED: PHENYLEPHRINE 100MCG/ML 5ML SYR ONE (13:11)
[2024-12-24] MEDS: VANCOMYCIN HCL 1000MG/20ML VIAL ONE (13:25)
[2024-12-24] MEDS: BUPIVACAINE/EPINEPHRINE 0.25% 1:200,000 30 ML VIAL ONE (13:25)
[2024-12-24] MEDS: GENTAMICIN SULFATE 40 MG/ML 2 ML VIAL ONE (13:25)
[2024-12-24] MEDS: ceFAZolin 330 MG/ML 1 GM VIAL ONE (13:26)
--- NOTE | 2024-12-24 13:31 | Operative Report ---
Post Operative Report Pre & Post Diagnosis Operation Date: 12/24/24 12:55 Pre-Op Diagnosis: Lumbar surgical wound fluid collection Post-Op Diagnosis: Lumbar epidural abscess I identified the patient and participated in the time-out.: Yes Procedure Operation Date: 12/24/24 12:55 Actual Procedures Irrigation debridement lumbar spine Surgeon Karan Claros DO [employer] Ludmila Arreola Estimated Blood Loss 100 Findings See Below Evidence of epidural hematoma with the beginnings of purulence Specimens Culture of the epidural space Indications This is a 79-year-old male who presents with positive blood cultures and MRI consistent with significant fluid collection. In light of his postoperative status and presentation I am performing a urgent irrigation debridement lumbar spine Description of Procedure Patient was met with identified informed consent obtained. Patient was then taken to the operative suite underwent patient placed in a prone position on the Usman table top of the Ehsan frame. All bony promises well-padded eyes inspected to ensure no external pressure placed upon them. This point the lumbar spine was prepped and draped in normal sterile fashion. Sharp dissection was performed through the previous incision site down to the fascial layer. The fascia was released and significant amounts of hematoma under pressure was noted. It was evacuated its entirety. Several liters of antibiotic solution were then irrigated throughout the incision. I then placed approximate 10 cc of Stimulan beads impregnated with gentamicin and vancomycin throughout the wound. 215 round ERON drains were then inserted. The incision was then closed with 1 Vicryl the fascia 2-0 Vicryl subcutaneously and 4 Monocryl for final skin closure. Steri-Strips and sterile dressing placed. Patient waken taken to PACU in stable condition. Please note Ludmila Arreola was present at the entire procedure and on the patient positioning complex portion of the surgery and final skin closure. I attest to the content of the Intraoperative Record and any orders documented therein. Any exceptions are noted below.
--- NOTE | 2024-12-24 13:39 | Pharmacy Report ---
Pharmacy PK ABX Note - Date of Service December 24, 2024 - Assessment and Plan Assessment 12/24: * Reportedly 11/15 blood cultures at OSH were positive for GPC--final identification still pending. * I&D of lumbar spine today (evidence of epidural hematoma with beginnings of purulence. * CKD--SCr improved from baseline (1.14 today) * Vanco level drawn this morning was 17mcg/mL * Patient continues on vancomycin and zosyn --Day 3 of antimicrobial therapy. 12/23: 79 year old M receiving IV Vancomycin + Zosyn for treatment of bacteremia. Patient transferred from [facility], where he received: 3 doses of Zosyn 3.375g IV q8h Vancomycin 2g IV on 12/22 @ 1600, 1g IV on 12/23 @0912 SCr at baseline = 1.3mg/dl Plan Vancomycin * Vanco level today was 17mcg/mL which extrapolates to an AUC within the goal range * Maintenance dose: continue 1500 mg IV every 24 hours. * Regimen is predicted to achieve target AUC/GILDA of 400-600 mg/L.hr * Another vancomycin level will be ordered in the next 48-72 hours to ensure t hat its within the therapeutic window. Zosyn 4.5g IV Q8H Pharmacy will continue to follow and will adjust dose/frequency as necessary. Thank you. Pharmacy has transitioned to AUC monitoring for vancomycin. AUC/GILDA is the preferred PK/PD target and is associated with decreased risk of nephrotoxicity compared to traditional trough targets.
--- NOTE | 2024-12-24 14:24 | Anesthesiology Progress Note ---
Date of Service December 24, 2024 Anesthesia Post Procedure Vital Signs Vital Signs: Temp Pulse Pulse Resp BP BP Pulse Ox 12/24/24 14:15 36.6 C 85 18 128/58 L 95 12/24/24 14:05 87 16 111/68 96 12/24/24 13:55 90 18 123/53 L 100 12/24/24 13:44 36.7 C 94 H 16 121/60 98 12/24/24 11:11 36.8 C 65 20 114/60 97 12/24/24 09:35 12/24/24 07:18 36.4 C L 65 18 124/68 96 12/23/24 21:15 36.5 C 78 18 136/74 95 12/23/24 15:06 36.7 C 150/80 H 97 O2 Del Method O2 Flow Rate 12/24/24 14:15 Room Air 12/24/24 14:05 Room Air 12/24/24 13:55 Oxymask 3 12/24/24 13:44 Oxymask 6 12/24/24 11:11 Room Air 12/24/24 09:35 Room Air 12/24/24 07:18 Room Air 12/23/24 21:15 Room Air 12/23/24 15:06 Room Air Pain Intensity Back: Pain Intensity: 4 Transfer of Care Handoff Completed per policy Notes Mental Status: alert / awake / arousable Patient Amnestic to Procedure: Yes Nausea / Vomiting: adequately controlled Pain: adequately controlled Airway Patency, RR, SpO2: stable & adequate BP & HR: stable & adequate Hydration State: stable & adequate Anesthetic Complications: no major complications apparent and Pt Satisfied with anesthetic care
[2024-12-24] MEDS ORDERED: NALOXONE HCL 0.4 MG/1 ML VIAL/CARP IV PRN (14:44)
[2024-12-24] MEDS ORDERED: LORazepam 0.5 MG TAB PO PRN (14:44)
[2024-12-24] MEDS ORDERED: bisacodyL 10 MG SUPP PR PRN (14:44)
[2024-12-24] MEDS ORDERED: ONDANSETRON 4 MG OD TAB PO PRN (14:44)
[2024-12-24] MEDS ORDERED: ALUMINUM/MAGNESIUM SUSP 30 ML UDC PO PRN (14:44)
[2024-12-24] MEDS ORDERED: LORazepam 2 MG/1 ML VIAL IV PRN (14:44)
[2024-12-24] MEDS ORDERED: METOCLOPRAMIDE HCL INJ 5 MG/ML 2 ML VIAL IV PRN (14:44)
[2024-12-24] MEDS ORDERED: ACETAMINOPHEN 1,000 MG/100 ML VIAL IV PRN (14:44)
[2024-12-24] MEDS ORDERED: DO NOT ADMINISTER PNEUMOCOCCAL VACCINE PRN (14:44)
[2024-12-24] MEDS ORDERED: DO NOT ADMINISTER FLU VACCINE PRN (14:44)
[2024-12-24] MEDS ORDERED: SOD PHOSPHATE/SOD BIPHOSPHATE ENEMA 132 ML BTL PR PRN (14:44)
[2024-12-24] MEDS ORDERED: hydrOXYzine HCl 25 MG TAB PO PRN (14:44)
[2024-12-24] MEDS ORDERED: FAMOTIDINE 20 MG TAB PO PRN (14:44)
[2024-12-24] MEDS ORDERED: MAGNESIUM HYDROXIDE SUSP 30 ML UDC PO PRN (14:44)
[2024-12-24] MEDS ORDERED: PROMETHAZINE 12.5 MG/50.5 ML BAG IV PRN (14:44)
[2024-12-24] MEDS: ACETAMINOPHEN 500 MG TAB PO PRN (16:34)
[2024-12-24] MEDS: DOCUSATE SODIUM/SENNA 50/8.6MG TAB PO SCH (20:40)
[2024-12-25] MEDS: POLYETHYLENE (MIRALAX) 17 GM PACK PO SCH (05:10)
[2024-12-25] MEDS: HYDROmorphone INJ 0.5 MG/0.5 ML SYR IV PRN (08:07)
[2024-12-25 08:24] LABS: Basophils # (auto) 0.02 K/uL (0.00-0.20); Basophils % (auto) 0.1 %; Hematocrit (blood only) 32.5 % (42.0-52.0); Hemoglobin 10.7 g/dl (14.0-18.0); Immature Granulocytes # (auto) 0.29 K/uL (0.01-0.20); Immature Granulocytes % (auto) 2.1 %; Lymphocytes # (auto) 0.69 K/uL (1.20-3.40); Lymphocytes % (auto) 5.1 %; Mean Corpuscular Hemoglobin 31.4 pg (25.0-34.0); Mean Corpuscular Hgb Conc 32.9 g/dL (32.0-36.0); Mean Corpuscular Volume 95.3 fL (80.0-100.0); Mean Platelet Volume 9.5 fL (9.4-12.4); Monocytes # (auto) 0.72 K/uL (0.11-0.59); Monocytes % (auto) 5.3 %; Neutrophils # (auto) 11.92 K/uL (1.40-6.50); Neutrophils % (auto) 87.4 %; Platelet Count 361 K/uL (130-400); Red Blood Count 3.41 M/uL (4.70-6.10); White Blood Count 13.64 K/ul (4.8-10.8)
[2024-12-25 08:36] LABS: BUN Creatinine Ratio 20.8 (10-20); Calcium 9.1 mg/dl (8.6-10.3); Creatinine Clr Calc Pharmacy 63.4 ml/min
--- NOTE | 2024-12-25 09:21 | Orthopedic Progress Note ---
Date of Service December 25, 2024 Assessment & Plan (1) Lumbar surgical wound fluid collection: Plan: At this time would like to initiate physical therapy today. Ambulate as tolerated. To his chair with all meals if tolerated. We await final cultures and recommendations of infectious disease. Admission and Anticipated Discharge Date Admission Date: December 23, 2024 Subjective Patient's back pain is controlled. Denies any leg pain. Physical Exam Physical Exam: Patient is currently in bed. Discussed when to testing. Appears comfortable. Results & Data Vital Signs (Past 12 Hours) Vital Signs Temp Pulse Pulse Resp BP BP Pulse Ox 12/25/24 07:17 36.6 C 75 18 143/72 H 95 12/25/24 05:05 36.5 C 72 115/66 95 12/24/24 23:20 36.4 C L 77 19 128/67 96 O2 Del Method 12/25/24 07:17 Room Air 12/25/24 05:05 Room Air 12/24/24 23:20 Room Air (1) Lumbar surgical wound fluid collection Encounter type: initial encounter Qualified Code(s): T81.89XA - Other complications of procedures, not elsewhere classified, initial encounter
--- NOTE | 2024-12-25 13:47 | XRay Report ---
KUB HISTORY: constipation COMPARISON STUDY: None FINDINGS: Single view of the abdomen demonstrates moderate, nonspecific gaseous distention of the col on. There is no point of obstruction. There is gas and fecal debris in the rectum. The cyst overall s tool burden is not pronounced. Evidence of prior ventral hernia repair is noted. There is an old L4-5 laminectomy and fusion. Degenerative change present throughout the remainder of the lumbar spine. IMPRESSION: Nonspecific abdominal findings. ACT 112: Negative or not required by law. The above report was generated using voice recognition software. It may contain grammatical, syntax o r spelling errors. Electronically signed by: Kesha Tejeda M.D. 12/25/2024 1:46 PM
--- NOTE | 2024-12-25 16:06 | Hospitalist Progress Note ---
Date of Service December 25, 2024 Assessment & Plan (1) Bacteremia: (2) Lumbar surgical wound fluid collection: (3) Prediabetes: (4) CKD (chronic kidney disease), stage III: (5) Sleep apnea: (6) BPH (benign prostatic hyperplasia): (7) Hypothyroidism: (8) Gout: Plan Patient is a 79 y/o male with hypothyroidism, prediabetes, gout, ANGELA, mood disorder and other medical history as outlined below who was transferred from [facility] today with bacteremia and post-operative fluid collection. Today / blood cultures positive for GPC, pt has been on vancomycin and Zosyn since yesterday. Spoke with Dr. Gonzalez, hospitalist at [facility] to get report. Records from admission there were extensively reviewed. Final identification of organism is still pending. We have been consulted for medical management. Lumbar epidural abscess--POA Post-operative fluid collection Bacteremia - / positive blood cultures for GPC, final ID pending at [facility] --S/P irrigation debridement lumbar spine by Dr. Claros on 12/24/2024 --Repeat blood cultures: Negative to date -- Wound culture: Pending --Continue empiric vancomycin and Zosyn for now -Will consult ID when appropriate --Requested blood culture results from [facility] Severe back pain due to #1 - Pain control and activity per primary team Pain control as needed Constipation KUB showed no signs of obstruction Continue bowel regimen Encouraged to ambulate Prediabetes Last HbA1c 6.0 -Diabetic diet -Insulin sliding scale Gout -Chronic, stable - continue allopurinol ANGELA - does not use CPAP at home but will to use while admitted -CPAP at per protocol CKD III Baseline creatinine 1.4 Creatinine at baseline Monitor renal function Hyperlipidemia - Chronic, stable - continue statin BPH - having difficulty with urgency, trouble using the urinal with resultant incontinence - Continue tamsulosin Monitor for retention Bladder scan as needed GERD - Chronic, stable - continue daily PPI Hypothyroidism - Chronic, stable - continue levothyroxine DVT Px: As per primary team Code Status Full Code Admission and Anticipated Discharge Date Admission Date: December 23, 2024 Subjective Patient is seen and examined at bedside States having back pain at surgical site sometimes radiates down right leg Also reports constipation today Denies any nausea, vomiting, chest pain, dyspnea No other complaints today Review of Systems Review of Systems: All systems reviewed & are unremarkable except as noted in Subjective Physical Exam Physical Exam: Physical Exam: Vitals signs as noted above General Appearance:Obese, no apparent distress Head: normocephalic, Atraumatic Eyes: normal inspection, EOMI Neck: supple, Trachea midline Respiratory/Chest: Normal breath sounds, CTA, No accessory muscle use Cardiovascular: S1, S2, No murmur Abdomen/GI:Soft, Non tender, Bowel sounds present Back:Surgical site in dressing Extremities/Musculoskeletal:normal inspection, no edema Neurologic/Psych:AAOX3, grossly no focal neurological deficits Skin: normal color, warm Results & Data Results & Data Vital Signs (Past 12 Hours) Vital Signs Temp Pulse Pulse Resp BP BP Pulse Ox 12/25/24 15:19 36.9 C 76 18 141/73 H 97 12/25/24 08:00 12/25/24 07:17 36.6 C 75 18 143/72 H 95 12/25/24 05:05 36.5 C 72 115/66 95 O2 Del Method 12/25/24 15:19 Room Air 12/25/24 08:00 Room Air 12/25/24 07:17 Room Air 12/25/24 05:05 Room Air Laboratory Results Short CBC 12/25/24 Range/Units 07:49 WBC 13.64 H (4.8-10.8) K/ul Hgb 10.7 L (14.0-18.0) g/dl Hct 32.5 L (42.0-52.0) % Plt Count 361 (130-400) K/uL BMP 12/25/24 07:49 Sodium 136 Potassium 5.0 Chloride 102 Carbon Dioxide 30 BUN 25 H Creatinine 1.20 Glucose 143 H Calcium 9.1 (2) Lumbar surgical wound fluid collection Encounter type: initial encounter Qualified Code(s): T81.89XA - Other complications of procedures, not elsewhere classified, initial encounter (4) CKD (chronic kidney disease), stage III Chronic kidney disease stage 3 subtype: unspecified whether 3a or 3b Qualified Code(s): N18.30 - Chronic kidney disease, stage 3 unspecified (5) Sleep apnea Sleep apnea type: obstructive Qualified Code(s): G47.33 - Obstructive sleep apnea (adult) (pediatric) (6) BPH (benign prostatic hyperplasia) Lower urinary tract symptom presence: symptoms present Lower urinary tract symptom detail: unspecified Qualified Code(s): N40.1 - Benign prostatic hyperplasia with lower urinary tract symptoms (7) Hypothyroidism Hypothyroidism type: unspecified Qualified Code(s): E03.9 - Hypothyroidism, unspecified
[2024-12-25] MEDS: diphenhydrAMINE Capsule 25 MG CAP PO PRN (21:46)
[2024-12-26 07:05] LABS: Basophils # (auto) 0.04 K/uL (0.00-0.20); Basophils % (auto) 0.4 %; Eosinophils # (auto) 0.11 K/uL (0.00-0.50); Hematocrit (blood only) 35.2 % (42.0-52.0); Hemoglobin 11.7 g/dl (14.0-18.0); Immature Granulocytes # (auto) 0.38 K/uL (0.01-0.20); Immature Granulocytes % (auto) 3.4 %; Lymphocytes # (auto) 1.42 K/uL (1.20-3.40); Lymphocytes % (auto) 12.6 %; Mean Corpuscular Hemoglobin 32.1 pg (25.0-34.0); Mean Corpuscular Hgb Conc 33.2 g/dL (32.0-36.0); Mean Corpuscular Volume 96.4 fL (80.0-100.0); Mean Platelet Volume 9.4 fL (9.4-12.4); Monocytes # (auto) 0.83 K/uL (0.11-0.59); Monocytes % (auto) 7.4 %; Neutrophils # (auto) 8.51 K/uL (1.40-6.50); Neutrophils % (auto) 75.2 %; Platelet Count 423 K/uL (130-400); RDW Coefficient of Variation 13.1 % (11.5-14.5); RDW Standard Deviation 46.4 fL (36.4-46.3); Red Blood Count 3.65 M/uL (4.70-6.10); White Blood Count 11.29 K/ul (4.8-10.8)
[2024-12-26 07:28] LABS: BUN Creatinine Ratio 20.9 (10-20); Calcium 9.4 mg/dl (8.6-10.3); Potassium 4.4 mmol/L (3.5-5.1)
--- NOTE | 2024-12-26 08:15 | Hospitalist Progress Note ---
Date of Service December 26, 2024 Assessment & Plan (1) Bacteremia: (2) Lumbar surgical wound fluid collection: (3) Prediabetes: (4) CKD (chronic kidney disease), stage III: (5) Sleep apnea: (6) BPH (benign prostatic hyperplasia): (7) Hypothyroidism: (8) Gout: Plan 79 year old male with PMH significant for CKD III, hyperlipidemia, BPH, hypothyroidism, prediabetes, gout, and ANGELA who was transferred from [facility] on 12/24 with bacteremia and post-operative fluid collection. We have been consulted for medical management. Lumbar epidural abscess Post-operative fluid collection S/P irrigation debridement lumbar spine by Dr. Claros on 12/24/2024 Wound culture prelim staph epidermidis Post op management per primary team including pain control, activity level, drain management Continue PT/OT - recommending rehab Bacteremia as detailed below Bacteremia Received records from [facility] with blood cultures positive for staph epidermis with sensitivities Repeat blood cultures here on 12/23 with [facility] Infectious disease consulted and evaluated patient with recs: -Rifampin 300mg PO bid given hardware, but he is also on sertraline will need to discuss risks/benefits of addition of rifampin (interaction will lower the effects of sertraline) -Dc vancomycin and zosyn -Daptomycin 8-10mg/kg IV daily (AdjBW 90kg, CPK 95, CrCl > 30) -Hold statin -6 weeks of PO and IV abx (start 12/24, end 02/04) -Following IV abx, he will need PO suppression for at least 1 year (options include doxycycline or bactrim) - after 12 months, extension of suppression for the life of the retained hardware to be considered, based on specific case, after risk/benefit discussion with the patient -Monitor weekly CBC w diff, BMP, LFTs, ESR, CRP while on IV abx Constipation KUB showed no signs of obstruction Continue bowel regimen Encouraged to ambulate Prediabetes Last HbA1c 6.0 Diabetic diet Insulin sliding scale Gout Continue allopurinol per home dosing ANGELA CPAP at per protocol CKD III Baseline creatinine 1.4 Creatinine at baseline Monitor renal function Hyperlipidemia Holding statin while on daptomycin per ID recs BPH Continue tamsulosin per home dosing Monitor for retention Bladder scan as needed GERD Continue omeprazole per home dosing Hypothyroidism Continue levothyroxine per home dosing Thank you for this consultation. We will continue to follow this patient with you. [facility] via the role in [employer] - please don't hesitate to reach out with questions. Patient seen in collaboration with Dr Chiu. Please see addendum. I spent a total of 60 minutes coordinating, documenting and providing care for this patient excluding time spent in the performance of separately billed services or time spent by another provider/QHP. Admission and Anticipated Discharge Date Admission Date: December 23, 2024 Supervising Physician Co-Signing Physician Notes Patient is seen and examined at bedside. Back pain at surgical site is controlled. Had PT evaluation earlier today. Reports no bowel movement today. Offers no other complaints today Physical Exam: Vitals signs as noted above General Appearance:Obese, no apparent distress Head: normocephalic, Atraumatic Eyes: normal inspection, EOMI Neck: supple, Trachea midline Respiratory/Chest: Normal breath sounds, CTA, No accessory muscle use Cardiovascular: S1, S2, No murmur Abdomen/GI:Soft, Non tender, Bowel sounds present Back:Surgical site in dressing Extremities/Musculoskeletal:normal inspection, no edema Neurologic/Psych:AAOX3, grossly no focal neurological deficits Skin: normal color, warm Lumbar epidural abscess Staph epidermidis bacteremia S/P irrigation debridement lumbar spine by Dr. Claros on 12/24/2024 Blood cultures from [facility] grew Staph epidermidis Repeat blood cultures negative to date Wound culture growing Staph epidermidis Appreciate orthospine, ID input Vancomycin, Zosyn discontinued Continue IV daptomycin, rifampin to complete 6-week course. Last date of antibiotics 02/04/2025 Needs chronic suppressive therapy after completion of IV antibiotic course per ID. Needs weekly blood work while on antibiotics Will place PICC line as able Hold statin while on daptomycin I personally interviewed and examined the patient at bedside. I have reviewed the advanced practitioner's documentation on the date of service referred in note and agree with plan. Patient's care is coordinated with Destini SILVER. Please refer to the documentation above for details of patient's presentation and for discussion of other issues. I spent a total [id number] coordinating, documenting, and providing care for this patient excluding time spent in the performance of separately billed services or time spent by another provider/QHP. Subjective Patient seen sitting up in the chair Reports back pain as he just worked with PT Denies chest pain, SOB, abdominal pain, N/V/D Passing gas but no bowel movement yet Review of Systems Review of Systems: All systems reviewed & are unremarkable except as noted in Subjective Physical Exam Physical Exam: Gen/Psych: WD/WN, sitting up in chair, appears uncomfortable, A&Ox3 HEENT: Normocephalic, atraumatic, conjunctivae pink, sclerae anicteric, mucous membranes moist Lung: Clear to auscultation bilaterally, no wheezes/rales/rhonchi Heart: Regular rate and rhythm, no murmurs/rubs/gallops Extremities: Normal peripheral pulses, no edema Abdomen: Soft, NT, ND, +BS x 4 Skin: Warm and dry, no rash, island dressing c/d/i, ERON drains in place Results & Data Results & Data Vital Signs (Past 12 Hours) Vital Signs Temp Pulse Pulse Resp BP Pulse Ox O2 Del Method 12/26/24 07:56 Room Air 12/26/24 07:38 36.6 C 61 18 134/75 98 Room Air 12/25/24 21:15 Room Air 12/25/24 21:13 36.6 C 74 18 145/78 H 94 Room Air Laboratory Results Short CBC 12/25/24 12/26/24 Range/Units 07:49 06:14 WBC 13.64 H 11.29 H (4.8-10.8) K/ul Hgb 10.7 L 11.7 L (14.0-18.0) g/dl Hct 32.5 L 35.2 L (42.0-52.0) % Plt Count 361 423 H (130-400) K/uL BMP 12/25/24 12/26/24 07:49 06:14 Sodium 136 136 Potassium 5.0 4.4 Chloride 102 100 Carbon Dioxide 30 28 BUN 25 H 27 H Creatinine 1.20 1.29 Glucose 143 H 101 H Calcium 9.1 9.4 I have independently reviewed and interpreted patient's labs including CBC and BMP. Medications Administered Current Inpatient Medications Acetaminophen (Acetaminophen 500 Mg Tab) 1,000 mg PO Q8H PRN PRN Reason: MILD Pain Scale 1,2,3 & Pre PT Stop: 01/23/25 14:43 Last Admin: 12/25/24 05:10 Dose: 1,000 mg Al Hydrox/Mg Hydrox/Simethicone (Aluminum/Magnesium Susp 30 Ml Udc) 30 ml PO Q6H PRN PRN Reason: Dyspepsia Stop: 01/23/25 14:43 Allopurinol (Allopurinol 100 Mg Tab) 100 mg PO QPM KATHERINE Stop: 01/22/25 20:59 Last Admin: 12/25/24 21:45 Dose: 100 mg Bisacodyl (Bisacodyl 10 Mg Supp) 10 mg DC DAILY PRN PRN Reason: Constipation Stop: 01/23/25 14:43 Diphenhydramine HCl (Diphenhydramine Capsule 25 Mg Cap) 25 mg PO Q6H PRN PRN Reason: Allergic Rhinitis/Insomnia Stop: 01/23/25 14:43 Last Admin: 12/25/24 21:46 Dose: 25 mg Famotidine (Famotidine 20 Mg Tab) 20 mg PO Q12H PRN PRN Reason: Dyspepsia Stop: 01/23/25 14:43 Hydromorphone HCl (Hydromorphone Inj 0.5 Mg/0.5 Ml Syr) 0.5 mg IV Q3H PRN PRN Reason: MOD pain (scale 4-6) & Pre PT Stop: 01/06/25 15:14 Last Admin: 12/26/24 10:11 Dose: 0.5 mg Hydromorphone HCl (Hydromorphone Inj 1 Mg/Ml Syringe) 1 mg IV Q3H PRN PRN Reason: severe pain (scale 7-10) Stop: 01/06/25 15:14 Last Admin: 12/23/24 21:36 Dose: 1 mg Hydroxyzine HCl (Hydroxyzine Hcl 25 Mg Tab) 25 mg PO Q8H PRN PRN Reason: Anxiety Stop: 01/23/25 14:43 Promethazine HCl (Phenergan) 12.5 mg in 50.5 mls @ 202 mls/hr IV Q6H PRN PRN Reason: Nausea And Vomiting Stop: 01/23/25 14:43 Daptomycin 800 mg/ Syringe 16 mls @ 8 mls/min IV Q24H KATHERINE; Protocol Stop: 02/06/25 13:59 Influenza Virus Vaccine Quadrival (Do Not Administer Flu Vaccine) 1 each N/A PRN PRN PRN Reason: Notification Stop: 01/23/25 14:43 Levothyroxine Sodium (Levothyroxine Sodium 25 Mcg Tablet) 25 mcg PO DAILYBB [facility] Stop: 01/23/25 06:29 Last Admin: 12/26/24 06:18 Dose: 25 mcg Lorazepam (Lorazepam 0.5 Mg Tab) 0.5 mg PO Q8H PRN PRN Reason: Sedation/Anxiety Stop: 01/23/25 14:43 Lorazepam (Lorazepam 2 Mg/1 Ml Vial) 0.5 mg IV Q8H PRN PRN Reason: Sedation/Anxiety Stop: 01/23/25 14:43 Magnesium Hydroxide (Magnesium Hydroxide Susp 30 Ml Udc) 30 ml PO Q24H PRN PRN Reason: Constipation Stop: 01/23/25 14:43 Metoclopramide HCl (Metoclopramide Hcl Inj 5 Mg/Ml 2 Ml Vial) 10 mg IV Q6H PRN PRN Reason: Nausea &/or Vomiting Stop: 01/23/25 14:43 Naloxone HCl (Naloxone Hcl 0.4 Mg/1 Ml Vial/Carp) 0.1 mg IV Q5M PRN PRN Reason: Oversedation/Resp depression Stop: 01/23/25 14:43 Ondansetron HCl (Ondansetron Inj 2 Mg/Ml 2 Ml Vial) 4 mg IV Q6H PRN PRN Reason: Nausea &/or Vomiting Stop: 01/23/25 14:43 Ondansetron HCl (Ondansetron 4 Mg Od Tab) 4 mg PO Q6H PRN PRN Reason: Nausea Stop: 01/23/25 14:43 Oxycodone HCl (Oxycodone Hcl Ir 5 Mg Tab (Immediate Release)) 5 - 10 mg PO Q4H PRN PRN Reason: mod to severe pain Stop: 01/06/25 15:14 Last Admin: 12/26/24 06:45 Dose: 10 mg Pantoprazole Sodium (Pantoprazole 40 Mg Tab) 40 mg PO QAM [facility] Stop: 01/23/25 08:59 Last Admin: 12/26/24 08:13 Dose: 40 mg Pneumococcal Polyvalent Vaccine (Do Not Administer Pneumococcal Vaccine) 1 each N/A PRN PRN PRN Reason: Notification Stop: 01/23/25 14:43 Polyethylene Glycol (Polyethylene (Miralax) 17 Gm Pack) 17 gm PO Q6 [facility] Stop: 01/24/25 05:59 Last Admin: 12/26/24 13:47 Dose: 17 gm Senna/Docusate Sodium (Docusate Sodium/Senna 50/8.6mg Tab) 2 tab PO HS KATHERINE Stop: 01/23/25 20:59 Last Admin: 12/25/24 21:46 Dose: 2 tab Sertraline HCl (Sertraline Hcl 100 Mg Tablet) 100 mg PO QPM KATHERINE Stop: 01/22/25 20:59 Last Admin: 12/25/24 21:46 Dose: 100 mg Simvastatin (Simvastatin 20 Mg Tab) 20 mg PO HS KATHERINE Stop: 01/22/25 20:59 Last Admin: 12/25/24 21:46 Dose: 20 mg Sodium Biphosphate/Sodium Phosphate (Sod Phosphate/Sod Biphosphate Enema 132 Ml Btl) 132 ml DC ONE PRN PRN Reason: Constipation Stop: 01/23/25 14:43 Tamsulosin HCl (Tamsulosin Hcl 0.4 Mg Cap) 0.8 mg PO QPM KATHERINE Stop: 01/22/25 20:59 Last Admin: 12/25/24 21:45 Dose: 0.8 mg (2) Lumbar surgical wound fluid collection Encounter type: initial encounter Qualified Code(s): T81.89XA - Other complications of procedures, not elsewhere classified, initial encounter (4) CKD (chronic kidney disease), stage III Chronic kidney disease stage 3 subtype: unspecified whether 3a or 3b Qualified Code(s): N18.30 - Chronic kidney disease, stage 3 unspecified (5) Sleep apnea Sleep apnea type: obstructive Qualified Code(s): G47.33 - Obstructive sleep apnea (adult) (pediatric) (6) BPH (benign prostatic hyperplasia) Lower urinary tract symptom detail: unspecified Lower urinary tract symptom presence: symptoms present Qualified Code(s): N40.1 - Benign prostatic hyperplasia with lower urinary tract symptoms (7) Hypothyroidism Hypothyroidism type: unspecified Qualified Code(s): E03.9 - Hypothyroidism, unspecified
--- NOTE | 2024-12-26 08:40 | Orthopedic Progress Note ---
Date of Service December 26, 2024 Assessment & Plan (1) Bacteremia: Plan: Esvin is postoperative day 2 status post I&D infection of lumbar spine. Currently on IV vancomycin and Zosyn. Will have to consult infectious disease for subsequent PICC placement and continued antibiotic recommendations. Disposition will be to rehab upon discharge. Continue with ambulation. Continue with pain control. Maintain ERON drains x 2 Admission and Anticipated Discharge Date Admission Date: December 23, 2024 Subjective Esvin is postoperative day 2 status post I&D lumbar spine with infection. He is on IV vancomycin and Zosyn. ERON drain output #1 last output is 10 cc. ERON drain output #2 last shift is 20 cc. Yesterday in physical therapy Amling 100 feet. So far postoperative wound and blood cultures are no growth to date. [facility] Biggest complaint is lower back pain this morning Review of Systems Review of Systems: All systems reviewed & are unremarkable except as noted in HPI & below Physical Exam Physical Exam: He sitting up in bed eating breakfast in no acute distress Alert and oriented x 3 Lumbar dressing is clean dry intact with functioning ERON drain x 2 strength is intact bilateral lower extremities Results & Data Vital Signs (Past 12 Hours) Vital Signs Temp Pulse Pulse Resp BP Pulse Ox O2 Del Method 12/26/24 07:56 Room Air 12/26/24 07:38 36.6 C 61 18 134/75 98 Room Air 12/25/24 21:15 Room Air 12/25/24 21:13 36.6 C 74 18 145/78 H 94 Room Air
--- NOTE | 2024-12-26 11:40 | Infectious Disease Consult ---
Date of Consultation December 26, 2024 Assessment & Plan (1) Lumbar surgical wound fluid collection: (2) Staphylococcus epidermidis bacteremia: (3) S/P spinal surgery: Plan 79yo M with h/o ANGELA, hypothyroidism, prediabetes, mood d/o, CKD III, BPH w LUTS, HLD, recent admission 12/11-12/15 for elective spinal surgery, underwent lumbar decompression with bl medial facetectomies and foraminotomies L3-L5, excision of extradural mass left of L4-L5, spinal fusion L4-L5 on 12/11 who presented on 12/23 from [facility] with bacteremia and postop fluid collection. On 12/19, he presented to ED at [facility] with severe lower back pain. MRI showed a fluid collection at L3- L5, hematoma vs. seroma vs. infection. Blood cultures 1 of 4 came back positive for GPC so vancomycin and Zosyn were initiated on 12/22. On 12/23, 4 of 4 blood cultures were positive for GPC and CRP increased to 15.3 with corresponding in crease in pain so patient was transferred to [facility]. On admission at [facility], he was afebrile, vss. Initial labs with WBC 12.25, Cr 1.20. LFT wnl. CRP 20.95. He was started on vancomycin and zosyn. S/p OR on 12/24 and underwent I+D of lumbar spine (per op note, evidence of hematoma and beginnings of purulence; fascia was released and significant amounts of hematoma under pressure was noted). ID consulted 12/26. OSH BCX with [facility]SE. I spoke to [facility] and they said the BCx have Staph epidermidis thats oxacillin resistant, vanc sensitive (including sensitive to tetracycline, Bactrim, rifampin). They do not run daptomycin sensitivities. I stopped zosyn. Will change abx to daptomycin. # Lumbar spinal infection s/p I+D 12/24 OR cx with Staph epi # Methicillin-resistant Staph epidermidis bacteremia ngtd 12/23 # Recent lumbar decompression and spinal fusion on 12/11/24 # Mood d/o on sertraline # HLD on statin - we should start rifampin 300mg PO bid given hardware, but he is also on s ertraline will need to discuss risks/benefits of addition of rifampin (interaction will lower the effects of sertraline) - Lizett stopped vancomycin and zosyn - I started daptomycin 8-10mg/kg IV daily (AdjBW 90kg, CPK 95, CrCl > 30) - Lizett held statin - he will need 6 weeks of IV abx (start 12/24, end 02/04) - following IV abx, he will need PO suppression for at least 1 year (options include doxycycline or bactrim) - after 12 months, extension of suppression for the life of the retained hardware to be considered, based on specific case, after risk/benefit discussion with the patient - monitor weekly CBC w diff, BMP, LFTs, ESR, CRP while on IV abx Will continue to follow. If questions or concerns, contact via TigerText or Infectious Disease Call Center . Lucy Chowdhury MD [facility], Division of Infectious Diseases IDConnect: [phone] Consultation Information Consultation was provided via telemedicine using two-way real-time interactive telecommunication between the patient and the telemedicine provider. For the duration of the visit, the provider was performing the assessment from a different facility than the patient. This includesuse of bluetooth stethoscope forauscultationperformed by the telepresenter that the telemedicine provider can hear if described in the physical exam. Manager Web contact information: Please call ID Connect Call Center . (Phone Number For Physician Use Only) After establishing a telemedicine visit, patient was: Patient was verified with two unique identifiers, Patient/authorized rep acknowledged consent and understanding and Gave permission to continue telehealth session Time Spent with Patient: Initial => 75 min History of Present Illness Reason for Consultation: post op lumbar infection Attending Physician: Karan Claros, DO History of Present Illness 79yo M with h/o ANGELA, hypothyroidism, prediabetes, mood d/o, CKD III, BPH w LUTS, recent admission 12/11-12/15 for elective spinal surgery, underwent lumbar decompression with bl medial facetectomies and foraminotomies L3-L5, excision of extradural mass left of L4-L5, spinal fusion L4-L5 on 12/11 who presented on 12/23 from [facility] with bacteremia and postop fluid collection. He was doing well postop. On 12/19, he presented to ED at [facility] with severe lower back pain. MRI showed a fluid collection at L3-L5, hematoma vs. seroma vs. infection. Blood cultures 1 of 4 came back positive for GPC so vancomycin and Zosyn were initiated on 12/22. On 12/23, 4 of 4 blood cultures were positive for GPC and CRP increased to 15.3 with corresponding increase in pain so patient was transferred to [facility]. He reported having significant pain when he was discharged from [facility] that only worsened when he was at home. Describes the pain as being localized to his lower back without radiation to legs, no numbness or tingling. Denies chest pain, fevers, chills, N/V/D, SOB, abdominal pain. Having urinary urgency but denies dysuria or hematuria. On admission, he was afebrile, vss. Initial labs with WBC 12.25, Cr 1.20. LFT wnl. CRP 20.95. He was started on vancomycin and z osyn. S/p OR on 12/24 and underwent I+D of lumbar spine (per op note, evidence of hematoma and beginnings of purulence; fascia was released and significant amounts of hematoma under pressure was noted). ID consulted 12/26. OSH BCX with [facility]. On evaluation, patient reports having back pain. He denies having any fevers/chills at home. He does have bilateral hip and knee replacements as well as hardware in his left shoulder. No issues at these sites except he noticed increased pain on his right hip and knee since the issues with his back pain started. No swelling or redness. No cardiac devices or artificial heart valves. No rashes. No chest pain, shortness of breath. No vomiting or diarrhea. Allergies Allergy/AdvReac Type Severity Reaction Status Date / Time adhesive tape Allergy Unknown Skin Verified 12/11/24 08:31 irritation Home Medications Medication Instructions Recorded Confirmed Type allopurinol 100 mg tablet 100 mg PO QPM 05/16/19 12/23/24 History coQ10 (ubiquinol) 100 mg capsule 100 mg PO QPM 05/16/19 12/23/24 History omeprazole 20 mg capsule,delayed 20 mg PO HS 05/16/19 12/23/24 History release sertraline 100 mg tablet 100 mg PO QPM 05/16/19 12/23/24 History simvastatin 20 mg tablet 20 mg PO HS 05/16/19 12/23/24 History tamsulosin 0.4 mg capsule 0.8 mg PO QPM 05/16/19 12/23/24 History turmeric root extract 500 mg 500 mg PO QPM 05/16/19 12/23/24 History capsule acetaminophen 500 mg tablet 500 mg PO Q6H #60 tabs 05/30/19 12/23/24 Rx (Tylenol Extra Strength) aspirin 325 mg tablet,delayed 325 mg PO DAILY #28 tabs 05/30/19 12/23/24 Rx release ibuprofen 600 mg tablet 600 mg PO Q6H #60 tabs 05/30/19 12/23/24 Rx levothyroxine 25 mcg tablet 25 mcg PO DAILY 12/11/24 12/23/24 History oxycodone 5 mg tablet 5 mg PO Q6H PRN pain #30 tabs 12/11/24 12/23/24 Rx tramadol 50 mg tablet 50 mg PO Q6H PRN pain, moderate 12/11/24 12/23/24 Rx #30 tabs Patient History Medical History Hypothyroidism Gout Obesity Arthritis BPH (benign prostatic hyperplasia) Hiatal hernia GERD (gastroesophageal reflux disease) Controlled Diabetes mellitus, type 2 Per records, patient denies Cancer Skin (s/p excision)- ?BCC vs. SCC Sleep apnea CPAP (non-compliant per pt) Hyperlipidemia Surgical History History of tooth extraction Hx of removal of cyst 3 from back area removed in Aug 2024 History of left shoulder replacement Left reverse shoulder arthroplasty (05/30/19): "Pt with poor view with MAC 4, easy mask. Short neck. Glidescope #3 used without difficulty" Hx of colonoscopy History of repair of rotator cuff Left History of total knee replacement R/L History of total hip arthroplasty R/L Hemorrhoids Removal History of herniorrhaphy Multiple History of tonsillectomy Fusion of spine (1995) 5-6 pt thinks > Cervical rods (r/t cervical fracture) limited ROM all direct ions History of bowel resection R/t perforation with colostomy > reversal colostomy Social History Smoking Status: Former smoker Tobacco Type: Cigarettes Second Hand Exposure: No; Do You Dip or Chew Tobacco: No; Tobacco Cessation Education Requested by Patient: No Hx Alcohol Use: No Hx Substance Use: No Preferred Language: Prydeinig Communication Ability: Effective Brass Polisher Required: No Beliefs That Will Affect Care: None marital status: Current Living Situation: Spouse Other Information That Helps Us Care for You: No Feels Safe at Home: Yes Safety Concerns: Feels Safe At This Time Assistive Devices: Cane and Walker Review of System 10-point review of systems reviewed and are negative except for as above. Physical Exam Physical Exam: General: Awake, alert, no acute distress HEENT: NC/AT, EOMI, mmm Neck: supple Lungs: respirations non-labored Heart: nl peripheral perfusion Abdomen: soft, NT/ND Back: postop dressing, drain with serosanguinous drainage Ext: no LE edema, right knee without erythema or swelling, nontender, right hip without tenderness Skin: no rash Neuro: moving all extremities Results & Data Vital Signs (Past 12 Hours) Vital Signs Temp Pulse Resp BP Pulse Ox O2 Del Method 12/26/24 07:56 Room Air 12/26/24 07:38 36.6 C 61 18 134/75 98 Room Air Laboratory Results Labs reviewed. Diagnostic Findings Imaging reviewed. (1) Lumbar surgical wound fluid collection Encounter type: initial encounter Qualified Code(s): T81.89XA - Other complications of procedures, not elsewhere classified, initial encounter
[2024-12-26] MEDS: DAPTOmycin 800 MG in SYRINGE 0 ML IV SCH (14:38)
[2024-12-26] MEDS: rifAMPin 300 MG CAPSULE PO SCH (21:38)
[2024-12-27 07:27] LABS: Hematocrit (blood only) 33.7 % (42.0-52.0); Mean Corpuscular Hemoglobin 31.8 pg (25.0-34.0); Mean Corpuscular Hgb Conc 32.6 g/dL (32.0-36.0); Mean Corpuscular Volume 97.4 fL (80.0-100.0); Mean Platelet Volume 9.3 fL (9.4-12.4); Platelet Count 414 K/uL (130-400); RDW Coefficient of Variation 13.1 % (11.5-14.5); RDW Standard Deviation 46.5 fL (36.4-46.3); Red Blood Count 3.46 M/uL (4.70-6.10)
[2024-12-27 07:45] LABS: BUN Creatinine Ratio 21.1 (10-20); Calcium 9.3 mg/dl (8.6-10.3); Creatinine Clr Calc Pharmacy 59.4 ml/min; Potassium 4.3 mmol/L (3.5-5.1)
--- NOTE | 2024-12-27 07:51 | Hospitalist Progress Note ---
Date of Service December 27, 2024 Assessment & Plan (1) Bacteremia: (2) Lumbar surgical wound fluid collection: (3) Prediabetes: (4) CKD (chronic kidney disease), stage III: (5) Sleep apnea: (6) BPH (benign prostatic hyperplasia): (7) Hypothyroidism: (8) Gout: Plan 79 year old male with PMH significant for CKD III, hyperlipidemia, BPH, hypothyroidism, prediabetes, gout, and ANGELA who was transferred from [facility] on 12/24 with bacteremia and post-operative fluid collection. We have been consulted for medical management. Lumbar epidural abscess Post-operative fluid collection S/P irrigation debridement lumbar spine by Dr. Claros on 12/24/2024 Wound culture positive for staph epidermidis Post op management per primary team including pain control, activity level, drain management Continue PT/OT - recommending rehab Bacteremia as detailed below Bacteremia Received records from [facility] with blood cultures positive for staph epidermis with sensitivities Repeat blood cultures here on 12/23 with prelim NGTD Infectious disease consulted and evaluated patient with recs: -Rifampin 300mg PO bid given hardware - discussed risks/benefits of interaction with sertraline (will lower the effects) -Dc vancomycin and zosyn -Daptomycin 8-10mg/kg IV daily (AdjBW 90kg, CPK 95, CrCl > 30) -Hold statin -6 weeks of PO and IV abx (start 12/24, end 02/04) -Following IV abx, he will need PO suppression for at least 1 year (options include doxycycline or bactrim) - after 12 months, extension of suppression for the life of the retained hardware to be considered, based on specific case, after risk/benefit discussion with the patient -Monitor weekly CBC w diff, BMP, LFTs, ESR, CRP while on IV abx PICC line consent obtained and ordered 12/27 Prediabetes Last HbA1c 6.0 Diabetic diet Insulin sliding scale Gout Continue allopurinol per home dosing ANGELA CPAP at per protocol CKD III Baseline creatinine 1.4 Creatinine at baseline Monitor renal function Hyperlipidemia Holding statin while on daptomycin per ID recs BPH Continue tamsulosin per home dosing Monitor for retention Bladder scan as needed GERD Continue omeprazole per home dosing Hypothyroidism Continue levothyroxine per home dosing Thank you for this consultation. We will continue to follow this patient with you. A member of the [facility] Hospitalist team is available 06/03 via the role in TigerText - please don't hesitate to reach out with questions. Patient seen in collaboration with Dr Chiu. Please see addendum. I spent a total of 60 minutes coordinating, documenting and providing care for this patient excluding time spent in the performance of separately billed services or time spent by another provider/QHP. Admission and Anticipated Discharge Date Admission Date: December 23, 2024 Supervising Physician Co-Signing Physician Notes Patient is seen and examined at bedside. Constipation resolved Still has back pain at surgical site Was able to sleep better since hospitalization per patient No other new complaints today Physical Exam: Vitals signs as noted above General Appearance:Obese, no apparent distress Head: normocephalic, Atraumatic Eyes: normal inspection, EOMI Neck: supple, Trachea midline Respiratory/Chest: Normal breath sounds, CTA, No accessory muscle use Cardiovascular: S1, S2, No murmur Abdomen/GI:Soft, Non tender, Bowel sounds present Back:Surgical site in dressing Extremities/Musculoskeletal:normal inspection, no edema Neurologic/Psych:AAOX3, grossly no focal neurological deficits Skin: normal color, warm Lumbar epidural abscess Staph epidermidis bacteremia S/P irrigation debridement lumbar spine by Dr. Claros on 12/24/2024 Blood cultures from [facility] grew Staph epidermidis Wound culture growing Staph epidermidis Appreciate orthospine, ID input Vancomycin, Zosyn discontinued Continue IV daptomycin, rifampin to complete 6-week course. Last date of antibiotics 02/04/2025 Needs chronic suppressive therapy after completion of IV antibiotic course per ID. Needs weekly blood work while on antibiotics Plan for PICC line placement today Hold statin while on daptomycin Leukocytosis resolved Blood cultures remain negative to date Patient needs follow-up with outpatient infectious disease on discharge I personally interviewed and examined the patient at bedside. I have reviewed the advanced practitioner's documentation on the date of service referred in note and agree with plan. Patient's care is coordinated with Destini SILVER. Please refer to the documentation above for details of patient's presentation and for discussion of other issues. I spent a total [id number] coordinating, documenting, and providing care for this patient excluding time spent in the performance of separately billed services or time spent by another provider/QHP. Subjective Patient seen laying in bed Reports 6/10 back pain that radiates into his buttocks Pain is worsened by movement States he forgets to ask for pain medicine Denies chest pain, SOB, abdominal pain, N/V, numbness/tingling of legs Having loose stools per nurse Review of Systems Review of Systems: All systems reviewed & are unremarkable except as noted in Subjective Physical Exam Physical Exam: Gen/Psych: WD/WN, laying in bed, appears uncomfortable, A&Ox3 HEENT: Normocephalic, atraumatic, conjunctivae pink, sclerae anicteric, mucous membranes moist Lung: Clear to auscultation bilaterally, no wheezes/rales/rhonchi Heart: Regular rate and rhythm, no murmurs/rubs/gallops Extremities: Normal peripheral pulses, no edema Abdomen: Soft, NT, ND, +BS x 4 Skin: Warm and dry, no rash, island dressing c/d/i, ERON drains in place Results & Data Results & Data Vital Signs (Past 12 Hours) Vital Signs Temp Pulse Resp BP Pulse Ox O2 Del Method 12/26/24 21:40 Room Air 12/26/24 21:22 36.9 C 83 17 134/66 99 Room Air Laboratory Results Short CBC 12/27/24 Range/Units 06:34 WBC 8.30 (4.8-10.8) K/ul Hgb 11.0 L (14.0-18.0) g/dl Hct 33.7 L (42.0-52.0) % Plt Count 414 H (130-400) K/uL BMP 12/27/24 06:34 Sodium 135 L Potassium 4.3 Chloride 100 Carbon Dioxide 27 BUN 27 H Creatinine 1.28 Glucose 137 H Calcium 9.3 I have independently reviewed and interpreted patient's admitting labs including CBC and BMP. Medications Administered Current Inpatient Medications Acetaminophen (Acetaminophen 500 Mg Tab) 1,000 mg PO Q8H PRN PRN Reason: MILD Pain Scale 1,2,3 & Pre PT Stop: 01/23/25 14:43 Last Admin: 12/27/24 08:03 Dose: 1,000 mg Al Hydrox/Mg Hydrox/Simethicone (Aluminum/Magnesium Susp 30 Ml Udc) 30 ml PO Q6H PRN PRN Reason: Dyspepsia Stop: 01/23/25 14:43 Allopurinol (Allopurinol 100 Mg Tab) 100 mg PO QPM [facility] Stop: 01/22/25 20:59 Last Admin: 12/26/24 21:38 Dose: 100 mg Bisacodyl (Bisacodyl 10 Mg Supp) 10 mg DC DAILY PRN PRN Reason: Constipation Stop: 01/23/25 14:43 Diphenhydramine HCl (Diphenhydramine Capsule 25 Mg Cap) 25 mg PO Q6H PRN PRN Reason: Allergic Rhinitis/Insomnia Stop: 01/23/25 14:43 Last Admin: 12/25/24 21:46 Dose: 25 mg Famotidine (Famotidine 20 Mg Tab) 20 mg PO Q12H PRN PRN Reason: Dyspepsia Stop: 01/23/25 14:43 Hydromorphone HCl (Hydromorphone Inj 0.5 Mg/0.5 Ml Syr) 0.5 mg IV Q3H PRN PRN Reason: MOD pain (scale 4-6) & Pre PT Stop: 01/06/25 15:14 Last Admin: 12/26/24 10:11 Dose: 0.5 mg Hydromorphone HCl (Hydromorphone Inj 1 Mg/Ml Syringe) 1 mg IV Q3H PRN PRN Reason: severe pain (scale 7-10) Stop: 01/06/25 15:14 Last Admin: 12/23/24 21:36 Dose: 1 mg Hydroxyzine HCl (Hydroxyzine Hcl 25 Mg Tab) 25 mg PO Q8H PRN PRN Reason: Anxiety Stop: 01/23/25 14:43 Promethazine HCl (Phenergan) 12.5 mg in 50.5 mls @ 202 mls/hr IV Q6H PRN PRN Reason: Nausea And Vomiting Stop: 01/23/25 14:43 Daptomycin 800 mg/ Syringe 16 mls @ 8 mls/min IV Q24H KATHERINE; Protocol Stop: 02/06/25 13:59 Last Admin: 12/26/24 14:38 Dose: 8 mls/min Influenza Virus Vaccine Quadrival (Do Not Administer Flu Vaccine) 1 each N/A P RN PRN PRN Reason: Notification Stop: 01/23/25 14:43 Levothyroxine Sodium (Levothyroxine Sodium 25 Mcg Tablet) 25 mcg PO DAILYBB KATHERINE Stop: 01/23/25 06:29 Last Admin: 12/27/24 05:36 Dose: 25 mcg Lorazepam (Lorazepam 0.5 Mg Tab) 0.5 mg PO Q8H PRN PRN Reason: Sedation/Anxiety Stop: 01/23/25 14:43 Lorazepam (Lorazepam 2 Mg/1 Ml Vial) 0.5 mg IV Q8H PRN PRN Reason: Sedation/Anxiety Stop: 01/23/25 14:43 Magnesium Hydroxide (Magnesium Hydroxide Susp 30 Ml Udc) 30 ml PO Q24H PRN PRN Reason: Constipation Stop: 01/23/25 14:43 Metoclopramide HCl (Metoclopramide Hcl Inj 5 Mg/Ml 2 Ml Vial) 10 mg IV Q6H PRN PRN Reason: Nausea &/or Vomiting Stop: 01/23/25 14:43 Naloxone HCl (Naloxone Hcl 0.4 Mg/1 Ml Vial/Carp) 0.1 mg IV Q5M PRN PRN Reason: Oversedation/Resp depression Stop: 01/23/25 14:43 Ondansetron HCl (Ondansetron Inj 2 Mg/Ml 2 Ml Vial) 4 mg IV Q6H PRN PRN Reason: Nausea &/or Vomiting Stop: 01/23/25 14:43 Ondansetron HCl (Ondansetron 4 Mg Od Tab) 4 mg PO Q6H PRN PRN Reason: Nausea Stop: 01/23/25 14:43 Oxycodone HCl (Oxycodone Hcl Ir 5 Mg Tab (Immediate Release)) 5 - 10 mg PO Q4H PRN PRN Reason: mod to severe pain Stop: 01/06/25 15:14 Last Admin: 12/27/24 10:01 Dose: 10 mg Oxycodone HCl (Oxycodone Hcl Ir 5 Mg Tab (Immediate Release)) 5 mg PO Q12 [facility] Stop: 01/10/25 20:59 Pantoprazole Sodium (Pantoprazole 40 Mg Tab) 40 mg PO QAM [facility] Stop: 01/23/25 08:59 Last Admin: 12/27/24 08:04 Dose: 40 mg Pneumococcal Polyvalent Vaccine (Do Not Administer Pneumococcal Vaccine) 1 each N/A PRN PRN PRN Reason: Notification Stop: 01/23/25 14:43 Rifampin (Rifampin 300 Mg Capsule) 300 mg PO BID [facility] Stop: 01/25/25 20:59 Last Admin: 12/27/24 08:04 Dose: 300 mg Senna/Docusate Sodium (Docusate Sodium/Senna 50/8.6mg Tab) 2 tab PO HS KATHERINE Stop: 01/23/25 20:59 Last Admin: 12/26/24 21:38 Dose: 2 tab Sertraline HCl (Sertraline Hcl 100 Mg Tablet) 100 mg PO QPM KATHERINE Stop: 01/22/25 20:59 Last Admin: 12/26/24 21:38 Dose: 100 mg Simvastatin (Simvastatin 20 Mg Tab) 20 mg PO HS KATHERINE Stop: 01/22/25 20:59 Last Admin: 12/25/24 21:46 Dose: 20 mg Sodium Biphosphate/Sodium Phosphate (Sod Phosphate/Sod Biphosphate Enema 132 Ml Btl) 132 ml DC ONE PRN PRN Reason: Constipation Stop: 01/23/25 14:43 Tamsulosin HCl (Tamsulosin Hcl 0.4 Mg Cap) 0.8 mg PO QPM KATHERINE Stop: 01/22/25 20:59 Last Admin: 12/26/24 21:38 Dose: 0.8 mg (2) Lumbar surgical wound fluid collection Encounter type: initial encounter Qualified Code(s): T81.89XA - Other complications of procedures, not elsewhere classified, initial encounter (4) CKD (chronic kidney disease), stage III Chronic kidney disease stage 3 subtype: unspecified whether 3a or 3b Qualified Code(s): N18.30 - Chronic kidney disease, stage 3 unspecified (5) Sleep apnea Sleep apnea type: obstructive Qualified Code(s): G47.33 - Obstructive sleep apnea (adult) (pediatric) (6) BPH (benign prostatic hyperplasia) Lower urinary tract symptom detail: unspecified Lower urinary tract symptom presence: symptoms present Qualified Code(s): N40.1 - Benign prostatic hyperplasia with lower urinary tract symptoms (7) Hypothyroidism Hypothyroidism type: unspecified Qualified Code(s): E03.9 - Hypothyroidism, unspecified
[2024-12-27 07:56] VITALS: RESP 18
--- NOTE | 2024-12-27 09:29 | Infectious Disease Progress Nt ---
Date of Service December 27, 2024 Assessment & Plan (1) Lumbar surgical wound fluid collection: (2) Staphylococcus epidermidis bacteremia: (3) S/P spinal surgery: Plan 79yo M with h/o ANGELA, hypothyroidism, prediabetes, mood d/o, CKD III, BPH w LUTS, HLD, recent admission 12/11-12/15 for elective spinal surgery, underwent lumbar decompression with bl medial facetectomies and foraminotomies L3-L5, excision of extradural mass left of L4-L5, spinal fusion L4-L5 on 12/11 who presented on 12/23 from [facility] with bacteremia and postop fluid collection. On 12/19, he presented to ED at [facility] with severe lower back pain. MRI showed a fluid collection at L3-L5, hematoma vs. seroma vs. infection. Blood cultures 1 of 4 came back positive for GPC so vancomycin and Zosyn were initiated on 12/22. On 12/23, 4 of 4 blood cultures were positive for GPC and CRP increased to 15.3 with corresponding increase in pain so patient was transferred to [facility]. On admission at [facility], he was afebrile, vss. Initial labs with WBC 12.25, Cr 1.20. LFT wnl. CRP 20.95. He was started on vancomycin and zosyn. S/p OR on 12/24 and underwent I+D of lumbar spine (per op note, evidence of hematoma and beginnings of purulence; fascia was released and significant amounts of hematoma under pressure was noted). OR cx with MRSE. ID consulted 12/26. OSH BCX also with MRSE (sensitive to vanc (GILDA 1), tetracycline, Bactrim, rifampin; they dont run dapto sensi). Micro 12/23 BCX: ngtd 12/24 OR cx (Back): MRSE (S-dapto, tetra, bactrim) Abx Zosyn 12/23-12/26 Vanc 12/23->Dapto 12/26-present # Lumbar spinal infection s/p I+D 12/24 OR cx with MRSE # Methicillin-resistant Staph epidermidis bacteremia ngtd 12/23 # Recent lumbar decompression and spinal fusion on 12/11/24 # Mood d/o on sertraline # HLD on statin - follow up on cultures from OR - continue rifampin 300mg PO bid for adjunctive Staph tx given hardware (interaction will lower the effects of sertraline needs monitoring/adjustments prn) - continue daptomycin 800mg IV daily (8-10mg/kg, AdjBW 90kg, CPK 95, CrCl > 30) - hold statin while on daptomycin Discharge plan: - continue daptomycin 800mg IV daily and rifampin 300mg PO bid x 6 weeks (start 12/24, end 02/04) - following above, he will need PO suppression (options include doxycycline or bactrim) for at least 1 year, ideally for life of retained hardware if tolerating well - monitor weekly CBC w diff, BMP, LFTs, ESR, CRP, CPK while on IV abx - needs outpatient ID follow up - outpatient monitoring of rifampin interaction with sertraline (lowers effects of sertraline) - statin may be resumed once he is off of daptomycin Will discontinue active follow up at this time. Please do not hesitate to reconsult the Infectious Diseases service as needed. Lucy Chowdhury MD [facility], Division of Infectious Diseases IDConnect: [phone] Admission and Anticipated Discharge Date Admission Date: December 23, 2024 Subjective This patient recommendation is based on a telemedicine consult request which was completed asynchronously through chart review and information provided by the primary physician. The patient was not seen or examined today. The evaluation is consultative in nature and all patient care and treatment decisions can either be accepted or rejected by the patient's primary hospital-based treating physici an using their own independent medical judgment for their patient. Time Spent Reviewing Chart: 31+ minutes Afebrile, WBC improved. Results & Data Vital Signs (Past 12 Hours) Vital Signs Temp Pulse Resp BP Pulse Ox O2 Del Method 12/27/24 07:55 36.7 C 56 L 18 134/77 97 Room Air 12/26/24 21:40 Room Air Laboratory Results Labs reviewed. (1) Lumbar surgical wound fluid collection Encounter type: initial encounter Qualified Code(s): T81.89XA - Other complications of procedures, not elsewhere classified, initial encounter
--- NOTE | 2024-12-27 10:26 | Orthopedic Progress Note ---
Date of Service December 27, 2024 Assessment & Plan (1) Staphylococcus epidermidis bacteremia: Plan: At this time he is having his PICC line placed. Will arrange for rehab when bed available. I will place him on a scheduled oxycodone 5 mg every 12 to help with his pain control. Admission and Anticipated Discharge Date Admission Date: December 23, 2024 Subjective Patient complaining mostly of back pain. Denies any leg pain. He has not been asking for his pain medications. He is tolerating physical therapy. Physical Exam Physical Exam: On exam he is in bed at this time. Skin strength testing. Results & Data Vital Signs (Past 12 Hours) Vital Signs Temp Pulse Resp BP Pulse Ox O2 Del Method 12/27/24 07:55 36.7 C 56 L 18 134/77 97 Room Air
[2024-12-27] MEDS: oxyCODONE HCL IR 5 MG TAB (IMMEDIATE RELEASE) PO SCH (21:19)
[2024-12-28 07:32] VITALS: BP 135/79; PULSE 80; TEMP 97.5; O2SAT 95
--- NOTE | 2024-12-28 10:03 | Orthopedic Progress Note ---
Date of Service December 28, 2024 Assessment & Plan (1) Staphylococcus epidermidis bacteremia: Plan: At this time we will continue physical therapy await for encompass placement. Admission and Anticipated Discharge Date Admission Date: December 23, 2024 Subjective Back pain is better controlled. Denies any leg pain. Physical Exam Physical Exam: Patient is currently in bed. He is neurologically intact. Results & Data Vital Signs (Past 12 Hours) Vital Signs Temp Pulse Resp BP Pulse Ox O2 Del Method 12/28/24 07:31 36.4 C L 80 18 135/79 95 Room Air 12/27/24 22:31 Room Air Queries Orthopedic Spine Obesity: Yes
--- NOTE | 2024-12-28 11:52 | Hospitalist Progress Note ---
Date of Service December 28, 2024 Assessment & Plan (1) Bacteremia: (2) Lumbar surgical wound fluid collection: (3) Prediabetes: (4) CKD (chronic kidney disease), stage III: (5) Sleep apnea: (6) BPH (benign prostatic hyperplasia): (7) Hypothyroidism: (8) Gout: Plan 79 year old male with PMH significant for CKD III, hyperlipidemia, BPH, hypothyroidism, prediabetes, gout, and ANGELA who was transferred from [facility] on 12/24 with bacteremia and post-operative fluid collection. We have been consulted for medical management. Lumbar epidural abscess Post-operative fluid collection S/P irrigation debridement lumbar spine by Dr. Claros on 12/24/2024 Wound culture positive for staph epidermidis Post op management per primary team including pain control, activity level, drain management Continue PT/OT - recommending rehab Plan to discharge to rehab facility as able Advised to follow-up with PCP, orthopedic spine and infectious disease on discharge Staph epidermidis bacteremia Received records from [facility] with blood cultures positive for staph epidermis with sensitivities Repeat blood cultures here on 12/23 with prelim NGTD Infectious disease consulted and evaluated patient with recs: -Rifampin 300mg PO bid given hardware - discussed risks/benefits of interaction with sertraline (will lower the effects) -Dc vancomycin and zosyn -Daptomycin 8-10mg/kg IV daily (AdjBW 90kg, CPK 95, CrCl > 30) -Hold statin while on daptomycin -6 weeks of PO and IV abx (start 12/24, end 02/04) -Following IV abx, he will need PO suppression for at least 1 year (options include doxycycline or bactrim) - after 12 months, extension of suppression for the life of the retained hardware to be considered, based on specific case, after risk/benefit discussion with the patient -Monitor weekly CBC w diff, BMP, LFTs, ESR, CRP while on IV abx PICC line placed Leukocytosis resolved Continue antibiotics as recommended by infectious disease Prediabetes Last HbA1c 6.0 Diabetic diet Insulin sliding scale Gout Continue allopurinol per home dosing ANGELA CPAP at HS per protocol CKD III Baseline creatinine 1.4 Creatinine at baseline Monitor renal function Hyperlipidemia Holding statin while on daptomycin BPH Continue tamsulosin per home dosing Monitor for retention Bladder scan as needed GERD Continue PPI Hypothyroidism Continue levothyroxine DVT Px: As per primary team CODE STATUS Full code Disposition Acute rehab Admission and Anticipated Discharge Date Admission Date: December 23, 2024 Subjective Patient is seen and examined at bedside. States having back pain at surgical site especially with activity Offers no other complaints today Denies any chest pain, dyspnea, nausea, vomiting, abdominal pain Plan to be discharged to rehab facility today Review of Systems Review of Systems: All systems reviewed & are unremarkable except as noted in Subjective Physical Exam Physical Exam: Physical Exam: Vitals signs as noted above General Appearance:Obese, no apparent distress Head: normocephalic, Atraumatic Eyes: normal inspection, EOMI Neck: supple, Trachea midline Respiratory/Chest: Normal breath sounds, CTA, No accessory muscle use Cardiovascular: S1, S2, No murmur Abdomen/GI:Soft, Non tender, Bowel sounds present Back:Surgical site in dressing,+Drain Extremities/Musculoskeletal:normal inspection, no edema Neurologic/Psych:AAOX3, grossly no focal neurological deficits Skin: normal color, warm Results & Data Results & Data Vital Signs (Past 12 Hours) Vital Signs Temp Pulse Resp BP Pulse Ox O2 Del Method 12/28/24 07:31 36.4 C L 80 18 135/79 95 Room Air (2) Lumbar surgical wound fluid collection Encounter type: initial encounter Qualified Code(s): T81.89XA - Other comp lications of procedures, not elsewhere classified, initial encounter (4) CKD (chronic kidney disease), stage III Chronic kidney disease stage 3 subtype: unspecified whether 3a or 3b Qualified Code(s): N18.30 - Chronic kidney disease, stage 3 unspecified (5) Sleep apnea Sleep apnea type: obstructive Qualified Code(s): G47.33 - Obstructive sleep apnea (adult) (pediatric) (6) BPH (benign prostatic hyperplasia) Lower urinary tract symptom detail: unspecified Lower urinary tract symptom presence: symptoms present Qualified Code(s): N40.1 - Benign prostatic hyperplasia with lower urinary tract symptoms (7) Hypothyroidism Hypothyroidism type: unspecified Qualified Code(s): E03.9 - Hypothyroidism, unspecified
== END 2024-12-28 14:10 | DRG 856 ==
LOC: 3W 15:01

== ENCOUNTER 2025-04-22 07:43 | Inpatient (IN) ==
--- NOTE | 2025-04-18 14:45 | Anesthesiology Consultation ---
Date of Service April 18, 2025 Assessment & Plan (1) Encounter for pre-operative examination: Plan - check BSG am DOS. - s/p I&D lumbar spine 12/24/24 [facility] Grade 1 view, Green 2, ETT 7.5. - difficult intubation: Left reverse shoulder arthroplasty (05/30/19): "Pt with poor view with MAC 4, easy mask. Short neck. Glidescope #3 used without difficulty" - Per manager of customer billing on 04/18/25: No known infectious disease contacts, current infectious disease symptoms in past 10 days or COVID positive test result in the past 30 days. Chart Review Chart Review: Acceptable Risk for Surgery and Patient NOT seen in Pre Admission Testing History Surgery Operation Date: 04/22/25 09:30 Proposed Procedures p Revision Foraminotomies L4-L5 Bilaterally, Possible Extension of Instrumented Fusion L2-S1, Hardware Removal L4-L5 - Karan Claros DO s Possible Kyphoplasty L4 and L5 - Karan Claros DO Height/Weight Height: 5 ft 10.5 in Weight: 113.398 kg Allergies Allergy/AdvReac Type Severity Reaction Status Date / Time adhesive tape Allergy Unknown Skin Verified 04/18/25 13:36 irritation No Known Drug Allergies Allergy Unknown Verified 04/18/25 13:36 Medications Home Medications Medication Instructions Recorded Confirmed Last Taken allopurinol 100 mg tablet 100 mg PO QPM 05/16/19 04/18/25 12/10/24 21:00 coQ10 (ubiquinol) 100 mg capsule 100 mg PO QPM 05/16/19 04/18/25 1 Week Ago ~12/04/24 omeprazole 20 mg capsule,delayed 20 mg PO HS 05/16/19 04/18/25 12/10/24 21:00 release sertraline 100 mg tablet 100 mg PO QPM 05/16/19 04/18/25 12/10/24 21:00 simvastatin 20 mg tablet 20 mg PO HS 05/16/19 04/18/25 12/10/24 21:00 tamsulosin 0.4 mg capsule 0.8 mg PO QPM 05/16/19 04/18/25 12/10/24 21:00 turmeric root extract 500 mg 500 mg PO QPM 05/16/19 04/18/25 1 Week Ago capsule ~12/04/24 acetaminophen 500 mg tablet 500 mg PO Q6H #60 tabs 05/30/19 04/18/25 12/11/24 05:00 (Tylenol Extra Strength) aspirin 325 mg tablet,delayed 325 mg PO DAILY #28 tabs 05/30/19 04/18/25 12/11/24 06:00 release levothyroxine 25 mcg tablet 25 mcg PO QAM 12/11/24 04/18/25 12/11/24 doxycycline hyclate 100 mg tablet 100 mg PO BID 04/18/25 04/18/25 Unknown Past Medical History Medical History (Updated 04/18/25 @ 14:40 by Brianna Ruiz PA-C) Arthritis BPH (benign prostatic hyperplasia) Cancer Skin (s/p excision)- ?BCC vs. SCC CKD (chronic kidney disease), stage III Diabetes mellitus, type 2 Per records, patient denies Difficult intubation GERD (gastroesophageal reflux disease) Controlled Gout Hiatal hernia Hyperlipidemia Hypothyroidism Infection of spine pt is s/p lumbar decompression/fusion 12/11/24 [facility]; discharged 12/15 to home; presented to outside ED 12/19 and then admitted and transferred to [place] 12/23 with bacteremia/surgical wound fluid collection; had I&D lumbar spine 12/24/24; D/C on 01/07 on IV abx and currently on PO Abx (as of 04/18/25 PAT phone call) Obesity Sleep apnea CPAP (non-compliant per pt) Past Family History Family History Other No family history of adverse response to anesthesia Past Surgical History Surgical History (Updated 04/18/25 @ 14:39 by Brianna Ruiz PA-C) Fusion of spine (1995) C5-6 pt thinks > Cervical rods (r/t cervical fracture) limited ROM all directions Hemorrhoids Removal History of bowel resection R/t perforation with colostomy > reversal colostomy History of herniorrhaphy Multiple History of left shoulder replacement Left reverse shoulder arthroplasty (05/30/19): "Pt with poor view with MAC 4, easy mask. Short neck. Glidescope #3 used without difficulty" History of lumbar surgery L4-L5 decompression/fusion 12/11/24: [place]: Glidescope#4, ETT#7.5 oral, Gr View 1; I&D lumbar spine 12/24/24: Green#2, ETT#7.5 oral, Gr View 1 History of repair of rotator cuff Left History of tonsillectomy History of tooth extraction History of total hip arthroplasty R/L History of total knee replacement R/L Hx of colonoscopy Hx of removal of cyst 3 from back area removed in Aug 2024 Social History Smoking Status: Never smoker Do You Dip or Chew Tobacco: No Hx Alcohol Use: Yes Alcohol type: beer alcohol intake frequency: a few times a month Hx Substance Use: No substance use type: does not use Lab Results Anesthesia Preop Results Results Anesthesia Widget: WBC 7.82 K/ul (4.8-10.8) 04/17/25 Hgb 14.1 g/dl (14.0-18.0) 04/17/25 Hct 42.4 % (42.0-52.0) 04/17/25 Plt 276 K/uL (130-400) 04/17/25 Na 137 mmol/L (136-145) 04/17/25 K 4.6 mmol/L (3.5-5.1) 04/17/25 Cl 100 mmol/L (98-107) 04/17/25 CO2 29 mmol/L (21-32) 04/17/25 BUN 22 mg/dl (6-23) 04/17/25 Creat 1.33 mg/dl (0.6-1.4) 04/17/25 Glucose Level 104 mg/dl (70-99(Fasting)) H 04/17/25 PT 10.8 Seconds (9.0-12.0) 04/17/25 PTT 31 Seconds (21-31) 04/17/25 INR 1.0 (0.9-1.1) 04/17/25 Blood Type O Positive 04/17/25 Antibody Screen NEGATIVE 04/17/25 Testing Laboratory Results Surgeon's office made aware UA/culture not done to chart review-fine from anesthesia standpoint-to surgeon's office if needed and coordination if deemed necessary by their team. Electrocardiogram Date: 08/15/24 NSR, rate 86 bpm RBBB Chest X-Ray Date: 08/15/24 Faint bibasilar airspace opacities which may represent atelectasis, pneumonia, and/or aspiration.
--- NOTE | 2025-04-22 07:40 | History & Physical Bridge Note ---
Date of Service April 22, 2025 History & Physical Bridge Note I have examined the patient, reviewed the History & Physical and in the interval since the performance of the History & Physical I have noted the following changes of clinical significance: no changes noted
--- NOTE | 2025-04-22 07:42 | History & Physical Report ---
Date of Service April 22, 2025 Assessment & Plan (1) Lumbar compression fracture: Plan: Revision foraminotomies L3-4 L5 bilateral possible kyphoplasties L4 and L5 possible extension of instrumentation fusion L2-S1 hardware removal L4-L5 History of Present Illness Chief Complaint: Back pain Primary Care Provider: Laya Bergman PA-C This is a 79-year-old male who presents with worsening back pain and evidence of fracture in the perioperative area. He is here for revision surgery. Allergies Allergy/AdvReac Type Severity Reaction Status Date / Time adhesive tape Allergy Unknown Skin Verified 04/18/25 13:36 irritation No Known Drug Allergies Allergy Unknown Verified 04/18/25 13:36 Home Medications Medication Instructions Recorded Confirmed Type allopurinol 100 mg tablet 100 mg PO QPM 05/16/19 04/18/25 History coQ10 (ubiquinol) 100 mg capsule 100 mg PO QPM 05/16/19 04/18/25 History omeprazole 20 mg capsule,delayed 20 mg PO HS 05/16/19 04/18/25 History release sertraline 100 mg tablet 100 mg PO QPM 05/16/19 04/18/25 History simvastatin 20 mg tablet 20 mg PO HS 05/16/19 04/18/25 History tamsulosin 0.4 mg capsule 0.8 mg PO QPM 05/16/19 04/18/25 History turmeric root extract 500 mg 500 mg PO QPM 05/16/19 04/18/25 History capsule acetaminophen 500 mg tablet 500 mg PO Q6H #60 tabs 05/30/19 04/18/25 Rx (Tylenol Extra Strength) aspirin 325 mg tablet,delayed 325 mg PO DAILY #28 tabs 05/30/19 04/18/25 Rx release levothyroxine 25 mcg tablet 25 mcg PO QAM 12/11/24 04/18/25 History doxycycline hyclate 100 mg tablet 100 mg PO BID 04/18/25 04/18/25 History Past Med/Surg History Problem List (Updated 04/22/25 @ 07:41 by Karan Claros DO) Lumbar compression fracture Lumbar surgical wound fluid collection CKD (chronic kidney disease), stage III Prediabetes Lumbosacral spondylosis with radiculopathy Medical History (Updated 04/22/25 @ 07:41 by Karan Claros DO) Difficult intubation CKD (chronic kidney disease), stage III Infection of spine pt is s/p lumbar decompression/fusion 12/11/24 [facility]; discharged 12/15 to home; presented to outside ED 12/19 and then admitted and transferred to [place] 12/23 with bacteremia/surgical wound fluid collection; had I&D lumbar spine 12/24/24; D/C on 01/07 on IV abx and currently on PO Abx (as of 04/18/25 PAT phone call) Hypothyroidism Gout Obesity Arthritis BPH (benign prostatic hyperplasia) Hiatal hernia GERD (gastroesophageal reflux disease) Controlled Diabetes mellitus, type 2 Per records, patient denies Cancer Skin (s/p excision)- ?BCC vs. SCC Sleep apnea CPAP (non-compliant per pt) Hyperlipidemia Surgical History (Updated 04/18/25 @ 14:39 by Brianna Ruiz PA-C) History of lumbar surgery L4-L5 decompression/fusion 12/11/24: [place]: Glidescope#4, ETT#7.5 oral, Gr View 1; I&D lumbar spine 12/24/24: Green#2, ETT#7.5 oral, Gr View 1 History of tooth extraction Hx of removal of cyst 3 from back area removed in Aug 2024 History of left shoulder replacement Left reverse shoulder arthroplasty (05/30/19): "Pt with poor view with MAC 4, easy mask. Short neck. Glidescope #3 used without difficulty" Hx of colonoscopy History of repair of rotator cuff Left History of total knee replacement R/L History of total hip arthroplasty R/L Hemorrhoids Removal History of herniorrhaphy Multiple History of tonsillectomy Fusion of spine (1995) C5-6 pt thinks > Cervical rods (r/t cervical fracture) limited ROM all directions History of bowel resection R/t perforation with colostomy > reversal colostomy Family History Other No family history of adverse response to anesthesia Social History Smoking Status: Never smoker Tobacco Type: Cigarettes Second Hand Exposure: No; Do You Dip or Chew Tobacco: No; Tobacco Cessation Education Requested by Patient: No Hx Alcohol Use: Yes Alcohol type: beer Hx Substance Use: No Preferred Language: Wolof Communication Ability: Effective Manufacturing Technology Analyst Required: No Beliefs That Will Affect Care: None marital status: Current Living Situation: Spouse Other Information That Helps Us Care for You: No Feels Safe at Home: Yes Safety Concerns: Feels Safe At This Time Assistive Devices: Denture - Upper and Walker Physical Exam Physical Exam: Patient is alert and oriented Heart regular rhythm Lungs clear
[~2025-04-22 07:43] MED LIST: DEXAMETHASONE SOD INJ 4 MG/ML VIAL ONE; GLYCOPYRROLATE 0.2 MG/ML VIAL ONE; LIDOCAINE 2% 2 ML VIAL/AMP(20MG/ML) INFIL ONE; MIDAZOLAM HCL 1 MG/ML 2ML VIAL ONE; ONDANSETRON INJ 2 MG/ML 2 ML VIAL ONE; PROPOFOL IV EMULSION 10 MG/ML 20 ML VIAL IV ONE; ROCURONIUM BROMIDE 10 MG/ML 5 ML VIAL IV ONE; SUGAMMADEX SODIUM 200 MG/2 ML VIAL IV ONE
[2025-04-22] MEDS: LR 60ML/HR IV SCH (08:11)
[2025-04-22] MEDS: LR 15ML/HR IV SCH (08:15)
[2025-04-22] MEDS ORDERED: ATROPINE SULFATE 0.1 MG/ML 10ML SYR IV PRN (08:18)
[2025-04-22] MEDS ORDERED: PROMETHAZINE HCL 6.25 MG in SODIUM CHLORIDE 0.9% 50 ML IV PRN (08:18)
[2025-04-22] MEDS ORDERED: ONDANSETRON INJ 2 MG/ML 2 ML VIAL IV PRN ×2 (08:18→14:05)
[2025-04-22] MEDS: GABAPENTIN 300 MG CAP PO SCH (08:24)
[2025-04-22] MEDS: ACETAMINOPHEN 500 MG TAB PO SCH (08:24)
[2025-04-22] MEDS: CeleBREX 200 MG CAP PO SCH (08:24)
[2025-04-22] MEDS ORDERED: ROCURONIUM BROMIDE 10 MG/ML 5 ML VIAL IV ONE (09:30)
[2025-04-22] MEDS: BUPIVACAINE/EPINEPHRINE 0.25% 1:200,000 30 ML VIAL ONE (09:31)
[2025-04-22] MEDS: ceFAZolin 330 MG/ML 1 GM VIAL ONE (10:03)
[2025-04-22] MEDS ORDERED: HYDROmorphone INJ 2 MG/ML SYR/VIAL ONE (11:19)
--- NOTE | 2025-04-22 11:44 | Operative Report ---
Post Operative Report Pre & Post Diagnosis Operation Date: 04/22/25 09:00 Pre-Op Diagnosis: #1 compression fractures L4 and L5. #2 failure of hardware #3 neuroforaminal stenosis Post-Op Diagnosis: Same I identified the patient and participated in the time-out.: Yes Procedure Operation Date: 04/22/25 09:00 Actual Procedures #1 removal of posterior instrumentation L4-L5. #2 revision decompression L4-5 with foraminotomies. #3 posterior spinal fusion L3-S1. #4 placement posterior instrumentation L3-S1 using camber. #5 placement of Proteus combined with Koros bone graft in the posterior lateral gutters L3-S1. Surgeon Karan Claros, DO Pole Cutter Ludmila Arreola Estimated Blood Loss 600 Findings See Below The patient is 5 foot 10 weighing over 111 kg with a BMI in excess of 34. This combined with an EBL of greater than 600 cc. Significant technical difficulty with positioning exposure and the procedure itself and at least 50% increased operative time. Specimens Cultures from the epidural space were taken Indications This is a 79-year-old male who presents by much diagnosis in light of his c ontinued pain and limitations he is here for revision procedure. Description of Procedure Patient was met with identified informed consent obtained. Patient was then taken to the operative suite underwent intubation placed in a prone position on the Usman table atop the Ehsan frame. All bony prominences well-padded eyes inspected to ensure no external precipice upon them. This point lumbar spine was prepped and draped in the normal sterile fashion. Sharp dissection with the assistance of Bovie cautery from down to and exposing the lamina transverse processes of L3 and instrumentation at L4-L5 and the sacral ala bilaterally. And then proceeded remove the hardware at L4-L5 bilaterally noting marked loosening of the L4 pedicle screws distally fractured through the endplate. L5 pedicle screws were very stable. With the assistance of fluoroscopy placed pedicle screws in L3, repositioned in L4, L5 and S1 levels bilaterally. Exposed epidural space at L4-5 noting evidence of fluid and in light of his history of infection cultures were obtained. I then performed a revision foraminotomies L4-L5 to address any neural compression on the L4 nerve root. Appropriate size rods were then contoured and locked into position bilaterally. The transverse processes of L3-L4-L5 and the sacral ala burred to subcortical bleeding bone. Proteus combined with Koros bone graft was placed in the posterior gutters. 15 round ERON drain inserted. The incision was then closed with 1 Vicryl in the fascia 2-0 Vicryl subcutaneously and 4 Monocryl for final skin closure. Steri- Strips sterile dressing placed. Patient waken taken to PACU stable condition. Please note Ludmila Arreola was present at the entire procedure about the patient positioning complex portion of the surgery and final skin closure. I attest to the content of the Intraoperative Record and any orders documented therein. Any exceptions are noted below.
--- NOTE | 2025-04-22 12:35 | Anesthesiology Progress Note ---
Date of Service April 22, 2025 Anesthesia Post Procedure Vital Signs Vital Signs: Temp Pulse Pulse Resp BP BP Pulse Ox 04/22/25 12:25 79 14 125/67 98 04/22/25 12:15 80 16 142/71 H 97 04/22/25 12:05 81 17 151/68 H 98 04/22/25 11:57 36.3 C L 79 14 131/73 98 04/22/25 08:10 36.7 C 75 20 152/87 H 98 O2 Del Method O2 Flow Rate 04/22/25 12:25 Oxymask 2 04/22/25 12:15 Oxymask 5 04/22/25 12:05 Oxymask 12 04/22/25 11:57 Oxymask 12 04/22/25 08:10 Room Air Pain Intensity Right Lower Back: Pain Intensity: 5 Transfer of Care Handoff Completed per policy Notes Mental Status: alert / awake / arousable Patient Amnestic to Procedure: Yes Nausea / Vomiting: adequately controlled Pain: adequately controlled Airway Patency, RR, SpO2: stable & adequate BP & HR: stable & adequate Hydration State: stable & adequate Anesthetic Complications: no major complications apparent
[2025-04-22] MEDS: DAPTOmycin 600 MG in SYRINGE 0 ML IV ONE (12:43)
--- NOTE | 2025-04-22 13:22 | Fluoroscopy Report ---
FL lumbar spine 2-3V CLINICAL HISTORY: LUMBAR COMPARISON STUDY: 12/11/2024 FLUOROSCOPY TIME: 75 seconds FLUOROSCOPY IMAGES: 3 EXPOSURE DOSE: 78 mGy FINDINGS: Fluoroscopy was provided for lumbar surgery. IMPRESSION: Intraoperative fluoroscopy. ACT 112: Negative or not required by law. Electronically signed by: Esvin Wesley M.D. 04/22/2025 1:20 PM
[2025-04-22] MEDS ORDERED: ACETAMINOPHEN 1,000 MG/100 ML VIAL IV PRN (14:05)
[2025-04-22] MEDS ORDERED: SOD PHOSPHATE/SOD BIPHOSPHATE ENEMA 132 ML BTL PR PRN (14:05)
[2025-04-22] MEDS ORDERED: FAMOTIDINE 20 MG TAB PO PRN (14:05)
[2025-04-22] MEDS ORDERED: LORazepam 0.5 MG TAB PO PRN (14:05)
[2025-04-22] MEDS ORDERED: HYDROmorphone INJ 0.5 MG/0.5 ML SYR IV PRN (14:05)
[2025-04-22] MEDS ORDERED: NALOXONE HCL 0.4 MG/1 ML VIAL/CARP IV PRN (14:05)
[2025-04-22] MEDS ORDERED: MAGNESIUM HYDROXIDE SUSP 30 ML UDC PO PRN (14:05)
[2025-04-22] MEDS ORDERED: ALUMINUM/MAGNESIUM SUSP 30 ML UDC PO PRN (14:05)
[2025-04-22] MEDS ORDERED: ACETAMINOPHEN 500 MG TAB PO PRN (14:05)
[2025-04-22] MEDS ORDERED: HYDROmorphone INJ 1 MG/ML SYRINGE IV PRN (14:05)
[2025-04-22] MEDS ORDERED: METOCLOPRAMIDE HCL INJ 5 MG/ML 2 ML VIAL IV PRN (14:05)
[2025-04-22] MEDS ORDERED: DO NOT ADMINISTER FLU VACCINE PRN (14:05)
[2025-04-22] MEDS ORDERED: DO NOT ADMINISTER PNEUMOCOCCAL VACCINE PRN (14:05)
[2025-04-22] MEDS ORDERED: ONDANSETRON 4 MG OD TAB PO PRN (14:05)
[2025-04-22] MEDS ORDERED: PROMETHAZINE 12.5 MG/50.5 ML BAG IV PRN (14:05)
--- NOTE | 2025-04-22 14:21 | Consultation ---
Date of Consultation April 22, 2025 Assessment & Plan (1) Lumbar surgical wound fluid collection: (2) Lumbosacral spondylosis with radiculopathy: (3) CKD (chronic kidney disease), stage III: (4) Hypothyroidism: (5) Gout: (6) BPH (benign prostatic hyperplasia): (7) GERD (gastroesophageal reflux disease): Plan Mr. Potter is a 79 year old male that presented to the [facility] to undergo an elective L4-L5 and L3-S1 decompression and fusion surgery under the care of Dr. Claros. Additional PMH includes: gout, hypothyroidism, BPH, and GERD. Denies AMI or CVA history. He reports that he takes a baby ASA preventatively. H/O decompression fusion surgery on December 11. D/C on December 15, and returned to the ED on December 19, where he was transferred to [facility] on 12/23 with bacteremia. He was seen by Infectious Disease on 12/24/24 and was discharged on 01/07 on IV abx which was then converted to oral antibiotics (Doxycycline 100 mg PO BID for multiple years) Lumbosacral Spondylosis with Radiculopathy: POD# 0 s/p decompression and fusion L4-L5, L3-S1 with Dr. Claros. Per ortho for pain control, wound care, anticoagulation and activities. Monitor H&H, pre op Hgb 14.1 on 04/17. continue incentive spirometry, PT/OT when appropriate CKD III: Serum creatinine 1.33; baseline 1.2-1.3 Was started on Lasix in December; monitor creatinine in AM and hold nephrotoxic agents if able Has a galaviz catheter; remove once ambulating Hypothyroidism: Chronic Takes levothyroxine; continue Gout: Chronic Takes Allopurinol No acute flares noted BPH: Chronic Takes Tamsulosin; continue GERD: Chronic Takes omeprazole; continue Disposition: PCP: Dr. Bergman; [facility] Code Status: Full Code VTE Prophylaxis: Per admitting team I spent a total of 62 minutes coordinating, documenting, and providing care for this patient excluding time spent inthe performance of separately billed services or time spent by another provider/QHP. Supervising Physician Co-Signing Physician Notes 79-year-old male here for elective L4-L5 and L3 S1 decompression and fusion surgery, was seen and examined at bedside. He had a recent admission for bacteremia and was started on IV daptomycin followed by chronic suppressive therapy with doxycycline. Patient is hemodynamically stable postoperatively, patient has been started on Daptomycin, follow blood culture, hold home doxycycline while on daptomycin, hold statin and follow CPK level while on daptomycin. likely involve infectious disease as we have results from blood culture. On exam: Patient on room air, low back dressing without soakage, ERON drain with moderate serosanguineous collection noted, distal neurovascular status WNL. Rest of the examination as above. Total time spent: 15 minutes I have seen and examined the patient and have discussed the case with the provider above. I agree with the assessment and plan as stated. History of Present Illness Requesting Physician: Dr. Claros Reason for Consultation: Post operative Medical consultation Attending Physician: Karan Claors, History of Present Illness Mr. Potter is a 79 year old male that presented to the [facility] to undergo an elective L4-L5 and L3-S1 decompression and fusion surgery under the care of Dr. Claros. Additional PMH includes: gout, hypothyroidism, BPH, and GERD. Denies AMI or CVA history. He reports that he takes a baby ASA preventatively. Pt with complex history of decompression fusion surgery on December 11. He was discharged on December 15, and returned to the ED on December 19, where he was transferred to [facility] on 12/23 with bacteremia. He was seen by Infectious Disease on 12/24/24 and was discharged on 01/07 on IV abx which was then converted to oral antibiotics (Doxycycline 100 mg PO BID for multiple years) He has been taking Lasix since his last admission for 'water retention' but does not have a standing history of HTN. He reports that he has developed delirium with opioids in the past; would prefer sticking to Tylenol for his pain regimen. Upon entering his room, he had his , son and daughter at bedside. Patient just finished eating Jell-O without nausea or vomiting. He is eager to eat. He denies fever, pain, neuropathy. He is able to wiggle his toes B/L and can left each leg independently off of the bed. ERON drain x1 with juliano red bloody output. He reportedly has ANGELA, but does not wear CPAP at home and has declined CPAP here. [facility] Hospitalists were consulted for post operative medical management. We are available 06/03 vis [place] [facility]. Please do not hesitate to contact us with any questions or concerns. Please see A/P for further details. Allergies Allergy/AdvReac Type Severity Reaction Status Date / Time adhesive tape Allergy Unknown Skin Verified 04/22/25 07:57 irritation No Known Drug Allergies Allergy Unknown Verified 04/22/25 07:57 Home Medications Medication Instructions Recorded Confirmed Type allopurinol 100 mg tablet 100 mg PO QPM 05/16/19 04/22/25 History coQ10 (ubiquinol) 100 mg capsule 100 mg PO QPM 05/16/19 04/22/25 History omeprazole 20 mg capsule,delayed 20 mg PO HS 05/16/19 04/22/25 History release simvastatin 20 mg tablet 20 mg PO HS 05/16/19 04/22/25 History tamsulosin 0.4 mg capsule 0.8 mg PO QPM 05/16/19 04/22/25 History turmeric root extract 500 mg 500 mg PO QPM 05/16/19 04/22/25 History capsule acetaminophen 500 mg tablet 500 mg PO Q6H #60 tabs 05/30/19 04/22/25 Rx (Tylenol Extra Strength) levothyroxine 25 mcg tablet 25 mcg PO QAM 12/11/24 04/22/25 History doxycycline hyclate 100 mg tablet 100 mg PO BID 04/18/25 04/22/25 History aspirin 81 mg tablet 81 mg PO DAILY 04/22/25 04/22/25 History docusate sodium 100 mg capsule 200 mg PO HS 04/22/25 04/22/25 History (Colace) donepezil 5 mg tablet 5 mg PO HS 04/22/25 04/22/25 History duloxetine 30 mg capsule,delayed 30 mg PO DAILY 04/22/25 04/22/25 History release furosemide 20 mg tablet 20 mg PO DAILY 04/22/25 04/22/25 History melatonin 10 mg tablet 10 mg PO HS 04/22/25 04/22/25 History memantine 5 mg tablet 5 mg PO PM 04/22/25 04/22/25 History oxybutynin chloride 5 mg tablet 5 mg PO BID 04/22/25 04/22/25 History trazodone 50 mg tablet 50 mg PO HS 04/22/25 04/22/25 History vitamin D3 500 unit-folic acid 1 1 tab PO DAILY 04/22/25 04/22/25 History mg tablet Patient History Medical History Difficult intubation CKD (chronic kidney disease), stage III Infection of spine pt is s/p lumbar decompression/fusion 12/11/24 [facility]; discharged 12/15 to home; presented to outside ED 12/19 and then admitted and transferred to [place] 12/23 with bacteremia/surgical wound fluid collection; had I&D lumbar spine 12/24/24; D/C on 01/07 on IV abx and currently on PO Abx (as of 04/18/25 PAT phone call) Hypothyroidism Gout Obesity Arthritis BPH (benign prostatic hyperplasia) Hiatal hernia GERD (gastroesophageal reflux disease) Controlled Diabetes mellitus, type 2 Per records, patient denies Cancer Skin (s/p excision)- ?BCC vs. SCC Sleep apnea CPAP (non-compliant per pt) Hyperlipidemia Surgical History History of lumbar surgery L4-L5 decompression/fusion 12/11/24: [place]: Glidescope#4, ETT#7.5 oral, Gr View 1; I&D lumbar spine 12/24/24: Green#2, ETT#7.5 oral, Gr View 1 History of tooth extraction Hx of removal of cyst 3 from back area removed in Aug 2024 History of left shoulder replacement Left reverse shoulder arthroplasty (05/30/19): "Pt with poor view with MAC 4, easy mask. Short neck. Glidescope #3 used without difficulty" Hx of colonoscopy History of repair of rotator cuff Left History of total knee replacement R/L History of total hip arthroplasty R/L Hemorrhoids Removal History of herniorrhaphy Multiple History of tonsillectomy Fusion of spine (1995) C5-6 pt thinks > Cervical rods (r/t cervical fracture) limited ROM all directions History of bowel resection R/t perforation with colostomy > reversal colostomy Family History Other No family history of adverse response to anesthesia Social History Smoking Status: Never smoker Tobacco Type: Cigarettes Second Hand Exposure: No; Do You Dip or Chew Tobacco: No; Tobacco Cessation Education Requested by Patient: No Hx Alcohol Use: Yes Alcohol type: beer Hx Substance Use: No Preferred Language: Yakut Communication Ability: Effective 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 Beliefs That Will Affect Care: None marital status: Current Living Situation: Spouse Other Information That Helps Us Care for You: No Feels Safe at Home: Yes Safety Concerns: Feels Safe At This Time Assistive Devices: Denture - Upper and Walker Review of Systems Review of Systems: Neuro: (-) Falls, trauma, slurred speech HEENT: (-) INGRAM, dizziness, dysphagia, visual or auditory changes CV: (-) CP, palpitations, swelling Resp: (-) SOB GI: (-) appetite changes, N/V/D, bowel changes : (-) urinary changes Skin: (-) rashes Psych: (-) anxiety, depression Physical Exam Physical Exam: Neuro: AAOx4, PERRLA, no aphagia, memory changes, CNII-XII grossly intact HEENT: head normocephalic, moist mucus membranes CV: S1/S2, (-) M/G/R, (-) edema, cap refill < 3 seconds Resp: Lungs CTA in all jaeger. On RA GI: Abdomen S/NT/ND, Ax4 bowel sounds, (-) CVA tenderness Musculoskeletal: 5/5 B/L UE strength, 5/5 B/L LE strength. No gait disturbance Skin: (-) rashes , (-) erythema. Psych: euthymic mood Results & Data Vital Signs (Past 12 Hours) Vital Signs Temp Pulse Pulse Resp BP BP Pulse Ox 04/22/25 13:35 36.3 C L 83 16 139/72 94 04/22/25 13:03 36.5 C 84 15 120/70 93 04/22/25 12:45 77 14 124/69 95 04/22/25 12:35 36.4 C L 82 16 111/68 94 04/22/25 12:25 79 14 125/67 98 04/22/25 12:15 80 16 142/71 H 97 04/22/25 12:05 81 17 151/68 H 98 04/22/25 11:57 36.3 C L 79 14 131/73 98 04/22/25 08:10 36.7 C 75 20 152/87 H 98 O2 Del Method O2 Flow Rate 04/22/25 13:35 Room Air 04/22/25 13:03 Room Air 04/22/25 12:45 Room Air 04/22/25 12:35 Room Air 04/22/25 12:25 Oxymask 2 04/22/25 12:15 Oxymask 5 04/22/25 12:05 Oxymask 12 04/22/25 11:57 Oxymask 12 04/22/25 08:10 Room Air (1) Lumbar surgical wound fluid collection Encounter type: initial encounter Qualified Code(s): T81.89XA - Other complications of procedures, not elsewhere classified, initial encounter (4) Hypothyroidism Hypothyroidism type: unspecified Qualified Code(s): E03.9 - Hypothyroidism, unspecified (6) BPH (benign prostatic hyperplasia) Lower urinary tract symptom detail: unspecified Lower urinary tract symptom presence: symptoms present Qualified Code(s): N40.1 - Benign prostatic hyperplasia with lower urinary tract symptoms (7) GERD (gastroesophageal reflux disease) Esophagitis presence: esophagitis presence not specified Qualified Code(s): K21.9 - Gastro-esophageal reflux disease without esophagitis
[2025-04-22] MEDS: FLOSEAL HEMOSTATIC MATRIX 10ML TOP ONE (14:31)
[2025-04-22] MEDS ORDERED: NON-FORMULARY MEDICATION (Coq10 (Ubiquinol) 100 mg Capsule) PO SCH (21:00)
[2025-04-22] MEDS: MELATONIN 3 MG TAB PO SCH (22:24)
[2025-04-22] MEDS: DONEPEZIL HCL 5 MG TAB PO SCH (22:25)
[2025-04-22] MEDS: MEMANTINE HCL 5 MG TAB PO SCH (22:25)
[2025-04-22] MEDS: SIMVASTATIN 20 MG TAB PO SCH (22:25)
[2025-04-22] MEDS: DOCUSATE SODIUM/SENNA 50/8.6MG TAB PO SCH (22:25)
[2025-04-22] MEDS: TAMSULOSIN HCL 0.4 MG CAP PO SCH (22:25)
[2025-04-22] MEDS: DOXYCYCLINE HYCLATE 100 MG CAP PO SCH (22:25)
[2025-04-23] MEDS: POLYETHYLENE (MIRALAX) 17 GM PACK PO SCH (05:48)
[2025-04-23] MEDS: LEVOTHYROXINE SODIUM 25 MCG TABLET PO SCH (05:48)
[2025-04-23 06:29] LABS: Hematocrit (blood only) 30.8 % (42.0-52.0); Hemoglobin 10.6 g/dl (14.0-18.0); Immature Granulocytes # (auto) 0.08 K/uL (0.01-0.20); Immature Granulocytes % (auto) 0.6 %; Mean Corpuscular Hemoglobin 31.7 pg (25.0-34.0); Mean Corpuscular Volume 92.2 fL (80.0-100.0); Platelet Count 244 K/uL (130-400); RDW Standard Deviation 47.5 fL (36.4-46.3); Red Blood Count 3.34 M/uL (4.70-6.10); White Blood Count 13.15 K/ul (4.8-10.8)
[2025-04-23 06:47] LABS: Anion Gap 4.0 (3-11); Blood Urea Nitrogen 17.0 mg/dl (6-23); Calcium 8.6 mg/dl (8.6-10.3); Carbon Dioxide 31.0 mmol/L (21-32); Chloride 104.0 mmol/L (98-107); Creatinine Clr Calc Pharmacy 63.3 ml/min; Glucose 139.0 mg/dl (70-99(Fasting)); Potassium 4.5 mmol/L (3.5-5.1); Sodium 139.0 mmol/L (136-145)
[2025-04-23] MEDS: ASPIRIN 81 MG ECTAB PO SCH (08:09)
[2025-04-23] MEDS: FUROSEMIDE 20 MG TAB PO SCH (08:10)
[2025-04-23] MEDS: MULTIVITAMIN TAB PO SCH (08:10)
--- NOTE | 2025-04-23 09:47 | Orthopedic Progress Note ---
Date of Service April 23, 2025 Assessment & Plan (1) Lumbar compression fracture: Plan: Patient appears very comfortable at this time. Will follow with physical therapy. Final disposition pending. Admission and Anticipated Discharge Date Admission Date: April 22, 2025 Subjective Patient's back pain is controlled. He denies any leg pain. He has been up and ambulating. Physical Exam Physical Exam: Patient is in the chair at the bedside. Has good strength testing. Appears comfortable. Results & Data Vital Signs (Past 12 Hours) Vital Signs Temp Pulse Pulse Resp BP Pulse Ox O2 Del Method 04/23/25 07:57 36.6 C 80 16 112/60 98 Room Air 04/23/25 03:41 36.4 C L 86 16 109/62 96 Room Air 04/22/25 23:05 36.6 C 94 H 18 109/61 92 Room Air Queries Orthopedic Spine Obesity: Yes
[2025-04-23] MEDS: DAPTOmycin 600 MG in SYRINGE 0 ML IV SCH (13:33)
--- NOTE | 2025-04-23 14:06 | Hospitalist Progress Note ---
Date of Service April 23, 2025 Assessment & Plan (1) Lumbar surgical wound fluid collection: (2) Lumbosacral spondylosis with radiculopathy: (3) CKD (chronic kidney disease), stage III: (4) Hypothyroidism: (5) Gout: (6) BPH (benign prostatic hyperplasia): (7) GERD (gastroesophageal reflux disease): Plan Mr. Potter is a 79 year old male that presented to the [facility] to undergo an elective L4-L5 and L3-S1 decompression and fusion surgery under the care of Dr. Claros. Additional PMH includes: gout, hypothyroidism, BPH, and GERD. Denies AMI or CVA history. He reports that he takes a baby ASA preventatively. H/O decompression fusion surgery on December 11. D/C on December 15, and returned to the ED on December 19, where he was transferred to [facility] on 12/23 with bacteremia. He was seen by Infectious Disease on 12/24/24 and was discharged on 01/07 on IV abx which was then converted to oral antibiotics (Doxycycline 100 mg PO BID for multiple years) Lumbosacral Spondylosis with Radiculopathy: Acute blood loss Anemia s/p decompression and fusion L4-L5, L3-S1 on 04/22/2025 Per ortho for pain control, wound care, anticoagulation and activities. Monitor H&H, pre op Hgb 14.1 on 04/17.;Hemoglobin down trended to 10.6 g per DL; likely secondary to surgery/hemodilution continue incentive spirometry, PT/OT bowel regimen History of lumbar surgical wound, Staph epidermidis bacteremia Was treated with daptomycin in December; recommended p.o. suppressive therapy for at least 1 year. Patient currently on doxycycline at home; daptomycin here. CKD III: creatinine at baseline Was started on Lasix in December; monitor creatinine in AM and hold nephrotoxic agents if able Hypothyroidism: Chronic Takes levothyroxine; continue Gout: Chronic Takes Allopurinol No acute flares noted BPH: Chronic Takes Tamsulosin; continue GERD: Chronic Takes omeprazole; continue Disposition: PCP: Dr. Bergman; [facility] Code Status: Full Code VTE Prophylaxis: Per admitting team Please note the above document was generated using voice recognition software. It may contain grammatical, syntax or spelling errors. Any formal questions or concerns about the content, text or information contained within the body of this dictation should be directly addressed to the provider for clarification Admission and Anticipated Discharge Date Admission Date: April 22, 2025 Subjective Patient seen and examined at bedside. Is comfortable; not in distress. He reports that the pain is well-controlled. No significant events overnight Review of Systems Review of Systems: All systems reviewed & are unremarkable except as noted in Subjective Physical Exam Physical Exam: Constitutional: Alert oriented x 3; not in distress. Respiratory: normal respiratory effort, lungs clear to auscultation, no wheeze, rales, rhonchi. Normal insp/exp effort, no accessory muscle use Cardiovascular: RRR, no murmur, no edema Vessels: no JVD or carotid bruit Abdomen: normal bowel sounds, soft, nontender, no hepatosplenomegaly Musculoskeletal: Dressing in place in lower back; no soakage. Neurologic: PERRL, EOMI, accommodation nl, no face palsy, no dysarthria CN's II- XI intact bilaterally and moves all extremities Psychiatric: A+Ox3, euthymic affect Results & Data Results & Data Vital Signs (Past 12 Hours) Vital Signs Temp Pulse Pulse Resp BP Pulse Ox O2 Del Method 04/23/25 11:03 36.6 C 76 16 101/65 96 Room Air 04/23/25 07:57 36.6 C 80 16 112/60 98 Room Air 04/23/25 03:41 36.4 C L 86 16 109/62 96 Room Air (1) Lumbar surgical wound fluid collection Encounter type: initial encounter Qualified Code(s): T81.89XA - Other complications of procedures, not elsewhere classified, initial encounter (4) Hypothyroidism Hypothyroidism type: unspecified Qualified Code(s): E03.9 - Hypothyroidism, unspecified (6) BPH (benign prostatic hyperplasia) Lower urinary tract symptom presence: symptoms present Lower urinary tract symptom detail: unspecified Qualified Code(s): N40.1 - Benign prostatic hyperplasia with lower urinary tract symptoms (7) GERD (gastroesophageal reflux disease) Esophagitis presence: esophagitis presence not specified Qualified Code(s): K21.9 - Gastro-esophageal reflux disease without esophagitis
[2025-04-24] MEDS: diphenhydrAMINE Capsule 25 MG CAP PO PRN (08:05)
--- NOTE | 2025-04-24 09:32 | Orthopedic Progress Note ---
Date of Service April 24, 2025 Assessment & Plan (1) Lumbosacral spondylosis with radiculopathy: Plan: Esvin is postoperative day 2 status post hardware revision and I&D lumbar spine. Will continue with physical therapy and pain control today. Maintain ERON drain. It is strongly encouraged that the patient be discharged to a rehab facility after this hospital stay. This can happen as early as tomorrow Admission and Anticipated Discharge Date Admission Date: April 22, 2025 Subjective Esvin is postoperative day 2 status post hardware revision and I&D. wound cultures are still no growth to date. ERON drain output last shift is 60 cc. Has some left buttock and left leg pain that started yesterday. Doing well in physical therapy. Review of Systems Review of Systems: All systems reviewed & are unremarkable except as noted in HPI & below Physical Exam Physical Exam: Patient was also seen and examined along with Dr. Claros He sitting in a chair in no acute distress Dressings clean dry intact with functioning ERON drain Strength intact bilateral lower extremities Results & Data Vital Signs (Past 12 Hours) Vital Signs Temp Pulse Resp BP BP Pulse Ox O2 Del Method 04/24/25 07:47 36.5 C 78 18 111/70 92 Room Air 04/23/25 22:57 36.5 C 89 20 115/74 95 Room Air Queries Orthopedic Spine Obesity: Yes
[2025-04-24] MEDS: SODIUM CHLORIDE 0.9% 500 ML IV ONE ×2 (10:42→13:30)
--- NOTE | 2025-04-24 13:59 | Hospitalist Progress Note ---
Date of Service April 24, 2025 Assessment & Plan (1) Lumbar surgical wound fluid collection: (2) Lumbosacral spondylosis with radiculopathy: (3) CKD (chronic kidney disease), stage III: (4) Hypothyroidism: (5) Gout: (6) BPH (benign prostatic hyperplasia): (7) GERD (gastroesophageal reflux disease): Plan Mr. Potter is a 79 year old male that presented to the [facility] to undergo an elective L4-L5 and L3-S1 decompression and fusion surgery under the care of Dr. Claros. Additional PMH includes: gout, hypothyroidism, BPH, and GERD. Denies AMI or CVA history. He reports that he takes a baby ASA preventatively. H/O decompression fusion surgery on December 11. D/C on December 15, and returned to the ED on December 19, where he was transferred to [facility] on 12/23 with bacteremia. He was seen by Infectious Disease on 12/24/24 and was discharged on 01/07 on IV abx which was then converted to oral antibiotics (Doxycycline 100 mg PO BID for multiple years) Lumbosacral Spondylosis with Radiculopathy: Acute blood loss Anemia s/p decompression and fusion L4-L5, L3-S1 on 04/22/2025 Per ortho for pain control, wound care, anticoagulation and activities. Monitor H&H, pre op Hgb 14.1 on 04/17.;Hemoglobin down trended to 10.6 g per DL; likely secondary to surgery/hemodilution continue incentive spirometry, PT/OT bowel regimen History of lumbar surgical wound, Staph epidermidis bacteremia Was treated with daptomycin in December; recommended p.o. suppressive therapy for at least 1 year. Patient currently on doxycycline at home; daptomycin here. Orthostatic hypotension Patient reported dizziness on 04/24/2025; orthostatic hypotension positive. Given IV fluids with improvement in blood pressure. Plan to give 1 L of NS at 125cc/hr. CKD III: creatinine at baseline Was started on Lasix in December; monitor creatinine in AM and hold nephrotoxic agents if able Hypothyroidism: Chronic Takes levothyroxine; continue Gout: Chronic Takes Allopurinol No acute flares noted BPH: Chronic Takes Tamsulosin; continue GERD: Chronic Takes omeprazole; continue Disposition: PCP: Dr. Bergman; [facility] Code Status: Full Code VTE Prophylaxis: Per admitting team Please note the above document was generated using voice recognition software. It may contain grammatical, syntax or spelling errors. Any formal questions or concerns about the content, text or information contained within the body of this dictation should be directly addressed to the provider for clarification Admission and Anticipated Discharge Date Admission Date: April 22, 2025 Subjective Patient seen and examined at bedside. Patient reported feeling lightheadedness on standing up; orthostatic blood positive. Review of Systems Review of Systems: All systems reviewed & are unremarkable except as noted in Subjective Physical Exam Physical Exam: Constitutional: Alert oriented x 3; not in distress. Respiratory: normal respiratory effort, lungs clear to auscultation, no wheeze, rales, rhonchi. Normal insp/exp effort, no accessory muscle use Cardiovascular: RRR, no murmur, no edema Vessels: no JVD or carotid bruit Abdomen: normal bowel sounds, soft, nontender, no hepatosplenomegaly Musculoskeletal: Dressing in place in lower back; no soakage. Neurologic: PERRL, EOMI, accommodation nl, no face palsy, no dysarthria CN's II- XI intact bilaterally and moves all extremities Psychiatric: A+Ox3, euthymic affect Results & Data Results & Data Vital Signs (Past 12 Hours) Vital Signs Temp Pulse Resp BP Pulse Ox O2 Del Method 04/24/25 07:47 36.5 C 78 18 111/70 92 Room Air (1) Lumbar surgical wound fluid collection Encounter type: initial encounter Qualified Code(s): T81.89XA - Other complications of procedures, not elsewhere classified, initial encounter (4) Hypothyroidism Hypothyroidism type: unspecified Qualified Code(s): E03.9 - Hypothyroidism, unspecified (6) BPH (benign prostatic hyperplasia) Lower urinary tract symptom presence: symptoms present Lower urinary tract symptom detail: unspecified Qualified Code(s): N40.1 - Benign prostatic hyperpl pb with lower urinary tract symptoms (7) GERD (gastroesophageal reflux disease) Esophagitis presence: esophagitis presence not specified Qualified Code(s): K21.9 - Gastro-esophageal reflux disease without esophagitis
[2025-04-24 15:31] VITALS: O2SAT 94
[2025-04-24] MEDS: SODIUM CHLORIDE 0.9% 1,000 ML IV SCH (16:20)
[2025-04-24] MEDS: COUGH DROP (SUGAR FREE) LOZ 24 LOZ/1 BOX BUCCAL PRN (20:31)
[2025-04-25 07:33] VITALS: PULSE 94; RESP 16; TEMP 98.2
--- NOTE | 2025-04-25 09:49 | Discharge Summary ---
Date of Service April 25, 2025 Admission HPI Per Admitting Provider This is a 79-year-old male who presents with worsening back pain and evidence of fracture in the perioperative area. He is here for revision surgery. Principal Diagnosis Lumbar compression fracture Discharge Data Allergies Allergy/AdvReac Type Severity Reaction Status Date / Time adhesive tape Allergy Unknown Skin Verified 04/22/25 07:57 irritation No Known Drug Allergies Allergy Unknown Verified 04/22/25 07:57 Consultations 04/22/25 14:05 Consult Hospitalist Routine Procedures Performed Operation Date: 04/22/25 09:00 Actual Procedures p Bilateral L4-L5 Revision Foraminotomies, L3-S1 Extension of Instrumented Fusion, L4-L5 Hardware Removal(Not Applicable) - Karan Claros DO Ordered Studies 04/22/25 09:00 FL lumbar spine 2-3V Routine Hospital Course (1) Lumbar compression fracture: Patient underwent revision decompression and fusion. Tolerated as well as taken orthopedic for postoperative postoperatively his symptoms are markedly improved. He is tolerating physical therapy. Neurologically intact. Simply discharged to rehab. Discharge orders instructions from the chart for further review. Total Time Total Time Spent Total Time Spent (In Minutes): 20 minutes Discharge Plan Discharge Items Patient Disposition: Transfer Inpatient Rehab Fac Reason For Visit: Lumbar Disc Herniation, Hardware Failure, Foramina Discharge Diagnosis: Lumbar fracture with radiculopathy Activity: As commented below Non-emergency contact: Primary Care Provider Call non-emergency contact if: you have any medication questions Follow-up/Referrals: Laya Bergman PA-C [Primary Care Provider] - Diet: Regular Addtl Attending Provider Instructions: ACTIVITY RECOMMENDATIONS: SELF CARE INSTRUCTIONS AFTER THORACIC/LUMBAR FUSIONS 1. You may walk to your tolerance. It is good exercise for your legs and back. Expect some back and intermittent leg aches and pains. 2. You may perform "counter-top" level activities (make a sandwich, alyssa with a project, etc.). 3. No bending or lifting of more than 10 pounds or back twisting of any nature (roll like a log when turning in bed). 4. You may ride in a car for 20-30 minutes at a time. No driving until after your first visit with your doctor. 5. Frequent changes of position and restricting sitting to 30 minutes at a time will help limit the amount of back spasms and stiffness you may experience. 6. You may discontinue the use of ambulatory aids (cane, crutches, etc.) once your strength and confidence allow. 7. You may supervisor finishing department the shower and let water strike your incision when you arrive home at least once daily. Do not take a tub bath, sit in a hot tub or go into a swimming pool until after your first recheck in the office. 8. You may resume previous diet. SPECIAL CARE INSTRUCTIONS: VERY IMPORTANT TO READ AND REVIEW A. Your surgical incision has been closed with a cosmetic suture under the skin that will dissolve in about 6 weeks. In 14 days, you can use a pair of clean scissors and cut the suture that is left outside of the skin at the ends of your incision. 1. The small skin tapes can be removed 7 days after surgery if they have not fallen off by that point. 2. You may keep the wound open to air as much as possible to promote healing after post-op day number 5 unless told otherwise by your doctor. 3. If you think the wound looks like it is becoming infected (redness or worsening drainage) and/or you are experiencing fever, chill or worsening back pain and muscle spasms, contact the office so that we may evaluate you as soon as possible. B. Complications are uncommon, but please contact us if you have any signs or symptoms of: 1. wound infection (fever higher than 102.5 degrees F, redness, separation of wound, drainage, or increasing pain from the incision) 2. blood clots in legs (pain, swelling, redness and warmth in legs) 3. urinary tract infection (fever higher than 102.5 degrees F, burning upon urination or increased frequency of urination) 4. nerve problems (inability to walk on your toes or heels, numbness, loss of bowel or bladder control) 5. any other symptoms that concern you C. Please call the office at if you have any concerns or questions about your operation or recovery. D. No smoking! Smoking drastically decreases the chance of a solid fusion. E. Do not take any anti-inflammatory medications (Indocin, Advil, Motrin, Aspirin, Naprosyn, etc.) as these may inhibit the chance of a solid fusion. Tylenol is okay to take for pain. MANAGING PAIN AFTER SPINAL SURGERY 1. Narcotic medication is intended for short-term use and will be provided for surgical pain. Surgical pain usually lasts for a period of 4-6 weeks. Narcotic medication includes Percocet, Vicodin, Darvocet, Tylenol #3 or Lortab. 2. Longer-term pain is more appropriately treated with non-narcotic medication such as Tylenol ES. 3. Muscle spasm is not appropriately treated with narcotics. Muscle relaxers such as Soma, Flexeril or Skelaxin can be used along with Tylenol ES. 4. Remember that we all live with some "aches and pains". This is not unusual or uncommon after an injury or as we get older. a. Back pain is expected and may include muscle spasms for 4 to 6 weeks after surgery. The pain should gradually improve. If the pain worsens for no apparent reason, please contact the office. b. Intermittent leg pain may also be experienced and should not be concerned about unless it worsens for no apparent reason. If so, please contact the office. 5. We will provide appropriate medication within the normal guidelines of their prescribed use. We will also be very cautious and aware of potential abuse and extended duration of patients' medication needs. a. Pain medications are for your comfort and to assist with sleep and rest so that the tissue can heal. They are not provided in order to return to normal activity and should not be used through the day. To do so or worsening pain at night can result from ongoing tissue damage and development of tolerance to the prescribed medicine. 6. Please allow 2-3 days to process refills. Prescriptions will not be mailed but must be picked up at the office. FOLLOW UP VISIT: Keep your scheduled follow-up appointment. Any questions, please call the office at . Pending Studies at Discharge: No Stand-Alone Forms: My [facility] Skilled Items Patient informed of condition?: Yes DNR: No Discharge Level of Care: Acute rehab Communicable Disease: No Discharge Prognosis: Improving Lines: None Urinary Catheter: No Medications and DC Order Prescriptions: Continued allopurinol 100 mg Tablet 100 mg PO QPM tamsulosin 0.4 mg Capsule 0.8 mg PO QPM simvastatin 20 mg Tablet 20 mg PO HS Hold Instructions: While on Daptomtcin omeprazole 20 mg Capsule,Delayed Release(Dr/Ec) 20 mg PO HS turmeric root extract 500 mg Capsule 500 mg PO QPM coQ10 (ubiquinol) 100 mg Capsule 100 mg PO QPM acetaminophen [Tylenol Extra Strength] 500 mg Tablet 500 mg PO Q6H Qty: 60 2RF levothyroxine 25 mcg tablet 25 mcg PO QAM doxycycline hyclate 100 mg tablet 100 mg PO BID aspirin 81 mg Tablet 81 mg PO DAILY furosemide 20 mg Tablet 20 mg PO DAILY oxybutynin chloride 5 mg Tablet 5 mg PO BID duloxetine 30 mg Capsule,Delayed Release(Dr/Ec) 30 mg PO DAILY vitamin D3-folic acid 500 unit- 1 mg Tablet 1 tab PO DAILY donepezil 5 mg Tablet 5 mg PO HS docusate sodium [Colace] 100 mg Capsule 200 mg PO HS melatonin 10 mg Tablet 10 mg PO HS trazodone 50 mg Tablet 50 mg PO HS memantine 5 mg Tablet 5 mg PO PM Discharge Orders: Discharge Order (Routine); Ordered 04/25/25 Ordered By: Karan Claros Admission Data Admit Date/Time: 04/22/25 11:48 Attending Provider: Karan Claros Admit Provider: Karan Claros Primary Care Provider: Laya Bergman Other Providers: Tamar Gaines; [facility]
[2025-04-25 12:05] VITALS: BP 129/78
--- NOTE | 2025-04-25 12:36 | Hospitalist Progress Note ---
Date of Service April 25, 2025 Assessment & Plan (1) Lumbar surgical wound fluid collection: (2) Lumbosacral spondylosis with radiculopathy: (3) CKD (chronic kidney disease), stage III: (4) Hypothyroidism: (5) Gout: (6) BPH (benign prostatic hyperplasia): (7) GERD (gastroesophageal reflux disease): Plan Mr. Potter is a 79 year old male that presented to the [facility] to undergo an elective L4-L5 and L3-S1 decompression and fusion surgery under the care of Dr. Claros. Additional PMH includes: gout, hypothyroidism, BPH, and GERD. Denies AMI or CVA history. He reports that he takes a baby ASA preventatively. H/O decompression fusion surgery on December 11. D/C on December 15, and returned to the ED on December 19, where he was transferred to [facility] on 12/23 with bacteremia. He was seen by Infectious Disease on 12/24/24 and was discharged on 01/07 on IV abx which was then converted to oral antibiotics (Doxycycline 100 mg PO BID for multiple years) Lumbosacral Spondylosis with Radiculopathy: Acute blood loss Anemia s/p decompression and fusion L4-L5, L3-S1 on 04/22/2025 Per ortho for pain control, wound care, anticoagulation and activities. Monitor H&H, pre op Hgb 14.1 on 04/17.;Hemoglobin down trended to 10.6 g per DL; likely secondary to surgery/hemodilution continue incentive spirometry, continue PT/OT at discharge. continue aggressive bowel regimen at discharge. History of lumbar surgical wound, Staph epidermidis bacteremia Was treated with daptomycin in December; recommended p.o. suppressive therapy for at least 1 year. Patient currently on doxycycline at home; continue at discharge. Orthostatic hypotension Patient reported dizziness on 04/24/2025; orthostatic hypotension positive. Given IV fluids with improvement in blood pressure. Plan to give 1 L of NS at 125cc/hr with improvement in blood pressure CKD III: creatinine at baseline Was started on Lasix in December; monitor creatinine in AM and hold nephrotoxic agents if able Hypothyroidism: Chronic Takes levothyroxine; continue Gout: Chronic Takes Allopurinol No acute flares noted BPH: Chronic Takes Tamsulosin; continue GERD: Chronic Takes omeprazole; continue Disposition: PCP: Dr. Bergman; [facility] Code Status: Full Code VTE Prophylaxis: Per admitting team Please note the above document was generated using voice recognition software. It may contain grammatical, syntax or spelling errors. Any formal questions or concerns about the content, text or information contained within the body of this dictation should be directly addressed to the provider for clarification Admission and Anticipated Discharge Date Admission Date: April 22, 2025 Subjective Patient seen and examined at bedside. He is sitting up on a chair; reports being comfortable. Denies any bowel movement overnight. No significant events overnight. Review of Systems Review of Systems: All systems reviewed & are unremarkable except as noted in Subjective Physical Exam Physical Exam: Constitutional: Alert oriented x 3; not in distress. Respiratory: normal respiratory effort, lungs clear to auscultation, no wheeze, rales, rhonchi. Normal insp/exp effort, no accessory muscle use Cardiovascular: RRR, no murmur, no edema Vessels: no JVD or carotid bruit Abdomen: normal bowel sounds, soft, nontender, no hepatosplenomegaly Musculoskeletal: Dressing in place in lower back; no soakage. Neurologic: PERRL, EOMI, accommodation nl, no face palsy, no dysarthria CN's II- XI intact bilaterally and moves all extremities Psychiatric: A+Ox3, euthymic affect Results & Data Results & Data Vital Signs (Past 12 Hours) Vital Signs Temp Pulse Pulse Resp BP BP Pulse Ox 04/25/25 12:02 36.8 C 89 94 H 16 144/76 H 129/78 94 04/25/25 07:31 36.8 C 94 H 16 144/76 H 94 O2 Del Method 04/25/25 12:02 04/25/25 07:31 Room Air (1) Lumbar surgical wound fluid collection Encounter type: initial encounter Qualified Code(s): T81.89XA - Other complications of procedures, not elsewhere classified, initial encounter (4) Hypothyroidism Hypothyroidism type: unspecified Qualified Code(s): E03.9 - Hypothyroidism, unspecified (6) BPH (benign prostatic hyperplasia) Lower urinary tract symptom presence: symptoms present Lower urinary tract symptom detail: unspecified Qualified Code(s): N40.1 - Benign prostatic hyperplasia with lower urinary tract symptoms (7) GERD (gastroesophageal reflux disease) Esophagitis presence: esophagitis presence not specified Qualified Code(s): K21.9 - Gastro-esophageal reflux disease without esophagitis
== END 2025-04-25 13:31 | DRG 448 ==
LOC: ASU 07:43 → 3E 11:48